=== PATIENT | male | born 1960 | race Caucasian/White ===

== ENCOUNTER 2016-08-10 17:28 | Emergency (ER) | payer OTHER ==
[~2016-08-10] VITALS: Ht 182.9 cm; Wt 128.0 kg
[~2016-08-10 17:28] MED LIST: FURO40TA3 PO; LEVO150T PO; POTA10CA28 PO
[2016-08-10 17:43] VITALS: BP 136/95; PULSE 85; TEMP 36.5; O2SAT 96; Ht 182.9 cm; Wt 128.0 kg
--- NOTE | 2016-08-10 18:18 | DIAGNOSTIC IMAGING REPORT ---
RIGHT ANKLE MIN 3 VIEWS ROUTINE CLINICAL HISTORY: Right ankle pain status post trauma COMPARISON: None. DISCUSSION: There is bimalleolar soft tissue swelling. There is a nondisplaced fracture the medial malleolus. There is a corticated ossicle at the lateral malleolar tip which is felt to be old. The ankle mortise appears intact. There is plantar calcaneal spurring. IMPRESSION: 1. Nondisplaced fracture involving the medial malleolus 2. 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 Bimalleolar soft tissue swelling Electronically signed by: Tyrell Nance M.D. 08/10/2016 6:16 PM Dictated Date/Time: 08/10/2016 6:15 PM
[2016-08-10] MEDS ORDERED: OXYC1TAB3 PO (19:15)
[2016-08-10] MEDS ORDERED: OXYCODONE IR HOME PACK PO ONE (19:15)
--- NOTE | 2016-08-10 21:36 | EMERGENCY ROOM VISIT NOTE ---
ED Visit Note First contact with patient: 17:47 CHIEF COMPLAINT: Ankle pain HISTORY OF PRESENT ILLNESS: This 56-year-old male patient presents to the emergency department after sustaining an injury to the right ankle and foot with a twisting, inversion motion about one hour ago. The patient was cutting wood, when he twisted, and injured his ankle. The patient complains of pain along the outside of the ankle. The patient is without pain of the foot. The patient rates the pain as dull and 7/10. The patient is not comfortably able to bear weight on the foot. Constant pain, worse with movement, weight bearing , and the dependent position. No knee pain, the patient is able to move their toes. No numbness or weakness of the foot, no laceration. The patient has not had a previous fracture to this ankle. The patient has taken nothing for the pain. The patient denies any other injury. REVIEW OF SYSTEMS: A 6 system review of systems was completed with positives and pertinent negatives listed in the HPI. ALLERGIES: No known allergies MEDICATIONS: No chronic medications PMH: Otherwise healthy SOCIAL HISTORY: Lives locally PHYSICAL EXAM: Vital Signs: Reviewed Nurse's notes, vital signs stable. GENERAL : White male, no acute distress, but appears in pain, well-developed, well- nourished. MENTAL STATUS: Alert, oriented to person place and time, and cooperative. MUSCULOSKELETAL: The right ankle is swollen and tender over the medial malleolus, but the skin is intact and there is no ligamentous instability. There is no fifth metatarsal tenderness. There is no tenderness over the rest of the foot. There is no calf or tibia/fibular tenderness. There is no visual deformity. The foot and toes are warm and well-perfused. Dorsalis pedis pulse 2+. Sensation to pain and light touch is intact. Capillary refill less than 2 seconds. RIGHT ANKLE MIN 3 VIEWS ROUTINE CLINICAL HISTORY: Right ankle pain status post trauma COMPARISON: None. DISCUSSION: There is bimalleolar soft tissue swelling. There is a nondisplaced fracture the medial malleolus. There is a corticated ossicle at the lateral malleolar tip which is felt to be old. The ankle mortise appears intact. There is plantar calcaneal spurring. IMPRESSION: 1. Nondisplaced fracture involving the medial malleolus 2. 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 Bimalleolar soft tissue swelling EMERGENCY DEPARTMENT COURSE: Physical exam and history were performed. Nursing notes and EMR were reviewed. The patient appears to have suffered injury to his right ankle. X-ray was obtained and read by myself and radiology as showing an acute fracture of the medial malleolus. The patient was placed in an Ortho-Glass splint with neurovascular status remaining intact. He was provided crutches and a course of oxycodone. She will need to follow with orthopedics for further care and management. He was otherwise invited back to the ER with new, worsening, or concerning symptoms. Problem List Medical Problems: (1) Bronchitis Nos Status: Resolved (2) Calcium Metab Disord,Nos Status: Chronic (3) Hyperlipidemia Nec/Nos Status: Chronic (4) Myalgia And Myositis Nos Status: Chronic (5) Obesity, Nos Status: Chronic Current/Historical Medications Scheduled Furosemide (Lasix), 40 MG PO BID Levothyroxine Sodium (Synthroid), 150 MCG PO QAM Potassium Chloride (Micro-K Ext Rel), 10 MEQ PO BID Scheduled PRN Oxycodone Immediate Rel Tab (Roxicodone Ir), 1-2 TAB PO Q6 PRN for Pain Allergies Coded Allergies: No Known Allergies (Unverified , 05/24/16) Vital Signs Date Time Temp Pulse Resp B/P Pulse Ox O2 Delivery O2 Flow Rate FiO2 08/10/16 17:43 36.5 85 18 136/95 96 Room Air Medications Administered Medications (Trade) Dose Ordered Sig/Elmo Route Start Time Stop Time Status Last Admin Dose Admin Oxycodone HCl (Roxicodone Immediate Rel 5MG Home Pack) 1 homepack UD ONCE PO 08/10/16 19:15 08/10/16 19:16 DC 08/10/16 19:45 1 HOMEPACK Departure Information Impression Primary Impression: Fracture of distal end of left fibula Dispostion Home / Self-Care Condition GOOD Prescriptions Oxycodone Immediate Rel Tab (ROXICODONE IR) 5 Mg Tab 1-2 TAB PO Q6 Y for Pain, #24 TAB Prov: Gil Juarez PA-C 08/10/16 Referrals Luís Carrasco M.D. (PCP) Abdiaziz Warren M.D. Forms HOME CARE DOCUMENTATION FORM, IMPORTANT VISIT INFORMATION Patient Instructions [facility], ED Fx Ankle General, ED Compartment Syndrome At Risk For Additional Instructions You were seen and evaluated today on an emergency basis only. This is not a substitute for, or an effort to provide, complete comprehensive medical care. It is not possible to recognize and treat all injuries or illnesses in a single emergency department visit. For this reason it is recommended that you followup with [facility] , Dr. Warren's office, by telephone in the morning to arrange a follow-up visit this week. Let them know you were seen in the emergency department to help facilitate care. For baseline pain relief you may alternate ibuprofen and acetaminophen every 4 hours for pain control. Take 600 mg ibuprofen (Advil) and then 4 hours later take 1000 mg acetaminophen (Tylenol). Do not take more than 3000 mg acetaminophen in a single day. Oxycodone (OxyIR) 5mg: Take ONE or TWO pills every SIX hours for breakthrough pain. Avoid alcohol, operating machinery or dangerous equipment, working on ladders or roofs, DRIVING, or situations where being under the influence may be dangerous. It is recommended to use an [id number] stool softener such as Colace, 100mg twice daily while taking this medication to avoid constipation. Do not get your splint wet. Use your crutches to help with walking. You are welcome to return to the emergency department anytime with new, worsening, or concerning symptoms.
== END 2016-08-10 19:47 | disposition home or self-care (01) ==
LOC: C.EDB 17:29 → C.EDD 19:47
DX: S82.891A Other fracture of right lower leg, initial encounter for closed fracture (principal); X58.XXXA Exposure to other specified factors, initial encounter

== ENCOUNTER → 2016-10-22 | Outpatient (CLI) | payer OTHER ==
[~2016-10-22] MED LIST changes: +OXYC1TAB3 PO
[2016-10-22 18:25] LABS: BLOOD UREA NITROGEN 17 mg/dl (7-18); BUN/CREATININE RATIO 21.8 (10-20); CALCIUM 9.4 mg/dl (8.5-10.1); CARBON DIOXIDE 32 mmol/L (21-32); CHLORIDE 99 mmol/L (98-107); GLUCOSE 84 mg/dl (70-99); POTASSIUM 3.6 mmol/L (3.5-5.1); SODIUM 137 mmol/L (136-145)
== END | disposition home or self-care (01) ==
LOC: C.LABSPEC 14:20
PROVIDERS: ATTEND Internal Medicine
DX: E03.9 Hypothyroidism, unspecified (principal)

== ENCOUNTER → 2017-02-07 | Outpatient (CLI) | payer OTHER | END | disposition home or self-care (01) | LOC: C.LABSPEC 18:03 | PROVIDERS: ATTEND Internal Medicine | DX: E03.9 Hypothyroidism, unspecified (principal) ==

== ENCOUNTER 2020-09-16 10:09 | Inpatient (IN) ==
[~2020-09-16 10:09] MED LIST changes: +ETOMIDATE 2 MG/ML 20 ML VIAL IV ONE; -FURO40TA3 PO; -LEVO150T PO; +MIDAZOLAM HCL 5 MG/ML VIAL IV ONE; -OXYC1TAB3 PO; -POTA10CA28 PO; +SUCCINYLCHOLINE CHLORIDE 20 MG/ML 10 ML VIAL IV ONE; +fentaNYL citrate 100 MCG/2 ML VIAL IV ONE
[2020-09-16] MEDS ORDERED: cefTRIAXone SODIUM 2,000 MG/70 ML BAG IV STA (10:28)
--- NOTE | 2020-09-16 10:40 | Emergency Department Note ---
Impression & Plan Pneumonia due to COVID-19 virus, Acute respiratory failure with hypoxia ED Provider Note Provider: Dat Pelayo MD DATE OF SERVICE: 09/16/2020 CHIEF COMPLAINT: Weakness, shortness of breath HISTORY OF PRESENT ILLNESS: Patient is a 60-year-old gentleman with a history of thyroid dysfunction presenting today via ambulance from home. Reports the patient was found to be hypoxic in the mid 50s on room air. Evidently is been sick for just over a week and was seen by his primary doctor last week and start amoxicillin this past . Patient states this might of helped a little bit. Evidently per EMS the niece checked on the patient's morning was able to get around and seemed much worse and somewhat lethargic and short of breath and thus called the ambulance. EMS reports that the niece had last seen him over the weekend and he was not doing near as bad. Patient states he feels fatigued and a bit short of breath but is very tired. Has been having fevers and febrile upon arrival here. Denies a smoking history. Denies any significant swelling. Denies chest pain or significant abdominal pain. He denies significant nausea or diarrhea. Patient denies taking any Tylenol today but has the last several days. REVIEW OF SYSTEMS: A total of 10 review of systems was obtained and negative except as stated above in the HPI. PAST MEDICAL HISTORY: As noted above MEDICATIONS: Reviewed home medications with the patient SOCIAL HISTORY: Patient denies smoking, patient lives by himself PHYSICAL EXAM: GENERAL: alert and oriented to person sitting on the stretcher appears in respiratory distress Head: normocephalic and atraumatic EYES: No injection, discharge or icterus. NECK: Trachea midline. Supple. ENT: Mucous membranes pink and moist. LUNGS: Airway patent. With tachypnea and increased work of breathing but the lung sounds are clear HEART: Regular tachycardic tachycardic rate and rhythm. No chest wall tenderness ABDOMEN: Soft and non-tender, without guarding or rebound. SKIN: Acyanotic, warm, dry, without rashes EXTREMITIES: Without significant tenderness with bilateral lower extremity swelling approximately 1-2+. No significant erythema noted. NEUROLOGICAL: No focal deficits. No aphasia. No facial droop or slurred speech. EK bpm sinus tachycardia without PVC or PAC. Some respiratory artifact but no clear ST segment elevation or depression appreciated. Incomplete right bundle rasheeda block noted. QTc 419. CONTINUOUS CARDIAC MONITORING: was ordered and showed a heart rate of 80s-110s bpm in sinus tachycardia to normal sinus rhythm ED Intubation Performed by myself with verbal consent from the patient Indication acute hypoxic respiratory failure. The patient was on 100% oxygen via BiPAP prior to the procedure. Suction, airway equipment, RSI drugs, respiratory equipment, and appropriate personnel were prepared prior to the initiation of the procedure. A time out was taken. Induction was performed with 25 mg of etomidate and paralysis with 150 mg of succinylcholine. After observing the clinical benefit of the medications, the airway was easily visualized utilizing a 3 glide scope. A 7.0 size ETT tube was placed atraumatically to 25 cm at the lips using standard technique. Patient did desat after initially starting intubation in the high 80s to 58% transiently during the procedure with 1 attempt to complete the intubation . The cuff inflated without signs of malfunction. There were bilateral breath sounds, positive colormetric change, no gastric sounds and postintubation x-ray obtained showing appropriate placement.. Post intubation sedation was administered using propofol drip with several pushes of Versed and fentanyl. Patient's laboratory studies and imaging reviewed. Differential includes Infection, dehydration, metabolic abnormality, hypo/hyperglycemia, electrolyte disturbance, anemia, hypoxia, cardiac sources, intracerebral event, toxicologic, neurologic, as well as other pathologies. IMPRESSION/MEDICAL DECISION MAKING: Patient is significantly hypoxic here on room air as well as on nonrebreather and switched to BiPAP quickly by respiratory given his hypoxia. Tachypneic with work of breathing and seems fatigued. Patient recent treatment with amoxicillin for respiratory complaint. No recent Covid test and this was sent. VBG and blood work including cultures and lactate was given. Patient without significant abdominal tenderness on exam. Patient states his swelling of the lower extremities is at baseline. Denies recent sick contact to his knowledge. Patient has not received any Covid vaccines. Given the fever and respiratory distress empirically given a dose of ceftriaxone to cover for any possible pneumonia. Laboratory studies without severe leukocytosis. D-dimer significantly at 6650. Mild hyponatremia. Lactate value at 2.1. Troponin just elevated likely demand in the setting of his hypoxia but the patient declines chest pain.. CRP significantly elevated. Covid was positive. Procalcitonin severely elevated 22.9. Patient's hypoxia persisted on BiPAP in the mid to high 80s again tachypneic. X-ray with diffuse infiltrative findings consistent with Covid pneumonia unfortunately. Given this discussed with the patient proceeding with intubation given the severe Covid pneumonia and respiratory status. He was in agreement and stated he would want everything done. Intubation as above. Patient slowly recovered after the derecruitment for the intubation with initial hypoxia resolving over 10 to 15 minutes to around 90%. Patient required significant sedation with propofol drip, fentanyl pushes, and Versed. Hospitalist was contacted. Unfortunately do not have documented contact information for patient's family to update them at this time. We will plan for CT of the chest to exclude PE given the D-dimer however given the findings believe his predominant issue again is Covid pneumonia. Discussed with the hospitalist with the plan to perform CTA on the way to the ICU. Hospitalist team is contacted by the director private as well. Patient's blood pressure decreased with increased propofol sedation and norepinephrine drip was ordered by the hospitalist team while here. Dr. Beckwith of the ICU evaluated the patient in the ER with plan for central line and ICU admission. IV dexamethasone was ordered given the hypoxic Covid patient. IV Tylenol ordered given the fever initially. DIAGNOSIS: Acute hypoxic respiratory failure, Covid pneumonia DISPOSITION: Hospitalist will evaluate Critical Care I have personally spent 52 minutes of critical care time in the direct management of this patient. This includes bedside care, interpretation of diagnostic studies, and testing, discussion with consultants, patient, and family members, and other required patient management activities. These 52 minutes is in excess of all separately billable procedures. Past Med/Surg History Family History (Updated 09/16/20 @ 13:31 by LUCY Kasper) Unknown No significant family history Social History Smoking Status: Never smoker Preferred Language: Moh[place] Feels Safe at Home: Yes Allergies Allergies Allergy/AdvReac Type Severity Reaction Status Date / Time No Known Allergies Allergy Unverified 05/24/16 12:21 Home Meds Home Medications Medication Instructions Recorded Confirmed FUROSEMIDE (LASIX) 40 mg PO BID #0 05/13/16 LEVOTHYROXINE SODIUM (SYNTHROID) 150 mcg PO QAM #0 05/13/16 Potassium Chloride (Micro-K Ext 10 meq PO BID #0 05/13/16 Rel) amoxicillin-pot clavulanate 1 tab PO UD 09/16/20 09/16/20 furosemide 40 mg PO BID 09/16/20 09/16/20 levothyroxine 175 mcg PO UD 09/16/20 09/16/20 potassium chloride 10 meq PO BID 09/16/20 09/16/20 Results & Data (ED) Vital Signs Vital Signs - 24 hr 09/16/20 10:28 09/16/20 10:33 09/16/20 10:34 Temperature 38.9 C H Temperature Source Oral Pulse Rate 111 H 102 H 103 H Pulse Rate from SpO2 Sensor 102 H Respiratory Rate 32 H 30 H 35 H Respiratory Effort / Characteristics Non-Labored Spontaneous Respiratory Depth Shallow Normal Respiratory Pattern Regular Blood Pressure 127/70 127/70 Blood Pressure Mean 89 89 Blood Pressure Position Sitting Pulse Oximetry 56 L 89 L 88 L Oxygen Delivery Method Room Air Non-rebreather Oxygen Flow Rate 0 Fraction of Inspired Oxygen 100 Sepsis Recent Fever Within 48 Hours Yes Sepsis New/Unexplained Change in Mental Status Yes Sepsis Action Taken by Nursing Physician Notified Arterial BP Systolic Arterial BP Diastolic Arterial BP Mean Arterial Pulse Rate Oxygen Flow Rate - Titration 15 Pulse Oximetry Post Tiitration 77 L 09/16/20 10:39 09/16/20 10:45 09/16/20 10:56 Temperature Temperature Source Pulse Rate 104 H 103 H 101 H Pulse Rate from SpO2 Sensor 104 H 103 H 101 H Respiratory Rate 25 H 35 H 32 H Respiratory Effort / Characteristics Respiratory Depth Respiratory Pattern Blood Pressure 133/74 Blood Pressure Mean 93 Blood Pressure Position Pulse Oximetry 90 90 87 L Oxygen Delivery Method BiPAP BiPAP Oxygen Flow Rate Fraction of Inspired Oxygen Sepsis Recent Fever Within 48 Hours Sepsis New/Unexplained Change in Mental Status Sepsis Action Taken by Nursing Arterial BP Systolic Arterial BP Diastolic Arterial BP Mean Arterial Pulse Rate Oxygen Flow Rate - Titration Pulse Oximetry Post Tiitration 09/16/20 11:00 09/16/20 11:15 09/16/20 11:16 Temperature Temperature Source Pulse Rate 100 H 97 H 97 H Pulse Rate from SpO2 Sensor 100 H 97 H 97 H Respiratory Rate 34 H 27 H 27 H Respiratory Effort / Characteristics Respiratory Depth Respiratory Pattern Blood Pressure 124/71 130/73 Blood Pressure Mean 88 92 Blood Pressure Position Pulse Oximetry 83 L 87 L 87 L Oxygen Delivery Method BiPAP Oxygen Flow Rate Fraction of Inspired Oxygen Sepsis Recent Fever Within 48 Hours Sepsis New/Unexplained Change in Mental Status Sepsis Action Taken by Nursing Arterial BP Systolic Arterial BP Diastolic Arterial BP Mean Arterial Pulse Rate Oxygen Flow Rate - Titration Pulse Oximetry Post Tiitration 09/16/20 11:26 09/16/20 11:30 09/16/20 11:31 Temperature Temperature Source Pulse Rate 99 H 104 H 112 H Pulse Rate from SpO2 Sensor 99 H 106 H 112 H Respiratory Rate 30 H 38 H 26 H Respiratory Effort / Characteristics Respiratory Depth Respiratory Pattern Blood Pressure 135/77 143/86 H Blood Pressure Mean 96 105 Blood Pressure Position Pulse Oximetry 87 L 77 L 58 L Oxygen Delivery Method Oxygen Flow Rate Fraction of Inspired Oxygen Sepsis Recent Fever Within 48 Hours Sepsis New/Unexplained Change in Mental Status Sepsis Action Taken by Nursing Arterial BP Systolic Arterial BP Diastolic Arterial BP Mean Arterial Pulse Rate Oxygen Flow Rate - Titration Pulse Oximetry Post Tiitration 09/16/20 11:32 09/16/20 11:38 09/16/20 11:40 Temperature Temperature Source Pulse Rate 105 H 106 H 100 H Pulse Rate from SpO2 Sensor 104 H 106 H 101 H Respiratory Rate 17 24 15 Respiratory Effort / Characteristics Respiratory Depth Respiratory Pattern Blood Pressure 173/90 H 182/101 H 143/77 H Blood Pressure Mean 117 128 99 Blood Pressure Position Pulse Oximetry 64 L 75 L 79 L Oxygen Delivery Method Mechanical Vent Mechanical Vent Mechanical Vent Oxygen Flow Rate Fraction of Inspired Oxygen Sepsis Recent Fever Within 48 Hours Sepsis New/Unexplained Change in Mental Status Sepsis Action Taken by Nursing Arterial BP Systolic Arterial BP Diastolic Arterial BP Mean Arterial Pulse Rate Oxygen Flow Rate - Titration Pulse Oximetry Post Tiitration 09/16/20 11:41 09/16/20 11:45 09/16/20 11:46 Temperature Temperature Source Pulse Rate 101 H 102 H 100 H Pulse Rate from SpO2 Sensor 101 H 102 H 100 H Respiratory Rate 17 24 21 Respiratory Effort / Characteristics Respiratory Depth Respiratory Pattern Blood Pressure 121/64 Blood Pressure Mean 83 Blood Pressure Position Pulse Oximetry 78 L 78 L 78 L Oxygen Delivery Method Mechanical Vent Mechanical Vent Mechanical Vent Oxygen Flow Rate Fraction of Inspired Oxygen Sepsis Recent Fever Within 48 Hours Sepsis New/Unexplained Change in Mental Status Sepsis Action Taken by Nursing Arterial BP Systolic Arterial BP Diastolic Arterial BP Mean Arterial Pulse Rate Oxygen Flow Rate - Titration Pulse Oximetry Post Tiitration 09/16/20 11:50 09/16/20 11:58 09/16/20 12:00 Temperature Temperature Source Pulse Rate 96 H 93 H 92 H Pulse Rate from SpO2 Sensor 96 H 93 H 92 H Respiratory Rate 29 H 18 23 Respiratory Effort / Characteristics Respiratory Depth Respiratory Pattern Blood Pressure 112/57 L 116/59 L 109/63 Blood Pressure Mean 75 78 78 Blood Pressure Position Pulse Oximetry 78 L 91 90 Oxygen Delivery Method Mechanical Vent Mechanical Vent Mechanical Vent Oxygen Flow Rate Fraction of Inspired Oxygen Sepsis Recent Fever Within 48 Hours Sepsis New/Unexplained Change in Mental Status Sepsis Action Taken by Nursing Arterial BP Systolic Arterial BP Diastolic Arterial BP Mean Arterial Pulse Rate Oxygen Flow Rate - Titration Pulse Oximetry Post Tiitration 09/16/20 12:01 09/16/20 12:05 09/16/20 12:06 Temperature 38.3 C H Temperature Source Axillary Pulse Rate 94 H 94 H Pulse Rate from SpO2 Sensor 94 H 93 H Respiratory Rate 23 23 Respiratory Effort / Characteristics Respiratory Depth Respiratory Pattern Blood Pressure 113/61 Blood Pressure Mean 78 Blood Pressure Position Pulse Oximetry 90 88 L Oxygen Delivery Method Mechanical Vent Mechanical Vent Oxygen Flow Rate Fraction of Inspired Oxygen Sepsis Recent Fever Within 48 Hours Sepsis New/Unexplained Change in Mental Status Sepsis Action Taken by Nursing Arterial BP Systolic Arterial BP Diastolic Arterial BP Mean Arterial Pulse Rate Oxygen Flow Rate - Titration Pulse Oximetry Post Tiitration 09/16/20 12:08 09/16/20 12:10 09/16/20 12:15 Temperature Temperature Source Pulse Rate 92 H 91 H Pulse Rate from SpO2 Sensor 92 H 91 H Respiratory Rate 23 24 25 H Respiratory Effort / Characteristics Respiratory Depth Respiratory Pattern Blood Pressure 107/60 101/58 L Blood Pressure Mean 75 72 Blood Pressure Position Pulse Oximetry 82 L 83 L Oxygen Delivery Method Mechanical Vent Mechanical Vent Oxygen Flow Rate Fraction of Inspired Oxygen 100 Sepsis Recent Fever Within 48 Hours Sepsis New/Unexplained Change in Mental Status Sepsis Action Taken by Nursing Arterial BP Systolic Arterial BP Diastolic Arterial BP Mean Arterial Pulse Rate Oxygen Flow Rate - Titration Pulse Oximetry Post Tiitration 09/16/20 12:16 09/16/20 12:20 09/16/20 12:21 Temperature Temperature Source Pulse Rate 92 H 89 88 Pulse Rate from SpO2 Sensor 92 H 90 87 Respiratory Rate 24 21 18 Respiratory Effort / Characteristics Respiratory Depth Respiratory Pattern Blood Pressure 87/61 L 86/58 L Blood Pressure Mean 69 67 Blood Pressure Position Pulse Oximetry 82 L 85 L 84 L Oxygen Delivery Method Mechanical Vent Mechanical Vent Mechanical Vent Oxygen Flow Rate Fraction of Inspired Oxygen Sepsis Recent Fever Within 48 Hours Sepsis New/Unexplained Change in Mental Status Sepsis Action Taken by Nursing Arterial BP Systolic Arterial BP Diastolic Arterial BP Mean Arterial Pulse Rate Oxygen Flow Rate - Titration Pulse Oximetry Post Tiitration 09/16/20 12:22 09/16/20 12:25 09/16/20 12:29 Temperature Temperature Source Pulse Rate 87 87 88 Pulse Rate from SpO2 Sensor 87 87 88 Respiratory Rate 20 24 24 Respiratory Effort / Characteristics Respiratory Depth Respiratory Pattern Blood Pressure 85/53 L 81/52 L Blood Pressure Mean 63 61 Blood Pressure Position Pulse Oximetry 86 L 89 L 91 Oxygen Delivery Method Mechanical Vent Mechanical Vent Mechanical Vent Oxygen Flow Rate Fraction of Inspired Oxygen Sepsis Recent Fever Within 48 Hours Sepsis New/Unexplained Change in Mental Status Sepsis Action Taken by Nursing Arterial BP Systolic Arterial BP Diastolic Arterial BP Mean Arterial Pulse Rate Oxygen Flow Rate - Titration Pulse Oximetry Post Tiitration 09/16/20 12:30 09/16/20 12:31 09/16/20 12:35 Temperature Temperature Source Pulse Rate 87 87 88 Pulse Rate from SpO2 Sensor 85 87 88 Respiratory Rate 24 24 24 Respiratory Effort / Characteristics Respiratory Depth Respiratory Pattern Blood Pressure 81/54 L 77/51 L Blood Pressure Mean 63 59 Blood Pressure Position Pulse Oximetry 90 90 90 Oxygen Delivery Method Mechanical Vent Mechanical Vent Mechanical Vent Oxygen Flow Rate Fraction of Inspired Oxygen Sepsis Recent Fever Within 48 Hours Sepsis New/Unexplained Change in Mental Status Sepsis Action Taken by Nursing Arterial BP Systolic Arterial BP Diastolic Arterial BP Mean Arterial Pulse Rate Oxygen Flow Rate - Titration Pulse Oximetry Post Tiitration 09/16/20 12:40 09/16/20 12:45 09/16/20 12:46 Temperature Temperature Source Pulse Rate 87 85 84 Pulse Rate from SpO2 Sensor 87 85 84 Respiratory Rate 24 23 23 Respiratory Effort / Characteristics Respiratory Depth Respiratory Pattern Blood Pressure 78/49 L 89/57 L Blood Pressure Mean 58 67 Blood Pressure Position Pulse Oximetry 90 87 L 88 L Oxygen Delivery Method Mechanical Vent Mechanical Vent Mechanical Vent Oxygen Flow Rate Fraction of Inspired Oxygen Sepsis Recent Fever Within 48 Hours Sepsis New/Unexplained Change in Mental Status Sepsis Action Taken by Nursing Arterial BP Systolic Arterial BP Diastolic Arterial BP Mean Arterial Pulse Rate Oxygen Flow Rate - Titration Pulse Oximetry Post Tiitration 09/16/20 12:50 09/16/20 12:55 09/16/20 13:00 Temperature Temperature Source Pulse Rate 90 91 H 92 H Pulse Rate from SpO2 Sensor 90 91 H 92 H Respiratory Rate 18 21 18 Respiratory Effort / Characteristics Respiratory Depth Respiratory Pattern Blood Pressure 97/65 L 112/68 114/67 Blood Pressure Mean 75 82 82 Blood Pressure Position Pulse Oximetry 86 L 86 L 86 L Oxygen Delivery Method Mechanical Vent Mechanical Vent Mechanical Vent Oxygen Flow Rate Fraction of Inspired Oxygen Sepsis Recent Fever Within 48 Hours Sepsis New/Unexplained Change in Mental Status Sepsis Action Taken by Nursing Arterial BP Systolic 97 Arterial BP Diastolic 58 Arterial BP Mean 72 Arterial Pulse Rate 105 H Oxygen Flow Rate - Titration Pulse Oximetry Post Tiitration 09/16/20 13:01 09/16/20 13:10 09/16/20 13:15 Temperature Temperature Source Pulse Rate 91 H 90 91 H Pulse Rate from SpO2 Sensor 91 H 91 H 91 H Respiratory Rate 17 18 18 Respiratory Effort / Characteristics Respiratory Depth Respiratory Pattern Blood Pressure 139/85 129/85 Blood Pressure Mean 103 99 Blood Pressure Position Pulse Oximetry 86 L 87 L 88 L Oxygen Delivery Method Mechanical Vent Mechanical Vent Mechanical Vent Oxygen Flow Rate Fraction of Inspired Oxygen Sepsis Recent Fever Within 48 Hours Sepsis New/Unexplained Change in Mental Status Sepsis Action Taken by Nursing Arterial BP Systolic 108 103 107 Arterial BP Diastolic 68 62 61 Arterial BP Mean 79 74 74 Arterial Pulse Rate 91 H 90 91 H Oxygen Flow Rate - Titration Pulse Oximetry Post Tiitration 09/16/20 13:16 09/16/20 13:20 09/16/20 13:25 Temperature Temperature Source Pulse Rate 91 H 91 H 90 Pulse Rate from SpO2 Sensor 91 H 91 H 91 H Respiratory Rate 21 21 16 Respiratory Effort / Characteristics Respiratory Depth Respiratory Pattern Blood Pressure 137/85 136/85 Blood Pressure Mean 102 102 Blood Pressure Position Pulse Oximetry 88 L 89 L 89 L Oxygen Delivery Method Mechanical Vent Mechanical Vent Mechanical Vent Oxygen Flow Rate Fraction of Inspired Oxygen Sepsis Recent Fever Within 48 Hours Sepsis New/Unexplained Change in Mental Status Sepsis Action Taken by Nursing Arterial BP Systolic 106 110 110 Arterial BP Diastolic 62 59 60 Arterial BP Mean 74 74 75 Arterial Pulse Rate 91 H 91 H 90 Oxygen Flow Rate - Titration Pulse Oximetry Post Tiitration Laboratory Data Result diagrams: 09/16/20 10:27 09/16/20 10:27 Lab Results 09/16/20 09/16/20 09/16/20 Range/Units 10:27 10:27 10:27 WBC 10.33 (4.8-10.8) K/uL RBC 4.48 L (4.7-6.1) M/uL Hgb 13.3 L (14.0-18.0) g/dL Hct 39.5 L (42-52) % MCV 88.2 (80-100) fL MCH 29.7 (25-34) pg MCHC 33.7 (32-36) g/dL RDW Std Deviation 50.5 H (36.4-46.3) fL RDW Coeff of Royce 15.7 H (11.5-14.5) % Plt Count 136 (130-400) K/uL Neutrophils % (Manual) 94.8 % Lymphocytes % (Manual) 2.6 % Monocytes % (Manual) 1.7 % Metamyelocytes % (Man) 0.9 % Neutrophils # (Manual) 9.79 H (1.4-6.5) K/uL Total Absolute Neuts 9.79 H (1.4-6.5) K/uL Lymphocytes # (Manual) 0.27 L (1.2-3.4) K/uL Total Abs Lymphocytes 0.27 L (1.2-3.4) K/uL Monocytes # (Manual) 0.18 (0.11-0.59) K/uL Metamyelocytes # (Man) 0.09 H (0-0) K/uL Platelet Estimate Decreased L (Normal) Giant Platelets 1+ PT 11.6 (9.0-12.0) Seconds INR 1.2 H (0.9-1.1) D-Dimer 6650 H* (0-500) ug/L FEU VBG pH (7.36-7.41) VBG pCO2 (38-50) mmHg VBG pO2 mmHg VBG HCO3 mmol/L VBG O2 Saturation % VBG Base Excess mEq/L Barometric Pressure mm/Hg Sodium 131 L (136-145) mmol/L Potassium 3.7 (3.5-5.1) mmol/L Chloride 96 L (98-107) mmol/L Carbon Dioxide 27 (21-32) mmol/L Anion Gap 8.0 (3-11) BUN 30 H (7-18) mg/dl Creatinine 1.24 (0.6-1.4) mg/dl Est Cr Clr Drug Dosing 94.1 ml/min Est GFR ( Amer) 73.8 Est GFR (Non-Af Amer) 63.7 BUN/Creatinine Ratio 23.9 H (10-20) Glucose 103 H (70-99) mg/dl Lactate (0.4-2.0) mmol/L Calcium 8.4 L (8.5-10.1) mg/dl Total Bilirubin 0.8 (0.2-1) mg/dl AST 204 H (15-37) U/L ALT 64 (12-78) U/L Alkaline Phosphatase 72 (45-117) U/L Troponin I 0.074 H* (0-0.045) ng/ml C-Reactive Protein 35.70 H (0-0.29) mg/dl NT-Pro-B Natriuret Pep 372 (0-900) pg/ml Total Protein 9.1 H (6.4-8.2) gm/dl Albumin 2.6 L (3.4-5.0) gm/dl Globulin 6.5 H (2.5-4.0) gm/dl Albumin/Globulin Ratio 0.4 L (0.9-2) Lipase 187 (73-393) U/L Procalcitonin (0-0.5) ng/ml COVID-19 Eval Order SARS-CoV-2 (PCR) (Negative) Influenza Type A (PCR) (Neg) Influenza Type B (PCR) (Neg) RSV (RT-PCR) (Neg) 09/16/20 09/16/20 09/16/20 Range/Units 10:27 10:27 10:42 WBC (4.8-10.8) K/uL RBC (4.7-6.1) M/uL Hgb (14.0-18.0) g/dL Hct (42-52) % MCV (80-100) fL MCH (25-34) pg MCHC (32-36) g/dL RDW Std Deviation (36.4-46.3) fL RDW Coeff of Royce (11.5-14.5) % Plt Count (130-400) K/uL Neutrophils % (Manual) % Lymphocytes % (Manual) % Monocytes % (Manual) % Metamyelocytes % (Man) % Neutrophils # (Manual) (1.4-6.5) K/uL Total Absolute Neuts (1.4-6.5) K/uL Lymphocytes # (Manual) (1.2-3.4) K/uL Total Abs Lymphocytes (1.2-3.4) K/uL Monocytes # (Manual) (0.11-0.59) K/uL Metamyelocytes # (Man) (0-0) K/uL Platelet Estimate (Normal) Giant Platelets PT (9.0-12.0) Seconds INR (0.9-1.1) D-Dimer (0-500) ug/L FEU VBG pH 7.49 H (7.36-7.41) VBG pCO2 36 L (38-50) mmHg VBG pO2 43 mmHg VBG HCO3 27 mmol/L VBG O2 Saturation 82.0 % VBG Base Excess 3.9 mEq/L Barometric Pressure 732.9 mm/Hg Sodium (136-145) mmol/L Potassium (3.5-5.1) mmol/L Chloride (98-107) mmol/L Carbon Dioxide (21-32) mmol/L Anion Gap (3-11) BUN (7-18) mg/dl Creatinine (0.6-1.4) mg/dl Est Cr Clr Drug Dosing ml/min Est GFR ( Amer) Est GFR (Non-Af Amer) BUN/Creatinine Ratio (10-20) Glucose (70-99) mg/dl Lactate 2.2 H* (0.4-2.0) mmol/L Calcium (8.5-10.1) mg/dl Total Bilirubin (0.2-1) mg/dl AST (15-37) U/L ALT (12-78) U/L Alkaline Phosphatase (45-117) U/L Troponin I (0-0.045) ng/ml C-Reactive Protein (0-0.29) mg/dl NT-Pro-B Natriuret Pep (0-900) pg/ml Total Protein (6.4-8.2) gm/dl Albumin (3.4-5.0) gm/dl Globulin (2.5-4.0) gm/dl Albumin/Globulin Ratio (0.9-2) Lipase (73-393) U/L Procalcitonin 22.99 H (0-0.5) ng/ml COVID-19 Eval Order SARS-CoV-2 (PCR) (Negative) Influenza Type A (PCR) (Neg) Influenza Type B (PCR) (Neg) RSV (RT-PCR) (Neg) 09/16/20 09/16/20 Range/Units 11:05 11:05 WBC (4.8-10.8) K/uL RBC (4.7-6.1) M/uL Hgb (14.0-18.0) g/dL Hct (42-52) % MCV (80-100) fL MCH (25-34) pg MCHC (32-36) g/dL RDW Std Deviation (36.4-46.3) fL RDW Coeff of Royce (11.5-14.5) % Plt Count (130-400) K/uL Neutrophils % (Manual) % Lymphocytes % (Manual) % Monocytes % (Manual) % Metamyelocytes % (Man) % Neutrophils # (Manual) (1.4-6.5) K/uL Total Absolute Neuts (1.4-6.5) K/uL Lymphocytes # (Manual) (1.2-3.4) K/uL Total Abs Lymphocytes (1.2-3.4) K/uL Monocytes # (Manual) (0.11-0.59) K/uL Metamyelocytes # (Man) (0-0) K/uL Platelet Estimate (Normal) Giant Platelets PT (9.0-12.0) Seconds INR (0.9-1.1) D-Dimer (0-500) ug/L FEU VBG pH (7.36-7.41) VBG pCO2 (38-50) mmHg VBG pO2 mmHg VBG HCO3 mmol/L VBG O2 Saturation % VBG Base Excess mEq/L Barometric Pressure mm/Hg Sodium (136-145) mmol/L Potassium (3.5-5.1) mmol/L Chloride (98-107) mmol/L Carbon Dioxide (21-32) mmol/L Anion Gap (3-11) BUN (7-18) mg/dl Creatinine (0.6-1.4) mg/dl Est Cr Clr Drug Dosing ml/min Est GFR ( Amer) Est GFR (Non-Af Amer) BUN/Creatinine Ratio (10-20) Glucose (70-99) mg/dl Lactate (0.4-2.0) mmol/L Calcium (8.5-10.1) mg/dl Total Bilirubin (0.2-1) mg/dl AST (15-37) U/L ALT (12-78) U/L Alkaline Phosphatase (45-117) U/L Troponin I (0-0.045) ng/ml C-Reactive Protein (0-0.29) mg/dl NT-Pro-B Natriuret Pep (0-900) pg/ml Total Protein (6.4-8.2) gm/dl Albumin (3.4-5.0) gm/dl Globulin (2.5-4.0) gm/dl Albumin/Globulin Ratio (0.9-2) Lipase (73-393) U/L Procalcitonin (0-0.5) ng/ml COVID-19 Eval Order CovFluRsv at [facility] SARS-CoV-2 (PCR) POSITIVE A* (Negative) Influenza Type A (PCR) Negative (Neg) Influenza Type B (PCR) Negative (Neg) RSV (RT-PCR) Negative (Neg) Administered Medications Fentanyl Citrate (Fentanyl Citrate 100 Mcg/2 Ml Vial) 100 mcg IV NOW PRN PRN Reason: Agitation Stop: 09/30/20 12:08 Last Admin: 09/16/20 12:45 Dose: 100 mcg Documented by: [id number] Propofol (Diprivan) 1,000 mg in 100 mls @ 40.5 mls/hr IV .Q2H29M [facility]; Protocol Stop: 09/19/20 11:14 Last Titration: 09/16/20 12:09 Dose: 45 mcg/kg/min, 40.5 mls/hr Documented by: [id number] Titration: 09/16/20 12:03 Dose: 40 mcg/kg/min, 36 mls/hr Documented by: [id number] Titration: 09/16/20 11:53 Dose: 35 mcg/kg/min, 31.5 mls/hr Documented by: [id number] Titration: 09/16/20 11:46 Dose: 30 mcg/kg/min, 27 mls/hr Documented by: [id number] Titration: 09/16/20 11:40 Dose: 25 mcg/kg/min, 22.5 mls/hr Documented by: [id number] Admin: 09/16/20 11:35 Dose: 20 mcg/kg/min, 18 mls/hr Documented by: [id number] Cosigned by: [id number] Norepinephrine Bitartrate (Levophed/D5w) 8 mg in 508 mls @ 28.575 mls/hr IV .[id number] [facility]; Protocol Stop: 10/16/20 12:35 Last Admin: 09/16/20 12:39 Dose: 0.05 mcg/kg/min, 28.6 mls/hr Documented by: [id number] Cosigned by: [id number] Fentanyl Citrate (Fentanyl Drip) 1,250 mcg in 250 mls @ 5 mls/hr IV .Q50H [facility]; Protocol Stop: 09/30/20 13:14 Last Admin: 09/16/20 13:22 Dose: 25 mcg/hr, 5 mls/hr Documented by: [id number] Cosigned by: [id number] Discontinued Medications Dexamethasone Sodium Phosphate (DexamethasonePf 10 Mg/Ml Vial) 6 mg IV NOW ONE Stop: 09/16/20 11:53 Last Admin: 09/16/20 11:58 Dose: 6 mg Documented by: [id number] Dexamethasone Sodium Phosphate (DexamethasonePf 10 Mg/Ml Vial) 4 mg IV NOW ONE Stop: 09/16/20 12:06 Last Admin: 09/16/20 12:31 Dose: 4 mg Documented by: [id number] Etomidate (Etomidate 2 Mg/Ml 20 Ml Vial) 30 mg IV NOW ONE Stop: 09/16/20 11:06 Last Increment: 09/16/20 11:28 Dose: 25 mg Documented by: [id number] Fentanyl Citrate (Fentanyl Citrate 100 Mcg/2 Ml Vial) 100 mcg IV NOW STA Stop: 09/16/20 11:51 Last Admin: 09/16/20 11:37 Dose: 100 mcg Documented by: [id number] Ceftriaxone Sodium (Rocephin) 2,000 mg in 70 mls @ 140 mls/hr IV NOW STA Stop: 09/16/20 10:57 Last Infusion: 09/16/20 11:34 Dose: 0 mls/hr Documented by: [id number] Admin: 09/16/20 10:39 Dose: 140 mls/hr Documented by: [id number] Acetaminophen (Ofirmev) 1,000 mg in 100 mls @ 400 mls/hr IV NOW STA Stop: 09/16/20 11:19 Last Infusion: 09/16/20 12:20 Dose: 0 mls/hr Documented by: [id number] Admin: 09/16/20 12:03 Dose: 400 mls/hr Documented by: [id number] Midazolam HCl (Midazolam Hcl 5 Mg/Ml 1 Ml Vial) 5 mg IV NOW STA Stop: 09/16/20 11:52 Last Admin: 09/16/20 11:42 Dose: 5 mg Documented by: [id number] Midazolam HCl (Midazolam Hcl 5 Mg/Ml 1 Ml Vial) 5 mg IV NOW STA Stop: 09/16/20 11:52 Last Admin: 09/16/20 11:45 Dose: 5 mg Documented by: [id number] Miscellaneous (Rapid Sequence Induction Bag) Confirm Administered Dose 1 ea .ROUTE .STK-MED ONE Stop: 09/16/20 12:03 Last Admin: 09/16/20 12:04 Dose: 1 ea Documented by: [id number] Miscellaneous (Stat Iv Infusion Titration Per Protocol) 1 ea N/A NOW STA Stop: 09/16/20 12:35 Last Admin: 09/16/20 12:39 Dose: 1 ea Documented by: [id number] Norepinephrine Bitartrate (Norepinephrine/D5w 8 Mg/508 Ml) Confirm Administered Dose 8 mg IV .STK-MED ONE Stop: 09/16/20 12:29 Last Admin: 09/16/20 12:39 Dose: Not Given Documented by: [id number] Succinylcholine Chloride (Succinylcholine Chloride 20 Mg/Ml 10 Ml Vial) 150 mg IV NOW STA Stop: 09/16/20 11:06 Last Admin: 09/16/20 11:28 Dose: 150 mg Documented by: [id number] Imaging Data Radiologist's Impression: Chest X-Ray 09/16/20 10:28 XR chest 1V portable CLINICAL HISTORY: Fever, hypoxia, sob COMPARISON STUDY: No previous studies for comparison. FINDINGS: Lung volumes are diminished. Extensive bilateral consolidation within the lungs is noted. Cardiac silhouette is obscured on this examination. No pneumothorax is noted. No pleural effusion is identified. IMPRESSION: 1. Extensive consolidation throughout the lungs. The findings favor pneumonia. Pulmonary edema could appear similar but is considered less likely. Radiographic follow up is recommended. 2. Low lung volumes. ACT 112: Negative or not required by law. Electronically signed by: Suresh Montes M.D. 09/16/2020 11:03 AM Chest X-Ray 09/16/20 11:39 XR chest 1V portable CLINICAL HISTORY: intubation COMPARISON STUDY: 09/16/2020 FINDINGS: The cardiac and mediastinal contours remain stable. There are extensive multifocal pulmonary airspace opacities minimally progressive when compared the prior study. There is been interval insertion of an endotracheal tube 45 mm above the fernando.[ IMPRESSION: 1. Aggressive extensive multifocal pulmonary airspace opacities 2. Interval placement of an endotracheal tube 45 mm above the fernando. ACT 112: Negative or not required by law. Electronically signed by: Tyrell Nance M.D. 09/16/2020 11:51 AM Discharge Plan Visit Data Chief Complaint: Shortness of Breath/Dyspnea Stated Complaint: RESP. DIFFICULTY, POSS. COVID ED Provider: Dat Pelayo Discharge Problem: Pneumonia due to COVID-19 virus, Acute respiratory failure with hypoxia Patient Disposition: Admitted As Inpatient Condition: Critical Prescriptions Prescriptions: No Action FUROSEMIDE (LASIX) 40 MG tablet 40 mg PO BID Qty: 0 RF: 0 LEVOTHYROXINE SODIUM (SYNTHROID) 150 MCG tablet 150 mcg PO QAM Qty: 0 RF: 0 Potassium Chloride (Micro-K Ext Rel) 10 MEQ CONTR REL CAP 10 meq PO BID Qty: 0 RF: 0 furosemide 40 mg tablet 40 mg PO BID RF: 0 levothyroxine 175 mcg tablet 175 mcg PO UD RF: 0 potassium chloride 10 mEq tablet,ER particles/crystals 10 meq PO BID RF: 0 amoxicillin-pot clavulanate 500-125 mg tablet 1 tab PO UD RF: 0 Referrals Referrals: Luís Hooper MD [Primary Care Provider] -
[2020-09-16 10:43] LABS: Mean Corpuscular Hgb Conc 33.7 g/dL (32-36)
[2020-09-16 10:58] LABS: Hematocrit (blood only) 39.5 % (42-52); Hemoglobin 13.3 g/dL (14.0-18.0); Mean Corpuscular Hemoglobin 29.7 pg (25-34); Mean Corpuscular Volume 88.2 fL (80-100); RDW Coefficient of Variation 15.7 % (11.5-14.5); RDW Standard Deviation 50.5 fL (36.4-46.3); Red Blood Count 4.48 M/uL (4.7-6.1); White Blood Count 10.33 K/uL (4.8-10.8)
[2020-09-16 11:02] LABS: Albumin Level 2.6 gm/dl (3.4-5.0); BUN Creatinine Ratio 23.9 (10-20); Calcium 8.4 mg/dl (8.5-10.1); Creatinine Clr Calc Pharmacy 94.1 ml/min; Est GFR (African American) 73.8; Est GFR (Non-African American) 63.7; Potassium 3.7 mmol/L (3.5-5.1)
[2020-09-16 11:03] LABS: Base Excess VBG 3.9 mEq/L; pH VBG 7.49 (7.36-7.41)
--- NOTE | 2020-09-16 11:04 | XRay Report ---
XR chest 1V portable CLINICAL HISTORY: Fever, hypoxia, sob COMPARISON STUDY: No previous studies for comparison. FINDINGS: Lung volumes are diminished. Extensive bilateral consolidation within the lungs is noted. C ardiac silhouette is obscured on this examination. No pneumothorax is noted. No pleural effusion is i dentified. IMPRESSION: 1. Extensive consolidation throughout the lungs. The findings favor pneumonia. Pulmonary edema could appear similar but is considered less likely. Radiographic follow up is recommended. 2. Low lung volumes. ACT 112: Negative or not required by law. Electronically signed by: Suresh Montes M.D. 09/16/2020 11:03 AM
[2020-09-16] MEDS ORDERED: ACETAMINOPHEN 1,000 MG/100 ML VIAL IV STA (11:05)
[2020-09-16] MEDS ORDERED: STAT IV Infusion **Titration per Protocol STA ×3 (11:05→13:08)
[2020-09-16] MEDS ORDERED: SUCCINYLCHOLINE CHLORIDE 20 MG/ML 10 ML VIAL IV STA (11:05)
[2020-09-16] MEDS ORDERED: PROPOFOL BOLUS FROM BAG IV PRN (11:05)
[2020-09-16] MEDS ORDERED: ETOMIDATE 2 MG/ML 20 ML VIAL IV ONE (11:05)
[2020-09-16 11:18] LABS: Albumin Globulin Ratio 0.4 (0.9-2); Bilirubin,Total 0.8 mg/dl (0.2-1); C Reactive Protein 35.7 mg/dl (0-0.29); Globulin 6.5 gm/dl (2.5-4.0); Total Protein 9.1 gm/dl (6.4-8.2); Troponin I 0.074 ng/ml (0-0.045)
[2020-09-16 11:21] LABS: INR 1.2 (0.9-1.1); Prothrombin Time 11.6 Seconds (9.0-12.0)
[2020-09-16 11:23] LABS: D Dimer 6650 ug/L FEU (0-500)
[2020-09-16 11:27] LABS: ALC (manual) 0.27 K/uL (1.2-3.4); ANC (manual) 9.79 K/uL (1.4-6.5); Giant Platelets 1+; Lymphocytes # (manual) 0.27 K/uL (1.2-3.4); Lymphocytes % (manual) 2.6 %; Metamyelocytes # (manual) 0.09 K/uL (0-0); Metamyelocytes % (manual) 0.9 %; Monocytes # (manual) 0.18 K/uL (0.11-0.59); Monocytes % (manual) 1.7 %; Neutrophils # (manual) 9.79 K/uL (1.4-6.5); Neutrophils % (manual) 94.8 %; Platelet Count 136 K/uL (130-400); Platelet Estimate Decreased (Normal)
[2020-09-16] MEDS: propofoL 1,000 MG/100 ML VIAL IV SCH ×5 (11:35→23:46)
[2020-09-16 11:49] LABS: Influenza A virus by PCR Negative (Neg); Influenza B virus by PCR Negative (Neg); RSV by PCR Negative (Neg)
[2020-09-16] MEDS ORDERED: fentaNYL citrate 100 MCG/2 ML VIAL IV STA (11:50)
[2020-09-16] MEDS ORDERED: MIDAZOLAM HCL 5 MG/ML 1 ML VIAL IV STA ×2 (11:51)
[2020-09-16] MEDS ORDERED: dexAMETHasone**PF** 10 MG/ML VIAL IV ONE ×2 (11:52→12:05)
--- NOTE | 2020-09-16 11:53 | XRay Report ---
XR chest 1V portable CLINICAL HISTORY: intubation COMPARISON STUDY: 09/16/2020 FINDINGS: The cardiac and mediastinal contours remain stable. There are extensive multifocal pulmonar y airspace opacities minimally progressive when compared the prior study. There is been interval inse rtion of an endotracheal tube 45 mm above the fernando.[ IMPRESSION: 1. Aggressive extensive multifocal pulmonary airspace opacities 2. Interval placement of an endotracheal tube 45 mm above the fernando. ACT 112: Negative or not required by law. Electronically signed by: Tyrell Nance M.D. 09/16/2020 11:51 AM
[2020-09-16 11:56] LABS: SARS CoV2 RNA(COVID-19) InHosp POSITIVE (Negative)
[2020-09-16] MEDS ORDERED: RAPID SEQUENCE INDUCTION BAG ONE (12:02)
[2020-09-16] MEDS ORDERED: fentaNYL citrate 100 MCG/2 ML VIAL IV PRN (12:09)
[2020-09-16] MEDS ORDERED: NOREPINEPHRINE/D5W 8 MG/508 ML IV ONE (12:28)
[2020-09-16] MEDS: NOREPINEPHRINE/D5W 8 MG/508 ML BAG IV SCH (12:39)
[2020-09-16] MEDS ORDERED: cefTRIAXone SODIUM 1,000 MG in DEXTROSE 5% 50 ML IV SCH (13:15)
[2020-09-16] MEDS: fentaNYL DRIP 1,250 MCG/250 ML BAG IV SCH (13:22)
--- NOTE | 2020-09-16 13:51 | History & Physical Report ---
Date of Service September 16, 2020 Assessment & Plan (1) Pneumonia due to COVID-19 virus: Severe COVID - unknown day but reportedly between 12-14 days of illness. - Decadron 10mg IV for 5 days - Consider Tocilizumab- CRP 35, intubated on 100% - Supportive Care, ARDSnet ventilation per ICU- Pending P:F ratio will likely need proned - Sedate to RASS -2 to -4 for compliance and oxygenation- when as applicable, paralysis per ICU - Rocephin 1GM IV q24 - Markedly elevated biomarkers and PCT (2) Acute respiratory failure with hypoxia: As above - CT of the chest rule out PE when stable - Will treat emperically with therapuetic Lovenox (3) Obesity (BMI 35.0-39.9 without comorbidity): No acute intervention - This will greatly impact our ability to prone and ventilate/oxygenate with his body habitus and chest wall compliance. (4) Hypothyroid: Continue (5) Elevated troponin: Mild elevation in the setting of hypoxia- likely demand Type II - trend troponin (6) SIRS (systemic inflammatory response syndrome): Multifactorial organ dysfunction likely related to COVID however can not fully rule out bacterial infection- NLR 4.5:1 - Blood cultures pending, placed on Rocephin 1GM Qd - Decadron 10 mg x5 days- since he is intubated - Follow biomarkers- Lactate 2.2, CRP 35, PCT 22 - Organ support - MAPS >65 - James for monitoring output - INR 1.2, D-Dimer 6650 (7) AKSHAT (acute kidney injury): ASKHAT stage II- as above organ dysfunction form SIRS/Sepsis/COVID - Baseline 0.79 - Avoid nephrotoxic agents if able, if needed will minimize exposure time as able to - MAPS >65 - Mild hyponatremia and hypochloridemia- may need to lightly replace intravascular volume History of Present Illness Primary Care Provider: Luís Hooper MD 60 YOM with no notes in our system. He is a patient of Luís Mccoy, attempted to records to review. All information in H&P is from EMS report and EMD Physician report. The patient was brought in by EMS after being found down by his niece this morning. Reportedly his SPO2 via EMS was 55, he was able to provide a brief amount of medication history and that he wanted to be full code. The patient was then subsequently intubated in the EMD. Upon my review the patient SPO2 was 84-88% on 14 of PEEP and 100% FiO2, BP 80's/40, and sedated with Propofol 45mcg/kg/min. Patient was placed on Levophed drip for MAPS and notified the ICU Attending. ICU Attending Dr. Beckwith met me at the bedside, where we emergently placed Left subclavian central line and a Right radial arterial line. SPO2 increased to 90-94 with increase in PEEP to 20 as well as MAPS increased to 70 on 0.5mcg/kg/min of Levophed. He was hemodynamically stable and respiratory stable for transport to the ICU. His status is tenuous at this time, we are unable to reach any family with the records we have. Will continue to attempt to find any other information for contact. Appreciate EMD and ICU assistance with this patient. Allergies Allergy/AdvReac Type Severity Reaction Status Date / Time No Known Allergies Allergy Unverified 05/24/16 12:21 Home Medications Medication Instructions Recorded Confirmed Type FUROSEMIDE (LASIX) 40 mg PO BID #0 05/13/16 History LEVOTHYROXINE SODIUM (SYNTHROID) 150 mcg PO QAM #0 05/13/16 History Potassium Chloride (Micro-K Ext 10 meq PO BID #0 05/13/16 History Rel) amoxicillin-pot clavulanate 1 tab PO UD 09/16/20 09/16/20 History furosemide 40 mg PO BID 09/16/20 09/16/20 History levothyroxine 175 mcg PO UD 09/16/20 09/16/20 History potassium chloride 10 meq PO BID 09/16/20 09/16/20 History Past Med/Surg History Family History (Updated 09/16/20 @ 13:31 by LUCY Kasper) Unknown No significant family history Social History Smoking Status: Never smoker Preferred Language: Khmer Communication Ability: Unable Current Living Situation: Alone Feels Safe at Home: Yes Review of Systems Review of Systems: Unable to perform as patient is intubated and sedated. Physical Exam Physical Exam: PHYSICAL EXAM: General: intubated and sedated Head: Normocephalic, atraumatic ENT: PERRLA, mucous membranes dry Neuro: Intubated and sedated with propofol and fentanyl. PEERLA as above, (+) cough and gag, withdrawals to deep pain Chest: Equal rise and fall of the chest, scattered rhonchi, with very little air movement. difficult assessment secondary to body habitus. Cardiac: Regular rate and rhythm, telemetry reviewed, skin warm dry, cap refill >3 seconds, peripheral pulses +2 no murmur, edema vs. body habitus GI: NABS x 4 quadrants, no erythema or bruit :James to gravity Extremities: Poor hygiene with soiled hands and feet, no open areas Skin: Not assessed as priority was airway oxygenation and circulation. WIll need full evaluation in ICU. Results & Data Results & Data ([facility]) Vital Signs (Past 12 Hours) Vital Signs Temp Pulse Resp BP Pulse Ox 09/16/20 12:46 84 23 88 L 09/16/20 12:45 85 23 89/57 L 87 L 09/16/20 12:40 87 24 78/49 L 90 09/16/20 12:35 88 24 77/51 L 90 09/16/20 12:31 87 24 90 09/16/20 12:30 87 24 81/54 L 90 09/16/20 12:29 88 24 81/52 L 91 09/16/20 12:25 87 24 85/53 L 89 L 09/16/20 12:22 87 20 86 L 09/16/20 12:21 88 18 86/58 L 84 L 09/16/20 12:20 89 21 87/61 L 85 L 09/16/20 12:16 92 H 24 82 L 09/16/20 12:15 91 H 25 H 101/58 L 83 L 09/16/20 12:10 92 H 24 107/60 82 L 09/16/20 12:08 23 09/16/20 12:06 38.3 C H 09/16/20 12:05 94 H 23 113/61 88 L 09/16/20 12:01 94 H 23 90 09/16/20 12:00 92 H 23 109/63 90 09/16/20 11:58 93 H 18 116/59 L 91 09/16/20 11:50 96 H 29 H 112/57 L 78 L 09/16/20 11:46 100 H 21 78 L 09/16/20 11:45 102 H 24 121/64 78 L 09/16/20 11:41 101 H 17 78 L 09/16/20 11:40 100 H 15 143/77 H 79 L 09/16/20 11:38 106 H 24 182/101 H 75 L 09/16/20 11:32 105 H 17 173/90 H 64 L 09/16/20 11:31 112 H 26 H 58 L 09/16/20 11:30 104 H 38 H 143/86 H 77 L 09/16/20 11:26 99 H 30 H 135/77 87 L 09/16/20 11:16 97 H 27 H 87 L 09/16/20 11:15 97 H 27 H 130/73 87 L 09/16/20 11:00 100 H 34 H 124/71 83 L 09/16/20 10:56 101 H 32 H 133/74 87 L 09/16/20 10:45 103 H 35 H 90 09/16/20 10:39 104 H 25 H 90 09/16/20 10:34 103 H 35 H 88 L 09/16/20 10:33 102 H 30 H 127/70 89 L 09/16/20 10:28 38.9 C H 111 H 32 H 127/70 56 L Laboratory Results Abnormal lab results 09/16/20 09/16/20 09/16/20 Range/Units 10:27 10:27 10:27 RBC 4.48 L (4.7-6.1) M/uL Hgb 13.3 L (14.0-18.0) g/dL Hct 39.5 L (42-52) % RDW Std Deviation 50.5 H (36.4-46.3) fL RDW Coeff of Royce 15.7 H (11.5-14.5) % Neutrophils # (Manual) 9.79 H (1.4-6.5) K/uL Total Absolute Neuts 9.79 H (1.4-6.5) K/uL Lymphocytes # (Manual) 0.27 L (1.2-3.4) K/uL Total Abs Lymphocytes 0.27 L (1.2-3.4) K/uL Metamyelocytes # (Man) 0.09 H (0-0) K/uL Platelet Estimate Decreased L (Normal) INR 1.2 H (0.9-1.1) D-Dimer 6650 H* (0-500) ug/L FEU VBG pH (7.36-7.41) VBG pCO2 (38-50) mmHg Sodium 131 L (136-145) mmol/L Chloride 96 L (98-107) mmol/L BUN 30 H (7-18) mg/dl BUN/Creatinine Ratio 23.9 H (10-20) Glucose 103 H (70-99) mg/dl Lactate (0.4-2.0) mmol/L Calcium 8.4 L (8.5-10.1) mg/dl AST 204 H (15-37) U/L Troponin I 0.074 H* (0-0.045) ng/ml C-Reactive Protein 35.70 H (0-0.29) mg/dl Total Protein 9.1 H (6.4-8.2) gm/dl Albumin 2.6 L (3.4-5.0) gm/dl Globulin 6.5 H (2.5-4.0) gm/dl Albumin/Globulin Ratio 0.4 L (0.9-2) Procalcitonin (0-0.5) ng/ml SARS-CoV-2 (PCR) (Negative) 09/16/20 09/16/20 09/16/20 Range/Units 10:27 10:27 10:42 RBC (4.7-6.1) M/uL Hgb (14.0-18.0) g/dL Hct (42-52) % RDW Std Deviation (36.4-46.3) fL RDW Coeff of Royce (11.5-14.5) % Neutrophils # (Manual) (1.4-6.5) K/uL Total Absolute Neuts (1.4-6.5) K/uL Lymphocytes # (Manual) (1.2-3.4) K/uL Total Abs Lymphocytes (1.2-3.4) K/uL Metamyelocytes # (Man) (0-0) K/uL Platelet Estimate (Normal) INR (0.9-1.1) D-Dimer (0-500) ug/L FEU VBG pH 7.49 H (7.36-7.41) VBG pCO2 36 L (38-50) mmHg Sodium (136-145) mmol/L Chloride (98-107) mmol/L BUN (7-18) mg/dl BUN/Creatinine Ratio (10-20) Glucose (70-99) mg/dl Lactate 2.2 H* (0.4-2.0) mmol/L Calcium (8.5-10.1) mg/dl AST (15-37) U/L Troponin I (0-0.045) ng/ml C-Reactive Protein (0-0.29) mg/dl Total Protein (6.4-8.2) gm/dl Albumin (3.4-5.0) gm/dl Globulin (2.5-4.0) gm/dl Albumin/Globulin Ratio (0.9-2) Procalcitonin 22.99 H (0-0.5) ng/ml SARS-CoV-2 (PCR) (Negative) 09/16/20 Range/Units 11:05 RBC (4.7-6.1) M/uL Hgb (14.0-18.0) g/dL Hct (42-52) % RDW Std Deviation (36.4-46.3) fL RDW Coeff of Royce (11.5-14.5) % Neutrophils # (Manual) (1.4-6.5) K/uL Total Absolute Neuts (1.4-6.5) K/uL Lymphocytes # (Manual) (1.2-3.4) K/uL Total Abs Lymphocytes (1.2-3.4) K/uL Metamyelocytes # (Man) (0-0) K/uL Platelet Estimate (Normal) INR (0.9-1.1) D-Dimer (0-500) ug/L FEU VBG pH (7.36-7.41) VBG pCO2 (38-50) mmHg Sodium (136-145) mmol/L Chloride (98-107) mmol/L BUN (7-18) mg/dl BUN/Creatinine Ratio (10-20) Glucose (70-99) mg/dl Lactate (0.4-2.0) mmol/L Calcium (8.5-10.1) mg/dl AST (15-37) U/L Troponin I (0-0.045) ng/ml C-Reactive Protein (0-0.29) mg/dl Total Protein (6.4-8.2) gm/dl Albumin (3.4-5.0) gm/dl Globulin (2.5-4.0) gm/dl Albumin/Globulin Ratio (0.9-2) Procalcitonin (0-0.5) ng/ml SARS-CoV-2 (PCR) POSITIVE A* (Negative) Diagnostic Findings XR chest 1V portable CLINICAL HISTORY: intubation COMPARISON STUDY: 09/16/2020 FINDINGS: The cardiac and mediastinal contours remain stable. There are extensive multifocal pulmonary airspace opacities minimally progressive when compared the prior study. There is been interval insertion of an endotracheal tube 45 mm above the fernando.[ IMPRESSION: 1. Aggressive extensive multifocal pulmonary airspace opacities 2. Interval placement of an endotracheal tube 45 mm above the fernando. Medications Administered Fentanyl Citrate (Fentanyl Citrate 100 Mcg/2 Ml Vial) 100 mcg IV NOW PRN PRN Reason: Agitation Stop: 09/30/20 12:08 Last Admin: 09/16/20 12:45 Dose: 100 mcg Documented by: [id number] Propofol (Diprivan) 1,000 mg in 100 mls @ 40.5 mls/hr IV .Q2H29M [facility]; Protocol Stop: 09/19/20 11:14 Last Titration: 09/16/20 12:09 Dose: 45 mcg/kg/min, 40.5 mls/hr Documented by: [id number] Titration: 09/16/20 12:03 Dose: 40 mcg/kg/min, 36 mls/hr Documented by: [id number] Titration: 09/16/20 11:53 Dose: 35 mcg/kg/min, 31.5 mls/hr Documented by: [id number] Titration: 09/16/20 11:46 Dose: 30 mcg/kg/min, 27 mls/hr Documented by: [id number] Titration: 09/16/20 11:40 Dose: 25 mcg/kg/min, 22.5 mls/hr Documented by: [id number] Admin: 09/16/20 11:35 Dose: 20 mcg/kg/min, 18 mls/hr Documented by: [id number] Cosigned by: [id number] Norepinephrine Bitartrate (Levophed/D5w) 8 mg in 508 mls @ 28.575 mls/hr IV .[id number] [facility]; Protocol Stop: 10/16/20 12:35 Last Admin: 09/16/20 12:39 Dose: 0.05 mcg/kg/min, 28.6 mls/hr Documented by: [id number] Cosigned by: [id number] Fentanyl Citrate (Fentanyl Drip) 1,250 mcg in 250 mls @ 5 mls/hr IV .Q50H [facility]; Protocol Stop: 09/30/20 13:14 Last Admin: 09/16/20 13:22 Dose: 25 mcg/hr, 5 mls/hr Documented by: [id number] Cosigned by: [id number] Discontinued Medications Dexamethasone Sodium Phosphate (DexamethasonePf 10 Mg/Ml Vial) 6 mg IV NOW ONE Stop: 09/16/20 11:53 Last Admin: 09/16/20 11:58 Dose: 6 mg Documented by: [id number] Dexamethasone Sodium Phosphate (DexamethasonePf 10 Mg/Ml Vial) 4 mg IV NOW ONE Stop: 09/16/20 12:06 Last Admin: 09/16/20 12:31 Dose: 4 mg Documented by: [id number] Etomidate (Etomidate 2 Mg/Ml 20 Ml Vial) 30 mg IV NOW ONE Stop: 09/16/20 11:06 Last Increment: 09/16/20 11:28 Dose: 25 mg Documented by: [id number] Fentanyl Citrate (Fentanyl Citrate 100 Mcg/2 Ml Vial) 100 mcg IV NOW STA Stop: 09/16/20 11:51 Last Admin: 09/16/20 11:37 Dose: 100 mcg Documented by: [id number] Ceftriaxone Sodium (Rocephin) 2,000 mg in 70 mls @ 140 mls/hr IV NOW STA Stop: 09/16/20 10:57 Last Infusion: 09/16/20 11:34 Dose: 0 mls/hr Documented by: [id number] Admin: 09/16/20 10:39 Dose: 140 mls/hr Documented by: [id number] Acetaminophen (Ofirmev) 1,000 mg in 100 mls @ 400 mls/hr IV NOW STA Stop: 09/16/20 11:19 Last Infusion: 09/16/20 12:20 Dose: 0 mls/hr Documented by: [id number] Admin: 09/16/20 12:03 Dose: 400 mls/hr Documented by: [id number] Midazolam HCl (Midazolam Hcl 5 Mg/Ml 1 Ml Vial) 5 mg IV NOW STA Stop: 09/16/20 11:52 Last Admin: 09/16/20 11:42 Dose: 5 mg Documented by: [id number] Midazolam HCl (Midazolam Hcl 5 Mg/Ml 1 Ml Vial) 5 mg IV NOW STA Stop: 09/16/20 11:52 Last Admin: 09/16/20 11:45 Dose: 5 mg Documented by: [id number] Miscellaneous (Rapid Sequence Induction Bag) Confirm Administered Dose 1 ea .ROUTE .STK-MED ONE Stop: 09/16/20 12:03 Last Admin: 09/16/20 12:04 Dose: 1 ea Documented by: [id number] Miscellaneous (Stat Iv Infusion Titration Per Protocol) 1 ea N/A NOW STA Stop: 09/16/20 12:35 Last Admin: 09/16/20 12:39 Dose: 1 ea Documented by: [id number] Norepinephrine Bitartrate (Norepinephrine/D5w 8 Mg/508 Ml) Confirm Administered Dose 8 mg IV .STK-MED ONE Stop: 09/16/20 12:29 Last Admin: 09/16/20 12:39 Dose: Not Given Documented by: [id number] Succinylcholine Chloride (Succinylcholine Chloride 20 Mg/Ml 10 Ml Vial) 150 mg IV NOW STA Stop: 09/16/20 11:06 Last Admin: 09/16/20 11:28 Dose: 150 mg Documented by: [id number] ECG Additional Comments: Sinus tachycardia Possible Left atrial enlargement Incomplete right bundle branch block Code Status & VTE Plan Code Status CODE: FULL VTE: Therapuetic Lovenox BID VTE Prophylaxis Plan VTE Prophylaxis will be ordered: Yes Critical Care Time Critical Care Time: Yes Total Critical Care Time: 30 I have reviewed films independently, coordinating of care, and critical care procedures. Supervising Physician Co-Signing Physician Notes Attending Attestation: Pt seen/examined, chart reviewed, care plan d/w LUCY Moreno. I agree w/ the poe components of his documentation. 60yo male - critically ill from ARDS/COVID-19 pneumonia with resulting severe acute hypoxic/hypercarbic respiratory failure. Intubated in ER due to severe respiratory failure, depressed mentation, etc. Multiorgan dysfunction including acute kidney injury and shock, likely septic. PMH/PSH/allergies/meds/sochx/famhx - reviewed much of the history, however, was limited due to altered MS at presentation and unable to phone family/friends vitals - BPs normal initially, then low following intubation T 38.9 severe hypoxia w/ sats 50s at presentation exam (done in ICU airborne room) - gen - morbidly obese, proned HEENT - intubated/ETT in place; enteric tube in place heart - RRR, s1 s2 lungs - basilar crackles, air movement poor abd - obese, soft ext - cool but pulses 1-2+ b/l skin - varicose veins on feet/lower legs labs reviewed imaging reviewed A/P: 1. acute hypoxic/hypercarbic resp failure 2nd to severe ARDS/severe COVID-19 pneumonia * vent management per ICU attending ([employer] guideline-based); proning * dexamethasone x 10 days * patient 14 days into illness by report -- defer on remdesivir; defer on plasma * consider tocilizumab * IV abx for possible superimposed bacterial pneumonia given severity of illness, high procal, etc 2. shock - septic? levophed to maintain MAP >65 3. morbid obesity - BMI 48 4. DVT proph - 1mg/kg lovenox BID 5. hypothyroidism - cont synthroid; check TSH while here 6. transaminitis - 2nd to COVID-19 infection; trend 7. hyponatremia 8. severe proteinuria -- 4+; this deserves, at minimum, repeat later this stay; etiology?? appreciate critical care support prognosis guarded Conor Morrison MD PG Care Time/CCT Total # of Minutes Spent Total Time Spent with Patient: Total time spent is greater than 50% in coordination of care (as documented) at patient's floor/unit and/or counseling patient: Critical Care Time: Yes Total Critical Care Time: 30 Coding Level of Care Code None Diagnoses Pneumonia due to COVID-19 virus U07.1; J12.82 Acute respiratory failure with hypoxia J96.01 Obesity (BMI 35.0-39.9 without comorbidity) E66.9 Hypothyroid E03.9 Elevated troponin R77.8 SIRS (systemic inflammatory response syndrome) R65.10 AKSHAT (acute kidney injury) N17.9 CPT Codes Tubes, Drains, and Vasc Access - Tubes, Drains, and Vasc Access: [id number] Insertion Catheter, Artery ([id number]) Aterial Pressure Waveform Analysis - Arterial Pressure Waveform: [id number] Arterial Pressure Waveform Analysis ([id number]) Additional Codes Critical Care Time - Critical Care Time: Yes ([id number]) Time Spent (min) 30
[2020-09-16 14:23] LABS: Appearance Urine Cloudy (Clear); Blood Urine 3+ (Negative); Color Urine Dark Yellow; Epithelial Cell Urine Auto >30 /lpf (0-5); Glucose Urine UA Negative (Negative); Ketones Urine Trace (Negative); Leukocyte Esterase Urine Trace (Negative); Nitrite Urine Negative (Negative); Protein Urine 4+ (Negative); RBC Urine Automated 0-4 /hpf (0-4); Specific Gravity Urine 1.035 (1.000-1.030); Urobilinogen Urine Negative (Negative); pH Urine 5.5 (4.5-7.5)
[2020-09-16 14:24] LABS: Bilirubin Urine 1+ (Negative)
--- NOTE | 2020-09-16 14:32 | Procedure Note ---
Procedure Note Date of Service September 16, 2020 Procedure date: Noted above Procedure: Central venous access Pre-procedure indication: Need for vasoactive medication administration Post-procedure Diagnosis: same as above Prior to Procedure: Informed Consent: Emergent consent implied. Attending Staff: Kevon Beckwith DO Resident/APC: Loly Skin Prep: Chlorhexidine Anesthesia: 4 mL 1% lidocaine without epinephrine The identity of the patient was confirmed and a bedside time out was performed. Description of Procedure: After sterile prep and sterile drape utilizing standard sterile technique the superficial skin of the left subclavian area was anesthetized. The target vessel was identified and entered with an 18-gauge needle. Dark venous blood return was noted. A guidewire was inserted through the needle and into the vessel. The needle was withdrawn and a skin maxwell was made. A tissue dilator was advanced via Seldinger technique and removed. A triple lumen catheter was inserted via Seldinger technique and the guidewire removed. All ports naveen and flushed easily. A Biopatch was placed, and the catheter was secured via silk suture. A sterile dressing was then applied. Complications: None Estimated blood loss: Trace Patient tolerated the procedure well. Coding CPT Codes Tubes, Drains, and Vasc Access - Tubes, Drains, and Vasc Access: [id number] Insertion Of Non-tunneled Catheter Age 7 Yrs> ([id number]) [facility] [place] Procedure Codes (Charges) Tubes, Drains, and Vasc Access Procedure 1: Tubes, Drains, and Vasc Access: [id number] Insertion Of Non-tunneled Catheter Age 7 Yrs>
[2020-09-16 14:36] LABS: Amorphous Sediment Urine Present (None Prsent); Bacteria Urine Automated 1+ (Negative)
--- NOTE | 2020-09-16 14:42 | Critical Care Progress Note ---
Date of Service September 16, 2020 Assessment & Plan (1) Acute respiratory failure with hypoxia: Reason Critically Ill: 60-year-old male with acute hypoxic respiratory failure and febrile illness. PLAN: Neuro: Sedation with Versed and fentanyl -CT head Resp: Acute hypoxic respiratory failure COVID-19 pneumonia -Continue steroids -Outside of window for Tocilizumab as he was reportedly having symptoms for 2 weeks per family -High PEEP low FiO2 table -Pronation therapy CV: Elevated troponin -Trend Fluids/Renal: Acute kidney injury -Gentle hydration Proteinuria -Follow-up as outpatient Bacteriuria -Culture pending Lactic acidosis -Minimal elevation continue to trend ID: Ceftriaxone -Community-acquired pneumonia coverage GI/Nutrition: Trickle tube feeds Elevated AST Heme: Elevated D-dimer -Therapeutic Lovenox DVT prophylaxis: Therapeutic Lovenox Endocrine: ICU hyperglycemia protocol Hypothyroidism -Restart home Synthroid Vascular access: Left subclavian triple-lumen placed 09/16, right radial arterial line placed 09/16 Code Status: Full code Disposition: ICU Present on Admission?: Yes (2) Pneumonia due to COVID-19 virus: (3) AKSHAT (acute kidney injury): (4) SIRS (systemic inflammatory response syndrome): (5) Obesity (BMI 35.0-39.9 without comorbidity): (6) Elevated troponin: (7) Hypothyroid: Admission and Anticipated Discharge Date Admission Date: September 16, 2020 Supervising Physician Co-Signing Physician Notes I have personally spent 100 minutes of critical care time in the direct management of this patient. This is a life/limb threatening event. This includes time spent evaluating patient, direct bedside care, chart review, placing orders, interpretation of diagnostic studies, discussion with consultants, patient, and/or family members regarding treatment decisions, as well as other required patient management activities. This time is exclusive of all separately billable procedures, and teaching time and separate from and in addition to any other critical care service time. Subjective History is largely obtained from healthcare providers and notes, 60-year-old male who presents after being found down with low oxygen saturations in his home by family. He was intubated upon arrival in the emergency department. He was discovered to have COVID-19 pneumonia. Review of Systems Review of Systems: Unobtainable due to endotracheal tube and Unobtainable due to reduced consciousness Physical Exam Physical Exam: General: Sedated. nontoxic. Skin: Warm, dry, Head: Atraumatic Ears, nose, mouth and throat: Obscured by endotracheal tube Cardiovascular: Normal peripheral perfusion Respiratory: Ventilator settings removed Gastrointestinal: Non distended, obese Musculoskeletal: No deformity Results & Data Results & Data ([facility]) Vital Signs (Past 12 Hours) Vital Signs Temp Pulse Resp BP Pulse Ox 09/16/20 14:05 90 17 123/79 94 09/16/20 14:01 90 18 126/78 94 09/16/20 14:00 90 19 94 09/16/20 13:55 91 H 20 142/90 H 93 09/16/20 13:50 90 18 136/87 93 09/16/20 13:46 90 21 93 09/16/20 13:45 90 18 142/86 H 93 09/16/20 13:40 90 18 135/82 92 09/16/20 13:36 90 18 89 L 09/16/20 13:35 89 19 145/84 H 89 L 09/16/20 13:31 91 H 16 89 L 09/16/20 13:30 91 H 18 135/86 89 L 09/16/20 13:26 91 H 18 89 L 09/16/20 13:25 90 16 136/85 89 L 09/16/20 13:20 91 H 21 137/85 89 L 09/16/20 13:16 91 H 21 88 L 09/16/20 13:15 91 H 18 129/85 88 L 09/16/20 13:10 90 18 139/85 87 L 09/16/20 13:01 91 H 17 86 L 09/16/20 13:00 92 H 18 114/67 86 L 09/16/20 12:55 91 H 21 112/68 86 L 09/16/20 12:50 90 18 97/65 L 86 L 09/16/20 12:46 84 23 88 L 09/16/20 12:45 85 23 89/57 L 87 L 09/16/20 12:40 87 24 78/49 L 90 09/16/20 12:35 88 24 77/51 L 90 09/16/20 12:31 87 24 90 09/16/20 12:30 87 24 81/54 L 90 09/16/20 12:29 88 24 81/52 L 91 09/16/20 12:25 87 24 85/53 L 89 L 09/16/20 12:22 87 20 86 L 09/16/20 12:21 88 18 86/58 L 84 L 09/16/20 12:20 89 21 87/61 L 85 L 09/16/20 12:16 92 H 24 82 L 09/16/20 12:15 91 H 25 H 101/58 L 83 L 09/16/20 12:10 92 H 24 107/60 82 L 09/16/20 12:08 23 09/16/20 12:06 38.3 C H 09/16/20 12:05 94 H 23 113/61 88 L 09/16/20 12:01 94 H 23 90 09/16/20 12:00 92 H 23 109/63 90 09/16/20 11:58 93 H 18 116/59 L 91 09/16/20 11:50 96 H 29 H 112/57 L 78 L 09/16/20 11:46 100 H 21 78 L 09/16/20 11:45 102 H 24 121/64 78 L 09/16/20 11:41 101 H 17 78 L 09/16/20 11:40 100 H 15 143/77 H 79 L 09/16/20 11:38 106 H 24 182/101 H 75 L 09/16/20 11:32 105 H 17 173/90 H 64 L 09/16/20 11:31 112 H 26 H 58 L 09/16/20 11:30 104 H 38 H 143/86 H 77 L 09/16/20 11:26 99 H 30 H 135/77 87 L 09/16/20 11:16 97 H 27 H 87 L 09/16/20 11:15 97 H 27 H 130/73 87 L 09/16/20 11:00 100 H 34 H 124/71 83 L 09/16/20 10:56 101 H 32 H 133/74 87 L 09/16/20 10:45 103 H 35 H 90 09/16/20 10:39 104 H 25 H 90 09/16/20 10:34 103 H 35 H 88 L 09/16/20 10:33 102 H 30 H 127/70 89 L 09/16/20 10:28 38.9 C H 111 H 32 H 127/70 56 L Laboratory Results 09/16/20 09/16/20 09/16/20 Range/Units 13:20 11:05 11:05 WBC (4.8-10.8) K/uL RBC (4.7-6.1) M/uL Hgb (14.0-18.0) g/dL Hct (42-52) % MCV (80-100) fL MCH (25-34) pg MCHC (32-36) g/dL RDW Std Deviation (36.4-46.3) fL RDW Coeff of Royce (11.5-14.5) % Plt Count (130-400) K/uL Neutrophils % (Manual) % Lymphocytes % (Manual) % Monocytes % (Manual) % Metamyelocytes % (Man) % Neutrophils # (Manual) (1.4-6.5) K/uL Total Absolute Neuts (1.4-6.5) K/uL Lymphocytes # (Manual) (1.2-3.4) K/uL Total Abs Lymphocytes (1.2-3.4) K/uL Monocytes # (Manual) (0.11-0.59) K/uL Metamyelocytes # (Man) (0-0) K/uL Platelet Estimate (Normal) Giant Platelets PT (9.0-12.0) Seconds INR (0.9-1.1) D-Dimer (0-500) ug/L FEU VBG pH (7.36-7.41) VBG pCO2 (38-50) mmHg VBG pO2 mmHg VBG HCO3 mmol/L VBG O2 Saturation % VBG Base Excess mEq/L Barometric Pressure mm/Hg Sodium (136-145) mmol/L Potassium (3.5-5.1) mmol/L Chloride (98-107) mmol/L Carbon Dioxide (21-32) mmol/L Anion Gap (3-11) BUN (7-18) mg/dl Creatinine (0.6-1.4) mg/dl Est Cr Clr Drug Dosing ml/min Est GFR ( Amer) Est GFR (Non-Af Amer) BUN/Creatinine Ratio (10-20) Glucose (70-99) mg/dl Lactate (0.4-2.0) mmol/L Calcium (8.5-10.1) mg/dl Total Bilirubin (0.2-1) mg/dl AST (15-37) U/L ALT (12-78) U/L Alkaline Phosphatase (45-117) U/L Troponin I (0-0.045) ng/ml C-Reactive Protein (0-0.29) mg/dl NT-Pro-B Natriuret Pep (0-900) pg/ml Total Protein (6.4-8.2) gm/dl Albumin (3.4-5.0) gm/dl Globulin (2.5-4.0) gm/dl Albumin/Globulin Ratio (0.9-2) Lipase (73-393) U/L Procalcitonin (0-0.5) ng/ml Urine Color Dark Yellow Urine Appearance Cloudy A (Clear) Urine pH 5.5 (4.5-7.5) Ur Specific [place] 1.035 H (1.000-1.030) Urine Protein 4+ H (Negative) Urine Glucose (UA) Negative (Negative) Urine Ketones Trace H (Negative) Urine Blood 3+ H (Negative) Urine Nitrite Negative (Negative) Urine Bilirubin 1+ H (Negative) Urine Urobilinogen Negative (Negative) Ur Leukocyte Esterase Trace H (Negative) Urine WBC (Auto) 10-30 H (0-5) /hpf Urine RBC (Auto) 0-4 (0-4) /hpf U Hyaline Cast (Auto) 1-5 (0-5) /lpf U Epithel Cells (Auto) >30 H (0-5) /lpf Urine Bacteria (Auto) 1+ H (Negative) Ur Renal Epithelial Cell Not Reportable Amorphous Sediment Present A (None Prsent) Granular Casts 5-10 H (0) /lpf COVID-19 Eval Order CovFluRsv at [facility] SARS-CoV-2 (PCR) POSITIVE A* (Negative) Influenza Type A (PCR) Negative (Neg) Influenza Type B (PCR) Negative (Neg) RSV (RT-PCR) Negative (Neg) 09/16/20 09/16/20 09/16/20 Range/Units 10:42 10:27 10:27 WBC (4.8-10.8) K/uL RBC (4.7-6.1) M/uL Hgb (14.0-18.0) g/dL Hct (42-52) % MCV (80-100) fL MCH (25-34) pg MCHC (32-36) g/dL RDW Std Deviation (36.4-46.3) fL RDW Coeff of Royce (11.5-14.5) % Plt Count (130-400) K/uL Neutrophils % (Manual) % Lymphocytes % (Manual) % Monocytes % (Manual) % Metamyelocytes % (Man) % Neutrophils # (Manual) (1.4-6.5) K/uL Total Absolute Neuts (1.4-6.5) K/uL Lymphocytes # (Manual) (1.2-3.4) K/uL Total Abs Lymphocytes (1.2-3.4) K/uL Monocytes # (Manual) (0.11-0.59) K/uL Metamyelocytes # (Man) (0-0) K/uL Platelet Estimate (Normal) Giant Platelets PT (9.0-12.0) Seconds INR (0.9-1.1) D-Dimer (0-500) ug/L FEU VBG pH 7.49 H (7.36-7.41) VBG pCO2 36 L (38-50) mmHg VBG pO2 43 mmHg VBG HCO3 27 mmol/L VBG O2 Saturation 82.0 % VBG Base Excess 3.9 mEq/L Barometric Pressure 732.9 mm/Hg Sodium (136-145) mmol/L Potassium (3.5-5.1) mmol/L Chloride (98-107) mmol/L Carbon Dioxide (21-32) mmol/L Anion Gap (3-11) BUN (7-18) mg/dl Creatinine (0.6-1.4) mg/dl Est Cr Clr Drug Dosing ml/min Est GFR ( Amer) Est GFR (Non-Af Amer) BUN/Creatinine Ratio (10-20) Glucose (70-99) mg/dl Lactate 2.2 H* (0.4-2.0) mmol/L Calcium (8.5-10.1) mg/dl Total Bilirubin (0.2-1) mg/dl AST (15-37) U/L ALT (12-78) U/L Alkaline Phosphatase (45-117) U/L Troponin I (0-0.045) ng/ml C-Reactive Protein (0-0.29) mg/dl NT-Pro-B Natriuret Pep (0-900) pg/ml Total Protein (6.4-8.2) gm/dl Albumin (3.4-5.0) gm/dl Globulin (2.5-4.0) gm/dl Albumin/Globulin Ratio (0.9-2) Lipase (73-393) U/L Procalcitonin 22.99 H (0-0.5) ng/ml Urine Color Urine Appearance (Clear) Urine pH (4.5-7.5) Ur Specific [place] (1.000-1.030) Urine Protein (Negative) Urine Glucose (UA) (Negative) Urine Ketones (Negative) Urine Blood (Negative) Urine Nitrite (Negative) Urine Bilirubin (Negative) Urine Urobilinogen (Negative) Ur Leukocyte Esterase (Negative) Urine WBC (Auto) (0-5) /hpf Urine RBC (Auto) (0-4) /hpf U Hyaline Cast (Auto) (0-5) /lpf U Epithel Cells (Auto) (0-5) /lpf Urine Bacteria (Auto) (Negative) Ur Renal Epithelial Cell Amorphous Sediment (None Prsent) Granular Casts (0) /lpf COVID-19 Eval Order SARS-CoV-2 (PCR) (Negative) Influenza Type A (PCR) (Neg) Influenza Type B (PCR) (Neg) RSV (RT-PCR) (Neg) 09/16/20 09/16/20 09/16/20 Range/Units 10:27 10:27 10:27 WBC 10.33 (4.8-10.8) K/uL RBC 4.48 L (4.7-6.1) M/uL Hgb 13.3 L (14.0-18.0) g/dL Hct 39.5 L (42-52) % MCV 88.2 (80-100) fL MCH 29.7 (25-34) pg MCHC 33.7 (32-36) g/dL RDW Std Deviation 50.5 H (36.4-46.3) fL RDW Coeff of Royce 15.7 H (11.5-14.5) % Plt Count 136 (130-400) K/uL Neutrophils % (Manual) 94.8 % Lymphocytes % (Manual) 2.6 % Monocytes % (Manual) 1.7 % Metamyelocytes % (Man) 0.9 % Neutrophils # (Manual) 9.79 H (1.4-6.5) K/uL Total Absolute Neuts 9.79 H (1.4-6.5) K/uL Lymphocytes # (Manual) 0.27 L (1.2-3.4) K/uL Total Abs Lymphocytes 0.27 L (1.2-3.4) K/uL Monocytes # (Manual) 0.18 (0.11-0.59) K/uL Metamyelocytes # (Man) 0.09 H (0-0) K/uL Platelet Estimate Decreased L (Normal) Giant Platelets 1+ PT 11.6 (9.0-12.0) Seconds INR 1.2 H (0.9-1.1) D-Dimer 6650 H* (0-500) ug/L FEU VBG pH (7.36-7.41) VBG pCO2 (38-50) mmHg VBG pO2 mmHg VBG HCO3 mmol/L VBG O2 Saturation % VBG Base Excess mEq/L Barometric Pressure mm/Hg Sodium 131 L (136-145) mmol/L Potassium 3.7 (3.5-5.1) mmol/L Chloride 96 L (98-107) mmol/L Carbon Dioxide 27 (21-32) mmol/L Anion Gap 8.0 (3-11) BUN 30 H (7-18) mg/dl Creatinine 1.24 (0.6-1.4) mg/dl Est Cr Clr Drug Dosing 94.1 ml/min Est GFR ( Amer) 73.8 Est GFR (Non-Af Amer) 63.7 BUN/Creatinine Ratio 23.9 H (10-20) Glucose 103 H (70-99) mg/dl Lactate (0.4-2.0) mmol/L Calcium 8.4 L (8.5-10.1) mg/dl Total Bilirubin 0.8 (0.2-1) mg/dl AST 204 H (15-37) U/L ALT 64 (12-78) U/L Alkaline Phosphatase 72 (45-117) U/L Troponin I 0.074 H* (0-0.045) ng/ml C-Reactive Protein 35.70 H (0-0.29) mg/dl NT-Pro-B Natriuret Pep 372 (0-900) pg/ml Total Protein 9.1 H (6.4-8.2) gm/dl Albumin 2.6 L (3.4-5.0) gm/dl Globulin 6.5 H (2.5-4.0) gm/dl Albumin/Globulin Ratio 0.4 L (0.9-2) Lipase 187 (73-393) U/L Procalcitonin (0-0.5) ng/ml Urine Color Urine Appearance (Clear) Urine pH (4.5-7.5) Ur Specific [place] (1.000-1.030) Urine Protein (Negative) Urine Glucose (UA) (Negative) Urine Ketones (Negative) Urine Blood (Negative) Urine Nitrite (Negative) Urine Bilirubin (Negative) Urine Urobilinogen (Negative) Ur Leukocyte Esterase (Negative) Urine WBC (Auto) (0-5) /hpf Urine RBC (Auto) (0-4) /hpf U Hyaline Cast (Auto) (0-5) /lpf U Epithel Cells (Auto) (0-5) /lpf Urine Bacteria (Auto) (Negative) Ur Renal Epithelial Cell Amorphous Sediment (None Prsent) Granular Casts (0) /lpf COVID-19 Eval Order SARS-CoV-2 (PCR) (Negative) Influenza Type A (PCR) (Neg) Influenza Type B (PCR) (Neg) RSV (RT-PCR) (Neg) Coding Level of Care Code Critical Care ea addt'l 30 min Diagnoses Acute respiratory failure with hypoxia J96.01 Pneumonia due to COVID-19 virus U07.1; J12.82 AKSHAT (acute kidney injury) N17.9 SIRS (systemic inflammatory response syndrome) R65.10 Obesity (BMI 35.0-39.9 without comorbidity) E66.9 Elevated troponin R77.8 Hypothyroid E03.9 Time Spent (min) 100
--- NOTE | 2020-09-16 14:45 | Electrocardiogram Report ---
Test Reason : Blood Pressure : / mmHG Vent. Rate : 106 BPM Atrial Rate : 106 BPM P-R Int : 134 ms QRS Dur : 096 ms QT Int : 316 ms P-R-T Axes : 040 -27 043 degrees QTc Int : 419 ms Poor data quality, interpretation may be adversely affected Sinus tachycardia Possible Left atrial enlargement Incomplete right bundle branch block Cannot rule out Anterior infarct , age undetermined Abnormal ECG No previous ECGs available Confirmed by Navneet Britt ([id number]) on 09/16/2020 2:45:29 PM Referred By: REFERRED SELF Confirmed By:Navneet Britt
[2020-09-16] MEDS ORDERED: [UNRECOGNIZED DRUG - OTHER] IV STA (14:57)
[2020-09-16] MEDS ORDERED: ICU PROTOCOL FOR HYPERGLYCEMIA PRN (14:59)
[2020-09-16 15:03] LABS: Base Excess ABG 1.3 mEq/L (-9-1.8); HCO3 ABG 31 mmol/L (19-24); Oxygen Saturation ABG 88.4 % (90-95); PCO2 ABG 70 mmHg (35-46); PO2 ABG 63 mmHg (80-95); pH ABG 7.26 (7.35-7.45)
--- NOTE | 2020-09-16 15:04 | XRay Report ---
XR chest 1V portable CLINICAL HISTORY: lines COMPARISON STUDY: 09/16/2020 FINDINGS: The cardiac and mediastinal contours remain stable. There are extensive bilateral pulmonary airspace opacities consistent with a multifocal pneumonia. There has been interval placement of a le ft subclavian central venous catheter. The tip projects over the superior vena cava. There is no pneu mothorax. There is been placement of an enteric tube which passes into the stomach. Endotracheal tube is 34 mm above the fernando.[ IMPRESSION: 1. Interval placement of a left subclavian central venous catheter. The tip projects over the superio r vena cava. There is no pneumothorax 2. Interval placement of an enteric tube which passes into the stomach 3. Endotracheal tube 34 mm above the fernando 4. Bilateral pulmonary airspace opacities consistent with a multifocal pneumonia ACT 112: Negative or not required by law. Electronically signed by: Tyrell Nance M.D. 09/16/2020 3:03 PM
[2020-09-16 15:05] LABS: Allen Test Pos (Pos)
[2020-09-16] MEDS: dexAMETHasone 10 MG in SYRINGE 0 ML IV SCH (15:27)
[2020-09-16] MEDS: CISATRACURIUM BESYLATE 40 MG in 0.9 % SODIUM CHLORIDE 80 ML IV SCH ×2 (15:28→21:17)
[2020-09-16] MEDS ORDERED: OPTIRAY 320 125ml IV ONE (15:51)
--- NOTE | 2020-09-16 16:09 | CT Scan Report ---
CT head/brain wo con CLINICAL HISTORY: 60 years-old Male with ALOC. Acutely altered mental status TECHNIQUE: Multiple axial CT images of the head were obtained without contrast. A dose lowering tech nique was utilized adhering to the principles of ALARA. COMPARISON: CT 02/01/2014 FINDINGS: Endotracheal tube is noted with secretions in the airway. No acute intracranial hemorrhage, midline s hift, intracranial mass, hydrocephalus, territorial ischemia or abnormal extra-axial collection. Invo lutional changes with white matter hypodensities suggestive of chronic microvascular ischemic disease . The calvarium is intact. Mastoid air cells are clear. Metopic suture. Moderate mucosal thickening of the right greater than left ethmoid air cells and maxillary sinuses. Mild mucosal thickening of the frontal and sphenoid sinuses. IMPRESSION: No acute intracranial abnormality. ACT 112: Negative or not required by law. The above report was generated using voice recognition software. It may contain grammatical, syntax o r spelling errors. Electronically signed by: Kofi Ledezma M.D. 09/16/2020 4:07 PM
--- NOTE | 2020-09-16 16:16 | CT Scan Report ---
CT ANGIOGRAPHY OF THE CHEST, PULMONARY EMBOLUS PROTOCOL CLINICAL HISTORY: PE, hypoxia, +dimer, intubated COMPARISON STUDY: Chest radiograph performed earlier today. TECHNIQUE: Following IV administration of 120 mL of Optiray-320, helical axial images of the chest we re obtained utilizing the pulmonary embolus protocol. Maximal intensity projections and sagittal and coronal reformats were viewed on an independent 3D workstation. IV contrast was administered withou t complication. Automated exposure control was utilized for the study. A dose lowering technique wa s utilized adhering to the principles of ALARA. CT DOSE: 1627.49 mGy.cm FINDINGS: No pulmonary emboli are identified although the segmental and subsegmental pulmonary arter ies are suboptimally assessed due to respiratory motion. Mild cardiomegaly is noted. There is no thor acic aortic dissection. There are multiple moderately enlarged mediastinal lymph nodes. Index right p aratracheal lymph node measures 3.1 x 1.6 cm. There are mildly enlarged bilateral hilar lymph nodes. No pneumothorax or pleural effusion is noted. There is dense multifocal consolidation within the lung s. There is no amputation. The central airways are patent. Tip of endotracheal tube is 3.5 cm above t he fernando. A left subclavian central line is in place. Tip of nasogastric tube is at least within the distal body of the stomach. There is probable hepatic steatosis. IMPRESSION: 1. No pulmonary emboli identified although segmental and subsegmental pulmonary arteries suboptimally assessed due to respiratory motion. 2. Satisfactory positioning of lines and tubes. 3. Extensive multifocal consolidation within the lungs suggestive of pneumonia. 4. Enlarged mediastinal and bilateral hilar lymph nodes. These lymph nodes are likely reactive althou gh are larger than typical reactive lymph nodes. Therefore, a follow-up chest CT in 3 months to ensur e resolution is recommended. 5. Hepatic steatosis. ACT 112: Negative or not required by law. Electronically signed by: Suresh Montes M.D. 09/16/2020 4:15 PM
[2020-09-16] MEDS: ENOXAPARIN 150 MG/ML SYR SQ SCH (18:34)
[2020-09-16] MEDS: TUBE FEEDING WATER FLUSH OG SCH ×2 (18:37→21:35)
[2020-09-16 18:42] LABS: iSTAT Arterial Blood Gas HCO3 30 meg/L (19-24); iSTAT Arterial Blood Gas pCO2 70 mmHg (35-46); iSTAT Arterial Blood Gas pH 7.24 (7.35-7.45); iSTAT Arterial Blood Gas pO2 192 mmHg (80-95); iSTAT Carbon Dioxide 32 mmol/L (24-31)
[2020-09-16] MEDS: PEPTAMEN INTENSE VHP 1.0 CAL 1,000 ML BAG OG SCH (19:21)
--- NOTE | 2020-09-16 21:50 | Procedure Note ---
Procedure Note Date of Service September 16, 2020 Procedure: Arterial line Indication: Shock requiring vasopressor, hemodynamic monitoring, frequent ABG Consent: Emergent procedure The patient was intubated and sedated with Fentanyl, Propofol. The right radial artery was palpated with strong pulse an bonnie's test was performed. The right wrist was then prepped with CHG and allowed to dry. The right arm was then draped in sterile fashion. The right radial artery was palpated and a standard 20G arterial catheter was inserted into the right radial artery with one attempt, there was a brisk flash of blood, the guidewire was introduced without resistance and the catheter was advanced over the wire with immediate return of pulsatile blood. The catheter was then sterilely connected to the pressure tubing with adequate waveform and good return of blood. The catheter was then secured with Stat-lock. The patient tolerated the procedure without any immediate complications noted. Blood loss: minimal Complications: None Time spent on procedure longer than expected: No Coding CPT Codes Tubes, Drains, and Vasc Access - Tubes, Drains, and Vasc Access: [id number] Insertion Of Non-tunneled Catheter Age 7 Yrs> ([id number]) [facility] [place] Procedure Codes (Charges) Tubes, Drains, and Vasc Access Procedure 1: Tubes, Drains, and Vasc Access: [id number] Insertion Of Non-tunneled Catheter Age 7 Yrs>
[2020-09-17] MEDS: ENOXAPARIN 150 MG/ML SYR SQ SCH ×2 (01:06→13:33)
[2020-09-17] MEDS: TUBE FEEDING WATER FLUSH OG SCH ×6 (01:07→21:16)
[2020-09-17] MEDS: CISATRACURIUM BESYLATE 40 MG in 0.9 % SODIUM CHLORIDE 80 ML IV SCH ×7 (01:07→21:40)
[2020-09-17] MEDS: propofoL 1,000 MG/100 ML VIAL IV SCH ×13 (01:36→20:25)
[2020-09-17 04:34] LABS: iSTAT Arterial Blood Gas HCO3 30 meg/L (19-24); iSTAT Arterial Blood Gas pCO2 60 mmHg (35-46); iSTAT Arterial Blood Gas pH 7.31 (7.35-7.45); iSTAT Arterial Blood Gas pO2 83 mmHg (80-95); iSTAT Carbon Dioxide 32 mmol/L (24-31); iSTAT Hematocrit 41 % (42-52); iSTAT Hemoglobin 13.9 g/dl (14.0-18.0); iSTAT Potassium 3.6 mmol/L (3.3-5.0); iSTAT Sodium 135 mmol/L (135-144)
[2020-09-17 05:30] LABS: Mean Corpuscular Hgb Conc 33.5 g/dL (32-36)
[2020-09-17 05:41] LABS: Hematocrit (blood only) 37.3 % (42-52); Hemoglobin 12.5 g/dL (14.0-18.0); Mean Corpuscular Hemoglobin 30.2 pg (25-34); Mean Corpuscular Volume 90.1 fL (80-100); RDW Coefficient of Variation 16.1 % (11.5-14.5); RDW Standard Deviation 53.4 fL (36.4-46.3); Red Blood Count 4.14 M/uL (4.7-6.1); White Blood Count 11.31 K/uL (4.8-10.8)
[2020-09-17] MEDS: NOREPINEPHRINE/D5W 8 MG/508 ML BAG IV SCH (06:12)
[2020-09-17 06:21] LABS: Albumin Level 2.3 gm/dl (3.4-5.0); BUN Creatinine Ratio 29.3 (10-20); Bilirubin Direct 0.3 mg/dl (0-0.2); Bilirubin,Total 0.6 mg/dl (0.2-1); Calcium 8.2 mg/dl (8.5-10.1); Creatinine Clr Calc Pharmacy 81.6 ml/min; Est GFR (African American) 62.1; Est GFR (Non-African American) 53.6; Magnesium 2.9 mg/dl (1.8-2.4); Phosphorus 4.5 mg/dl (2.5-4.9); Potassium 3.6 mmol/L (3.5-5.1); Total Protein 8.6 gm/dl (6.4-8.2)
[2020-09-17 06:28] LABS: Platelet Count 133 K/uL (130-400)
[2020-09-17 06:34] LABS: ALC (manual) 0.53 K/uL (1.2-3.4); ANC (manual) 10.35 K/uL (1.4-6.5); Dohle Bodies 1+; Giant Platelets 1+; Lymphocytes # (manual) 0.53 K/uL (1.2-3.4); Lymphocytes % (manual) 4.7 %; Monocytes # (manual) 0.43 K/uL (0.11-0.59); Monocytes % (manual) 3.8 %; Neutrophils # (manual) 10.35 K/uL (1.4-6.5); Neutrophils % (manual) 91.5 %
[2020-09-17] MEDS: MULTI VIT W/MINERALS LIQUID 15 ML UDP NG SCH (08:01)
--- NOTE | 2020-09-17 09:18 | Critical Care Progress Note ---
Date of Service September 17, 2020 Assessment & Plan (1) Acute respiratory failure with hypoxia: Reason Critically Ill: 60-year-old male with acute hypoxic respiratory failure and febrile illness. PLAN: Neuro: Sedation with Versed and fentanyl -CT head: No acute findings Resp: Acute hypoxic respiratory failure COVID-19 pneumonia -Continue steroids -Outside of window for Tocilizumab as he was reportedly having symptoms for 2 weeks per family -High PEEP low FiO2 table -Pronation therapy Enlarged mediastinal lymph nodes -3-month CT follow-up recommended CV: Elevated troponin -Trend Fluids/Renal: Acute kidney injury -Gentle hydration Proteinuria -Follow-up as outpatient Bacteriuria -Culture pending Lactic acidosis -Minimal elevation continue to trend ID: Ceftriaxone -Community-acquired pneumonia coverage GI/Nutrition: Trickle tube feeds Hepatic steatosis Elevated AST -Add H2 for GI prophylaxis Heme: Elevated D-dimer -Therapeutic Lovenox DVT prophylaxis: Therapeutic Lovenox -Check 10 a level Endocrine: ICU hyperglycemia protocol Hypothyroidism -Restart home Synthroid Vascular access: Left subclavian triple-lumen placed 09/16, right radial arterial line placed 09/16 Code Status: Full code Disposition: ICU Patient was discussed on multidisciplinary rounds (2) Pneumonia due to COVID-19 virus: (3) AKSHAT (acute kidney injury): (4) SIRS (systemic inflammatory response syndrome): (5) Obesity (BMI 35.0-39.9 without comorbidity): (6) Elevated troponin: (7) Hypothyroid: (8) Hepatic steatosis: (9) Enlargement of lymph node: Admission and Anticipated Discharge Date Admission Date: September 16, 2020 Supervising Physician Co-Signing Physician Notes I have personally spent 50 minutes of critical care time in the direct management of this patient. This is a life/limb threatening event. This includes time spent evaluating patient, direct bedside care, chart review, placing orders, interpretation of diagnostic studies, discussion with consultants, patient, and/or family members regarding treatment decisions, as well as other required patient management activities. This time is exclusive of all separately billable procedures, and teaching time and separate from and in addition to any other critical care service time. Subjective No overnight events Review of Systems Review of Systems: Unobtainable due to endotracheal tube Physical Exam Physical Exam: General: GCS 3 TP Skin: Warm, dry, Head: Atraumatic Ears, nose, mouth and throat: Obscured by endotracheal tube Cardiovascular: Normal peripheral perfusion Respiratory: Ventilator settings reviewed Gastrointestinal: Non distended, obese Musculoskeletal: No deformity Results & Data Results & Data ([facility]) Vital Signs (Past 12 Hours) Vital Signs Temp Pulse Resp BP Pulse Ox 09/17/20 08:10 77 24 91 09/17/20 06:37 76 106/70 93 09/17/20 05:37 73 101/66 92 09/17/20 04:37 36.8 C 71 92 09/17/20 03:45 67 24 93 09/17/20 03:37 67 104/66 93 09/17/20 02:37 68 103/69 93 09/17/20 01:37 36.6 C 69 103/68 94 09/17/20 00:37 70 94 09/16/20 23:49 70 24 92 09/16/20 23:37 36.0 C L 71 96/64 L 93 09/16/20 22:37 36.3 C L 74 110/75 96 09/16/20 21:37 77 115/76 96 Laboratory Results 09/17/20 09/17/20 09/17/20 Range/Units 05:18 05:18 05:18 WBC 11.31 H (4.8-10.8) K/uL RBC 4.14 L (4.7-6.1) M/uL Hgb 12.5 L (14.0-18.0) g/dL POC Hgb (14.0-18.0) g/dl Hct 37.3 L (42-52) % POC Hct (42-52) % MCV 90.1 (80-100) fL MCH 30.2 (25-34) pg MCHC 33.5 (32-36) g/dL RDW Std Deviation 53.4 H (36.4-46.3) fL RDW Coeff of Royce 16.1 H (11.5-14.5) % Plt Count 133 (130-400) K/uL Neutrophils % (Manual) 91.5 % Lymphocytes % (Manual) 4.7 % Monocytes % (Manual) 3.8 % Metamyelocytes % (Man) % Neutrophils # (Manual) 10.35 H (1.4-6.5) K/uL Total Absolute Neuts 10.35 H (1.4-6.5) K/uL Lymphocytes # (Manual) 0.53 L (1.2-3.4) K/uL Total Abs Lymphocytes 0.53 L (1.2-3.4) K/uL Monocytes # (Manual) 0.43 (0.11-0.59) K/uL Metamyelocytes # (Man) (0-0) K/uL Dohle Bodies 1+ Platelet Estimate (Normal) Giant Platelets 1+ PT (9.0-12.0) Seconds INR (0.9-1.1) D-Dimer (0-500) ug/L FEU POC pH (7.35-7.45) POC pCO2 (35-46) mmHg POC pO2 (80-95) mmHg POC HCO3 (19-24) raquel/L POC Total CO2 (24-31) mmol/L POC Base Excess (-9-1.8) raquel/L ABG pH (7.35-7.45) ABG pCO2 (35-46) mmHg ABG pO2 (80-95) mmHg ABG HCO3 (19-24) mmol/L POC ABG O2 Sat (90-95) % ABG O2 Saturation (90-95) % ABG Base Excess (-9-1.8) mEq/L Reginald Test (Pos) VBG pH (7.36-7.41) VBG pCO2 (38-50) mmHg VBG pO2 mmHg VBG HCO3 mmol/L VBG O2 Saturation % VBG Base Excess mEq/L Barometric Pressure mm/Hg Oxygen Given POC Sodium (135-144) mmol/L Sodium 131 L (136-145) mmol/L POC Potassium (3.3-5.0) mmol/L Potassium 3.6 (3.5-5.1) mmol/L Chloride 96 L (98-107) mmol/L Carbon Dioxide 29 (21-32) mmol/L Anion Gap 6.0 (3-11) BUN 42 H (7-18) mg/dl Creatinine 1.43 H (0.6-1.4) mg/dl Est Cr Clr Drug Dosing 81.6 ml/min Est GFR ( Amer) 62.1 Est GFR (Non-Af Amer) 53.6 BUN/Creatinine Ratio 29.3 H (10-20) Glucose 145 H (70-99) mg/dl POC Glucose (70-99) mg/dl Lactate (0.4-2.0) mmol/L Calcium 8.2 L (8.5-10.1) mg/dl Phosphorus 4.5 (2.5-4.9) mg/dl Magnesium 2.9 H (1.8-2.4) mg/dl Total Bilirubin 0.6 (0.2-1) mg/dl Direct Bilirubin 0.3 H (0-0.2) mg/dl AST 197 H (15-37) U/L ALT 67 (12-78) U/L Alkaline Phosphatase 71 (45-117) U/L Troponin I (0-0.045) ng/ml C-Reactive Protein (0-0.29) mg/dl NT-Pro-B Natriuret Pep (0-900) pg/ml Total Protein 8.6 H (6.4-8.2) gm/dl Albumin 2.3 L (3.4-5.0) gm/dl Globulin (2.5-4.0) gm/dl Albumin/Globulin Ratio (0.9-2) Lipase (73-393) U/L Procalcitonin 33.43 H (0-0.5) ng/ml Urine Color Urine Appearance (Clear) Urine pH (4.5-7.5) Ur Specific Douglas (1.000-1.030) Urine Protein (Negative) Urine Glucose (UA) (Negative) Urine Ketones (Negative) Urine Blood (Negative) Urine Nitrite (Negative) Urine Bilirubin (Negative) Urine Urobilinogen (Negative) Ur Leukocyte Esterase (Negative) Urine WBC (Auto) (0-5) /hpf Urine RBC (Auto) (0-4) /hpf U Hyaline Cast (Auto) (0-5) /lpf U Epithel Cells (Auto) (0-5) /lpf Urine Bacteria (Auto) (Negative) Ur Renal Epithelial Cell Amorphous Sediment (None Prsent) Granular Casts (0) /lpf Nasal Screen MRSA (PCR) (Negative) COVID-19 Eval Order SARS-CoV-2 (PCR) (Negative) Influenza Type A (PCR) (Neg) Influenza Type B (PCR) (Neg) RSV (RT-PCR) (Neg) 09/17/20 09/16/20 09/16/20 Range/Units 04:04 23:23 22:32 WBC (4.8-10.8) K/uL RBC (4.7-6.1) M/uL Hgb (14.0-18.0) g/dL POC Hgb 13.9 L (14.0-18.0) g/dl Hct (42-52) % POC Hct 41 L (42-52) % MCV (80-100) fL MCH (25-34) pg MCHC (32-36) g/dL RDW Std Deviation (36.4-46.3) fL RDW Coeff of Royce (11.5-14.5) % Plt Count (130-400) K/uL Neutrophils % (Manual) % Lymphocytes % (Manual) % Monocytes % (Manual) % Metamyelocytes % (Man) % Neutrophils # (Manual) (1.4-6.5) K/uL Total Absolute Neuts (1.4-6.5) K/uL Lymphocytes # (Manual) (1.2-3.4) K/uL Total Abs Lymphocytes (1.2-3.4) K/uL Monocytes # (Manual) (0.11-0.59) K/uL Metamyelocytes # (Man) (0-0) K/uL Dohle Bodies Platelet Estimate (Normal) Giant Platelets PT (9.0-12.0) Seconds INR (0.9-1.1) D-Dimer (0-500) ug/L FEU POC pH 7.31 L (7.35-7.45) POC pCO2 60 H (35-46) mmHg POC pO2 83 (80-95) mmHg POC HCO3 30 H (19-24) raquel/L POC Total CO2 32 H (24-31) mmol/L POC Base Excess 4.0 H (-9-1.8) raquel/L ABG pH (7.35-7.45) ABG pCO2 (35-46) mmHg ABG pO2 (80-95) mmHg ABG HCO3 (19-24) mmol/L POC ABG O2 Sat 95.0 (90-95) % ABG O2 Saturation (90-95) % ABG Base Excess (-9-1.8) mEq/L Reginald Test (Pos) VBG pH (7.36-7.41) VBG pCO2 (38-50) mmHg VBG pO2 mmHg VBG HCO3 mmol/L VBG O2 Saturation % VBG Base Excess mEq/L Barometric Pressure mm/Hg Oxygen Given POC Sodium 135 (135-144) mmol/L Sodium (136-145) mmol/L POC Potassium 3.6 (3.3-5.0) mmol/L Potassium (3.5-5.1) mmol/L Chloride (98-107) mmol/L Carbon Dioxide (21-32) mmol/L Anion Gap (3-11) BUN (7-18) mg/dl Creatinine (0.6-1.4) mg/dl Est Cr Clr Drug Dosing ml/min Est GFR ( Amer) Est GFR (Non-Af Amer) BUN/Creatinine Ratio (10-20) Glucose (70-99) mg/dl POC Glucose 136 H (70-99) mg/dl Lactate (0.4-2.0) mmol/L Calcium (8.5-10.1) mg/dl Phosphorus (2.5-4.9) mg/dl Magnesium (1.8-2.4) mg/dl Total Bilirubin (0.2-1) mg/dl Direct Bilirubin (0-0.2) mg/dl AST (15-37) U/L ALT (12-78) U/L Alkaline Phosphatase (45-117) U/L Troponin I 0.079 H* (0-0.045) ng/ml C-Reactive Protein (0-0.29) mg/dl NT-Pro-B Natriuret Pep (0-900) pg/ml Total Protein (6.4-8.2) gm/dl Albumin (3.4-5.0) gm/dl Globulin (2.5-4.0) gm/dl Albumin/Globulin Ratio (0.9-2) Lipase (73-393) U/L Procalcitonin (0-0.5) ng/ml Urine Color Urine Appearance (Clear) Urine pH (4.5-7.5) Ur Specific Douglas (1.000-1.030) Urine Protein (Negative) Urine Glucose (UA) (Negative) Urine Ketones (Negative) Urine Blood (Negative) Urine Nitrite (Negative) Urine Bilirubin (Negative) Urine Urobilinogen (Negative) Ur Leukocyte Esterase (Negative) Urine WBC (Auto) (0-5) /hpf Urine RBC (Auto) (0-4) /hpf U Hyaline Cast (Auto) (0-5) /lpf U Epithel Cells (Auto) (0-5) /lpf Urine Bacteria (Auto) (Negative) Ur Renal Epithelial Cell Amorphous Sediment (None Prsent) Granular Casts (0) /lpf Nasal Screen MRSA (PCR) (Negative) COVID-19 Eval Order SARS-CoV-2 (PCR) (Negative) Influenza Type A (PCR) (Neg) Influenza Type B (PCR) (Neg) RSV (RT-PCR) (Neg) 09/16/20 09/16/20 09/16/20 Range/Units 18:27 15:40 14:44 WBC (4.8-10.8) K/uL RBC (4.7-6.1) M/uL Hgb (14.0-18.0) g/dL POC Hgb (14.0-18.0) g/dl Hct (42-52) % POC Hct (42-52) % MCV (80-100) fL MCH (25-34) pg MCHC (32-36) g/dL RDW Std Deviation (36.4-46.3) fL RDW Coeff of Royce (11.5-14.5) % Plt Count (130-400) K/uL Neutrophils % (Manual) % Lymphocytes % (Manual) % Monocytes % (Manual) % Metamyelocytes % (Man) % Neutrophils # (Manual) (1.4-6.5) K/uL Total Absolute Neuts (1.4-6.5) K/uL Lymphocytes # (Manual) (1.2-3.4) K/uL Total Abs Lymphocytes (1.2-3.4) K/uL Monocytes # (Manual) (0.11-0.59) K/uL Metamyelocytes # (Man) (0-0) K/uL Dohle Bodies Platelet Estimate (Normal) Giant Platelets PT (9.0-12.0) Seconds INR (0.9-1.1) D-Dimer (0-500) ug/L FEU POC pH 7.24 L (7.35-7.45) POC pCO2 70 H (35-46) mmHg POC pO2 192 H (80-95) mmHg POC HCO3 30 H (19-24) raquel/L POC Total CO2 32 H (24-31) mmol/L POC Base Excess 3.0 H (-9-1.8) raquel/L ABG pH (7.35-7.45) ABG pCO2 (35-46) mmHg ABG pO2 (80-95) mmHg ABG HCO3 (19-24) mmol/L POC ABG O2 Sat 99.0 H (90-95) % ABG O2 Saturation (90-95) % ABG Base Excess (-9-1.8) mEq/L Reginald Test (Pos) VBG pH (7.36-7.41) VBG pCO2 (38-50) mmHg VBG pO2 mmHg VBG HCO3 mmol/L VBG O2 Saturation % VBG Base Excess mEq/L Barometric Pressure mm/Hg Oxygen Given POC Sodium (135-144) mmol/L Sodium (136-145) mmol/L POC Potassium (3.3-5.0) mmol/L Potassium (3.5-5.1) mmol/L Chloride (98-107) mmol/L Carbon Dioxide (21-32) mmol/L Anion Gap (3-11) BUN (7-18) mg/dl Creatinine (0.6-1.4) mg/dl Est Cr Clr Drug Dosing ml/min Est GFR ( Amer) Est GFR (Non-Af Amer) BUN/Creatinine Ratio (10-20) Glucose (70-99) mg/dl POC Glucose (70-99) mg/dl Lactate (0.4-2.0) mmol/L Calcium (8.5-10.1) mg/dl Phosphorus (2.5-4.9) mg/dl Magnesium (1.8-2.4) mg/dl Total Bilirubin (0.2-1) mg/dl Direct Bilirubin (0-0.2) mg/dl AST (15-37) U/L ALT (12-78) U/L Alkaline Phosphatase (45-117) U/L Troponin I 0.133 H* (0-0.045) ng/ml C-Reactive Protein (0-0.29) mg/dl NT-Pro-B Natriuret Pep (0-900) pg/ml Total Protein (6.4-8.2) gm/dl Albumin (3.4-5.0) gm/dl Globulin (2.5-4.0) gm/dl Albumin/Globulin Ratio (0.9-2) Lipase (73-393) U/L Procalcitonin (0-0.5) ng/ml Urine Color Urine Appearance (Clear) Urine pH (4.5-7.5) Ur Specific Douglas (1.000-1.030) Urine Protein (Negative) Urine Glucose (UA) (Negative) Urine Ketones (Negative) Urine Blood (Negative) Urine Nitrite (Negative) Urine Bilirubin (Negative) Urine Urobilinogen (Negative) Ur Leukocyte Esterase (Negative) Urine WBC (Auto) (0-5) /hpf Urine RBC (Auto) (0-4) /hpf U Hyaline Cast (Auto) (0-5) /lpf U Epithel Cells (Auto) (0-5) /lpf Urine Bacteria (Auto) (Negative) Ur Renal Epithelial Cell Amorphous Sediment (None Prsent) Granular Casts (0) /lpf Nasal Screen MRSA (PCR) Negative (Negative) COVID-19 Eval Order SARS-CoV-2 (PCR) (Negative) Influenza Type A (PCR) (Neg) Influenza Type B (PCR) (Neg) RSV (RT-PCR) (Neg) 09/16/20 09/16/20 09/16/20 Range/Units 14:35 14:35 13:20 WBC (4.8-10.8) K/uL RBC (4.7-6.1) M/uL Hgb (14.0-18.0) g/dL POC Hgb (14.0-18.0) g/dl Hct (42-52) % POC Hct (42-52) % MCV (80-100) fL MCH (25-34) pg MCHC (32-36) g/dL RDW Std Deviation (36.4-46.3) fL RDW Coeff of Royce (11.5-14.5) % Plt Count (130-400) K/uL Neutrophils % (Manual) % Lymphocytes % (Manual) % Monocytes % (Manual) % Metamyelocytes % (Man) % Neutrophils # (Manual) (1.4-6.5) K/uL Total Absolute Neuts (1.4-6.5) K/uL Lymphocytes # (Manual) (1.2-3.4) K/uL Total Abs Lymphocytes (1.2-3.4) K/uL Monocytes # (Manual) (0.11-0.59) K/uL Metamyelocytes # (Man) (0-0) K/uL Dohle Bodies Platelet Estimate (Normal) Giant Platelets PT (9.0-12.0) Seconds INR (0.9-1.1) D-Dimer (0-500) ug/L FEU POC pH (7.35-7.45) POC pCO2 (35-46) mmHg POC pO2 (80-95) mmHg POC HCO3 (19-24) raquel/L POC Total CO2 (24-31) mmol/L POC Base Excess (-9-1.8) raquel/L ABG pH 7.26 L (7.35-7.45) ABG pCO2 70 H (35-46) mmHg ABG pO2 63 L (80-95) mmHg ABG HCO3 31 H (19-24) mmol/L POC ABG O2 Sat (90-95) % ABG O2 Saturation 88.4 L (90-95) % ABG Base Excess 1.3 (-9-1.8) mEq/L Reginald Test Pos (Pos) VBG pH (7.36-7.41) VBG pCO2 (38-50) mmHg VBG pO2 mmHg VBG HCO3 mmol/L VBG O2 Saturation % VBG Base Excess mEq/L Barometric Pressure 730.7 mm/Hg Oxygen Given 100% POC Sodium (135-144) mmol/L Sodium (136-145) mmol/L POC Potassium (3.3-5.0) mmol/L Potassium (3.5-5.1) mmol/L Chloride (98-107) mmol/L Carbon Dioxide (21-32) mmol/L Anion Gap (3-11) BUN (7-18) mg/dl Creatinine (0.6-1.4) mg/dl Est Cr Clr Drug Dosing ml/min Est GFR ( Amer) Est GFR (Non-Af Amer) BUN/Creatinine Ratio (10-20) Glucose (70-99) mg/dl POC Glucose (70-99) mg/dl Lactate 1.6 (0.4-2.0) mmol/L Calcium (8.5-10.1) mg/dl Phosphorus (2.5-4.9) mg/dl Magnesium (1.8-2.4) mg/dl Total Bilirubin (0.2-1) mg/dl Direct Bilirubin (0-0.2) mg/dl AST (15-37) U/L ALT (12-78) U/L Alkaline Phosphatase (45-117) U/L Troponin I (0-0.045) ng/ml C-Reactive Protein (0-0.29) mg/dl NT-Pro-B Natriuret Pep (0-900) pg/ml Total Protein (6.4-8.2) gm/dl Albumin (3.4-5.0) gm/dl Globulin (2.5-4.0) gm/dl Albumin/Globulin Ratio (0.9-2) Lipase (73-393) U/L Procalcitonin (0-0.5) ng/ml Urine Color Dark Yellow Urine Appearance Cloudy A (Clear) Urine pH 5.5 (4.5-7.5) Ur Specific Douglas 1.035 H (1.000-1.030) Urine Protein 4+ H (Negative) Urine Glucose (UA) Negative (Negative) Urine Ketones Trace H (Negative) Urine Blood 3+ H (Negative) Urine Nitrite Negative (Negative) Urine Bilirubin 1+ H (Negative) Urine Urobilinogen Negative (Negative) Ur Leukocyte Esterase Trace H (Negative) Urine WBC (Auto) 10-30 H (0-5) /hpf Urine RBC (Auto) 0-4 (0-4) /hpf U Hyaline Cast (Auto) 1-5 (0-5) /lpf U Epithel Cells (Auto) >30 H (0-5) /lpf Urine Bacteria (Auto) 1+ H (Negative) Ur Renal Epithelial Cell Not Reportable Amorphous Sediment Present A (None Prsent) Granular Casts 5-10 H (0) /lpf Nasal Screen MRSA (PCR) (Negative) COVID-19 Eval Order SARS-CoV-2 (PCR) (Negative) Influenza Type A (PCR) (Neg) Influenza Type B (PCR) (Neg) RSV (RT-PCR) (Neg) 09/16/20 09/16/20 09/16/20 Range/Units 11:05 11:05 10:42 WBC (4.8-10.8) K/uL RBC (4.7-6.1) M/uL Hgb (14.0-18.0) g/dL POC Hgb (14.0-18.0) g/dl Hct (42-52) % POC Hct (42-52) % MCV (80-100) fL MCH (25-34) pg MCHC (32-36) g/dL RDW Std Deviation (36.4-46.3) fL RDW Coeff of Royce (11.5-14.5) % Plt Count (130-400) K/uL Neutrophils % (Manual) % Lymphocytes % (Manual) % Monocytes % (Manual) % Metamyelocytes % (Man) % Neutrophils # (Manual) (1.4-6.5) K/uL Total Absolute Neuts (1.4-6.5) K/uL Lymphocytes # (Manual) (1.2-3.4) K/uL Total Abs Lymphocytes (1.2-3.4) K/uL Monocytes # (Manual) (0.11-0.59) K/uL Metamyelocytes # (Man) (0-0) K/uL Dohle Bodies Platelet Estimate (Normal) Giant Platelets PT (9.0-12.0) Seconds INR (0.9-1.1) D-Dimer (0-500) ug/L FEU POC pH (7.35-7.45) POC pCO2 (35-46) mmHg POC pO2 (80-95) mmHg POC HCO3 (19-24) raquel/L POC Total CO2 (24-31) mmol/L POC Base Excess (-9-1.8) raquel/L ABG pH (7.35-7.45) ABG pCO2 (35-46) mmHg ABG pO2 (80-95) mmHg ABG HCO3 (19-24) mmol/L POC ABG O2 Sat (90-95) % ABG O2 Saturation (90-95) % ABG Base Excess (-9-1.8) mEq/L Reginald Test (Pos) VBG pH 7.49 H (7.36-7.41) VBG pCO2 36 L (38-50) mmHg VBG pO2 43 mmHg VBG HCO3 27 mmol/L VBG O2 Saturation 82.0 % VBG Base Excess 3.9 mEq/L Barometric Pressure 732.9 mm/Hg Oxygen Given POC Sodium (135-144) mmol/L Sodium (136-145) mmol/L POC Potassium (3.3-5.0) mmol/L Potassium (3.5-5.1) mmol/L Chloride (98-107) mmol/L Carbon Dioxide (21-32) mmol/L Anion Gap (3-11) BUN (7-18) mg/dl Creatinine (0.6-1.4) mg/dl Est Cr Clr Drug Dosing ml/min Est GFR ( Amer) Est GFR (Non-Af Amer) BUN/Creatinine Ratio (10-20) Glucose (70-99) mg/dl POC Glucose (70-99) mg/dl Lactate (0.4-2.0) mmol/L Calcium (8.5-10.1) mg/dl Phosphorus (2.5-4.9) mg/dl Magnesium (1.8-2.4) mg/dl Total Bilirubin (0.2-1) mg/dl Direct Bilirubin (0-0.2) mg/dl AST (15-37) U/L ALT (12-78) U/L Alkaline Phosphatase (45-117) U/L Troponin I (0-0.045) ng/ml C-Reactive Protein (0-0.29) mg/dl NT-Pro-B Natriuret Pep (0-900) pg/ml Total Protein (6.4-8.2) gm/dl Albumin (3.4-5.0) gm/dl Globulin (2.5-4.0) gm/dl Albumin/Globulin Ratio (0.9-2) Lipase (73-393) U/L Procalcitonin (0-0.5) ng/ml Urine Color Urine Appearance (Clear) Urine pH (4.5-7.5) Ur Specific Douglas (1.000-1.030) Urine Protein (Negative) Urine Glucose (UA) (Negative) Urine Ketones (Negative) Urine Blood (Negative) Urine Nitrite (Negative) Urine Bilirubin (Negative) Urine Urobilinogen (Negative) Ur Leukocyte Esterase (Negative) Urine WBC (Auto) (0-5) /hpf Urine RBC (Auto) (0-4) /hpf U Hyaline Cast (Auto) (0-5) /lpf U Epithel Cells (Auto) (0-5) /lpf Urine Bacteria (Auto) (Negative) Ur Renal Epithelial Cell Amorphous Sediment (None Prsent) Granular Casts (0) /lpf Nasal Screen MRSA (PCR) (Negative) COVID-19 Eval Order CovFluRsv at [facility] SARS-CoV-2 (PCR) POSITIVE A* (Negative) Influenza Type A (PCR) Negative (Neg) Influenza Type B (PCR) Negative (Neg) RSV (RT-PCR) Negative (Neg) 09/16/20 09/16/20 09/16/20 Range/Units 10:27 10:27 10:27 WBC (4.8-10.8) K/uL RBC (4.7-6.1) M/uL Hgb (14.0-18.0) g/dL POC Hgb (14.0-18.0) g/dl Hct (42-52) % POC Hct (42-52) % MCV (80-100) fL MCH (25-34) pg MCHC (32-36) g/dL RDW Std Deviation (36.4-46.3) fL RDW Coeff of Royce (11.5-14.5) % Plt Count (130-400) K/uL Neutrophils % (Manual) % Lymphocytes % (Manual) % Monocytes % (Manual) % Metamyelocytes % (Man) % Neutrophils # (Manual) (1.4-6.5) K/uL Total Absolute Neuts (1.4-6.5) K/uL Lymphocytes # (Manual) (1.2-3.4) K/uL Total Abs Lymphocytes (1.2-3.4) K/uL Monocytes # (Manual) (0.11-0.59) K/uL Metamyelocytes # (Man) (0-0) K/uL Dohle Bodies Platelet Estimate (Normal) Giant Platelets PT (9.0-12.0) Seconds INR (0.9-1.1) D-Dimer (0-500) ug/L FEU POC pH (7.35-7.45) POC pCO2 (35-46) mmHg POC pO2 (80-95) mmHg POC HCO3 (19-24) raquel/L POC Total CO2 (24-31) mmol/L POC Base Excess (-9-1.8) raquel/L ABG pH (7.35-7.45) ABG pCO2 (35-46) mmHg ABG pO2 (80-95) mmHg ABG HCO3 (19-24) mmol/L POC ABG O2 Sat (90-95) % ABG O2 Saturation (90-95) % ABG Base Excess (-9-1.8) mEq/L Reginald Test (Pos) VBG pH (7.36-7.41) VBG pCO2 (38-50) mmHg VBG pO2 mmHg VBG HCO3 mmol/L VBG O2 Saturation % VBG Base Excess mEq/L Barometric Pressure mm/Hg Oxygen Given POC Sodium (135-144) mmol/L Sodium 131 L (136-145) mmol/L POC Potassium (3.3-5.0) mmol/L Potassium 3.7 (3.5-5.1) mmol/L Chloride 96 L (98-107) mmol/L Carbon Dioxide 27 (21-32) mmol/L Anion Gap 8.0 (3-11) BUN 30 H (7-18) mg/dl Creatinine 1.24 (0.6-1.4) mg/dl Est Cr Clr Drug Dosing 94.1 ml/min Est GFR ( Amer) 73.8 Est GFR (Non-Af Amer) 63.7 BUN/Creatinine Ratio 23.9 H (10-20) Glucose 103 H (70-99) mg/dl POC Glucose (70-99) mg/dl Lactate 2.2 H* (0.4-2.0) mmol/L Calcium 8.4 L (8.5-10.1) mg/dl Phosphorus (2.5-4.9) mg/dl Magnesium (1.8-2.4) mg/dl Total Bilirubin 0.8 (0.2-1) mg/dl Direct Bilirubin (0-0.2) mg/dl AST 204 H (15-37) U/L ALT 64 (12-78) U/L Alkaline Phosphatase 72 (45-117) U/L Troponin I 0.074 H* (0-0.045) ng/ml C-Reactive Protein 35.70 H (0-0.29) mg/dl NT-Pro-B Natriuret Pep 372 (0-900) pg/ml Total Protein 9.1 H (6.4-8.2) gm/dl Albumin 2.6 L (3.4-5.0) gm/dl Globulin 6.5 H (2.5-4.0) gm/dl Albumin/Globulin Ratio 0.4 L (0.9-2) Lipase 187 (73-393) U/L Procalcitonin 22.99 H (0-0.5) ng/ml Urine Color Urine Appearance (Clear) Urine pH (4.5-7.5) Ur Specific Douglas (1.000-1.030) Urine Protein (Negative) Urine Glucose (UA) (Negative) Urine Ketones (Negative) Urine Blood (Negative) Urine Nitrite (Negative) Urine Bilirubin (Negative) Urine Urobilinogen (Negative) Ur Leukocyte Esterase (Negative) Urine WBC (Auto) (0-5) /hpf Urine RBC (Auto) (0-4) /hpf U Hyaline Cast (Auto) (0-5) /lpf U Epithel Cells (Auto) (0-5) /lpf Urine Bacteria (Auto) (Negative) Ur Renal Epithelial Cell Amorphous Sediment (None Prsent) Granular Casts (0) /lpf Nasal Screen MRSA (PCR) (Negative) COVID-19 Eval Order SARS-CoV-2 (PCR) (Negative) Influenza Type A (PCR) (Neg) Influenza Type B (PCR) (Neg) RSV (RT-PCR) (Neg) 09/16/20 09/16/20 Range/Units 10:27 10:27 WBC 10.33 (4.8-10.8) K/uL RBC 4.48 L (4.7-6.1) M/uL Hgb 13.3 L (14.0-18.0) g/dL POC Hgb (14.0-18.0) g/dl Hct 39.5 L (42-52) % POC Hct (42-52) % MCV 88.2 (80-100) fL MCH 29.7 (25-34) pg MCHC 33.7 (32-36) g/dL RDW Std Deviation 50.5 H (36.4-46.3) fL RDW Coeff of Royce 15.7 H (11.5-14.5) % Plt Count 136 (130-400) K/uL Neutrophils % (Manual) 94.8 % Lymphocytes % (Manual) 2.6 % Monocytes % (Manual) 1.7 % Metamyelocytes % (Man) 0.9 % Neutrophils # (Manual) 9.79 H (1.4-6.5) K/uL Total Absolute Neuts 9.79 H (1.4-6.5) K/uL Lymphocytes # (Manual) 0.27 L (1.2-3.4) K/uL Total Abs Lymphocytes 0.27 L (1.2-3.4) K/uL Monocytes # (Manual) 0.18 (0.11-0.59) K/uL Metamyelocytes # (Man) 0.09 H (0-0) K/uL Dohle Bodies Platelet Estimate Decreased L (Normal) Giant Platelets 1+ PT 11.6 (9.0-12.0) Seconds INR 1.2 H (0.9-1.1) D-Dimer 6650 H* (0-500) ug/L FEU POC pH (7.35-7.45) POC pCO2 (35-46) mmHg POC pO2 (80-95) mmHg POC HCO3 (19-24) raquel/L POC Total CO2 (24-31) mmol/L POC Base Excess (-9-1.8) raquel/L ABG pH (7.35-7.45) ABG pCO2 (35-46) mmHg ABG pO2 (80-95) mmHg ABG HCO3 (19-24) mmol/L POC ABG O2 Sat (90-95) % ABG O2 Saturation (90-95) % ABG Base Excess (-9-1.8) mEq/L Reginald Test (Pos) VBG pH (7.36-7.41) VBG pCO2 (38-50) mmHg VBG pO2 mmHg VBG HCO3 mmol/L VBG O2 Saturation % VBG Base Excess mEq/L Barometric Pressure mm/Hg Oxygen Given POC Sodium (135-144) mmol/L Sodium (136-145) mmol/L POC Potassium (3.3-5.0) mmol/L Potassium (3.5-5.1) mmol/L Chloride (98-107) mmol/L Carbon Dioxide (21-32) mmol/L Anion Gap (3-11) BUN (7-18) mg/dl Creatinine (0.6-1.4) mg/dl Est Cr Clr Drug Dosing ml/min Est GFR ( Amer) Est GFR (Non-Af Amer) BUN/Creatinine Ratio (10-20) Glucose (70-99) mg/dl POC Glucose (70-99) mg/dl Lactate (0.4-2.0) mmol/L Calcium (8.5-10.1) mg/dl Phosphorus (2.5-4.9) mg/dl Magnesium (1.8-2.4) mg/dl Total Bilirubin (0.2-1) mg/dl Direct Bilirubin (0-0.2) mg/dl AST (15-37) U/L ALT (12-78) U/L Alkaline Phosphatase (45-117) U/L Troponin I (0-0.045) ng/ml C-Reactive Protein (0-0.29) mg/dl NT-Pro-B Natriuret Pep (0-900) pg/ml Total Protein (6.4-8.2) gm/dl Albumin (3.4-5.0) gm/dl Globulin (2.5-4.0) gm/dl Albumin/Globulin Ratio (0.9-2) Lipase (73-393) U/L Procalcitonin (0-0.5) ng/ml Urine Color Urine Appearance (Clear) Urine pH (4.5-7.5) Ur Specific Douglas (1.000-1.030) Urine Protein (Negative) Urine Glucose (UA) (Negative) Urine Ketones (Negative) Urine Blood (Negative) Urine Nitrite (Negative) Urine Bilirubin (Negative) Urine Urobilinogen (Negative) Ur Leukocyte Esterase (Negative) Urine WBC (Auto) (0-5) /hpf Urine RBC (Auto) (0-4) /hpf U Hyaline Cast (Auto) (0-5) /lpf U Epithel Cells (Auto) (0-5) /lpf Urine Bacteria (Auto) (Negative) Ur Renal Epithelial Cell Amorphous Sediment (None Prsent) Granular Casts (0) /lpf Nasal Screen MRSA (PCR) (Negative) COVID-19 Eval Order SARS-CoV-2 (PCR) (Negative) Influenza Type A (PCR) (Neg) Influenza Type B (PCR) (Neg) RSV (RT-PCR) (Neg) Coding Level of Care Code Critical Care 1st 30-74 mins Diagnoses Acute respiratory failure with hypoxia J96.01 Pneumonia due to COVID-19 virus U07.1; J12.82 AKSHAT (acute kidney injury) N17.9 SIRS (systemic inflammatory response syndrome) R65.10 Obesity (BMI 35.0-39.9 without comorbidity) E66.9 Elevated troponin R77.8 Hypothyroid E03.9 Hepatic steatosis K76.0 Enlargement of lymph node R59.9
[2020-09-17] MEDS: dexAMETHasone 10 MG in SYRINGE 0 ML IV SCH (10:57)
--- NOTE | 2020-09-17 12:10 | XRay Report ---
XR chest 1V portable CLINICAL HISTORY: Respiratory failure COMPARISON STUDY: 09/16/2020 FINDINGS: There is an endotracheal tube 43 mm above the fernando. There is a left subclavian central ve nous catheter unchanged in position. There is no pneumothorax. There is an enteric tube which passes into the stomach. There are extensive bilateral pulmonary airspace opacities.[ IMPRESSION: No significant change. Persistent extensive bilateral pulmonary airspace opacities ACT 112: Negative or not required by law. Electronically signed by: Tyrell Nance M.D. 09/17/2020 12:08 PM
[2020-09-17] MEDS: FAMOTIDINE 20 MG in SYRINGE 3 ML IV SCH ×2 (12:47→21:15)
[2020-09-17] MEDS: DOCUSATE SODIUM SYRUP 100 MG/10 ML UDC PO SCH ×2 (12:47→21:15)
[2020-09-17] MEDS: cefTRIAXone SODIUM 2,000 MG in DEXTROSE 5% 50 ML IV SCH (16:31)
[2020-09-17] MEDS: PEPTAMEN INTENSE VHP 1.0 CAL 1,000 ML BAG OG SCH (16:33)
[2020-09-17] MEDS ORDERED: ACETAMINOPHEN 1,000 MG/100 ML VIAL IV PRN (20:22)
[2020-09-17] MEDS ORDERED: ACETAMINOPHEN 1000 MG/100 ML IV IV ONE (20:23)
--- NOTE | 2020-09-17 21:06 | Hospitalist Progress Note ---
Date of Service September 17, 2020 Assessment & Plan (1) Pneumonia due to COVID-19 virus: Severe COVID - unknown day but reportedly between 12-14 days of illness. - Decadron 10mg IV for 5 days - on ventillation: high peep. - Supportive Care, ARDSnet ventilation per ICU - Sedate to RASS -2 to -4 for compliance and oxygenation- when as applicable, paralysis per ICU - Rocephin 1GM IV q24 - Markedly elevated biomarkers and PCT (2) Acute respiratory failure with hypoxia: As above - CT of the chest rule out PE when stable - Will treat emperically with therapuetic Lovenox (3) Obesity (BMI 35.0-39.9 without comorbidity): No acute intervention - This will greatly impact our ability to prone and ventilate/oxygenate with his body habitus and chest wall compliance. (4) Hypothyroid: Continue levothyroxine (5) Elevated troponin: Mild elevation in the setting of hypoxia- likely demand Type II (6) SIRS (systemic inflammatory response syndrome): Multifactorial organ dysfunction likely related to COVID however can not fully rule out bacterial infection- NLR 4.5:1 - Blood cultures pending, placed on Rocephin 1GM Qd - Decadron 10 mg x5 days- since he is intubated - Follow biomarkers- Lactate 2.2, CRP 35, PCT 22 - Organ support - MAPS >65 - James for monitoring output - INR 1.2, D-Dimer 6650 (7) AKSHAT (acute kidney injury): AKSHAT stage II- as above organ dysfunction form SIRS/Sepsis/COVID - Baseline 0.79 - Avoid nephrotoxic agents if able, if needed will minimize exposure time as able to - MAPS >65 - Mild hyponatremia and hypochloridemia- may need to lightly replace intravascular volume Admission and Anticipated Discharge Date Admission Date: September 16, 2020 Subjective Patient is intubated Review of Systems Review of Systems: All systems reviewed & are unremarkable except as noted in HPI & below Physical Exam Physical Exam: General: intubated and sedated Head: Normocephalic, atraumatic ENT: PERRLA, mucous membranes dry Neuro: Intubated and sedated with propofol and fentanyl. PEERLA as above, (+) cough and gag, withdrawals to deep pain Chest: Equal rise and fall of the chest, scattered rhonchi, with very little air movement. difficult assessment secondary to body habitus. Cardiac: Regular rate and rhythm, telemetry reviewed, skin warm dry, cap refill >3 seconds, peripheral pulses +2 no murmur, edema vs. body habitus GI: NABS x 4 quadrants, no erythema or bruit :James to gravity Extremities: Poor hygiene with soiled hands and feet, no open areas Skin: Not assessed as priority was airway oxygenation and circulation. WIll need full evaluation in ICU. Results & Data Results & Data ([facility]) Vital Signs (Past 12 Hours) Vital Signs Pulse Resp BP Pulse Ox 09/17/20 19:37 82 120/70 89 L 09/17/20 18:37 81 112/68 90 09/17/20 18:00 80 90 09/17/20 17:37 79 111/68 90 09/17/20 17:00 79 89 L 09/17/20 16:37 78 109/65 88 L 09/17/20 16:00 77 89 L 09/17/20 15:37 77 111/68 93 09/17/20 15:35 80 24 92 09/17/20 15:00 79 91 09/17/20 14:53 79 09/17/20 14:37 76 106/66 91 09/17/20 14:00 75 24 92 09/17/20 13:37 75 106/64 92 09/17/20 13:00 74 90 09/17/20 12:37 73 101/59 L 88 L 09/17/20 12:00 77 88 L 09/17/20 11:37 79 111/66 89 L 09/17/20 11:26 78 24 90 09/17/20 11:00 77 88 L 09/17/20 10:37 76 107/67 88 L 09/17/20 10:00 75 88 L 09/17/20 09:37 72 99/61 L 87 L PG Care Time/CCT Total # of Minutes Spent Total Time Spent with Patient: Total time spent is greater than 50% in coordination of care (as documented) at patient's floor/unit and/or counseling patient: Coding Level of Care Code 03452 Subseq Hosp Care Lvl 3 Diagnoses Pneumonia due to COVID-19 virus U07.1; J12.82 Acute respiratory failure with hypoxia J96.01 Obesity (BMI 35.0-39.9 without comorbidity) E66.9 Hypothyroid E03.9 Elevated troponin R77.8 SIRS (systemic inflammatory response syndrome) R65.10 AKSHAT (acute kidney injury) N17.9 Time Spent (min) 35
--- NOTE | 2020-09-17 22:26 | Procedure Note ---
Procedure Note Date of Service September 17, 2020 PRONE Coding
[2020-09-18] MEDS: propofoL 1,000 MG/100 ML VIAL IV SCH ×9 (00:04→23:19)
[2020-09-18] MEDS: ENOXAPARIN 150 MG/ML SYR SQ SCH (00:05)
--- NOTE | 2020-09-18 01:19 | Communication Note ---
Date of Service: September 17, 2020 Procedure: Pronation Maneuver Attending: Dr. Beckwith APC: Bharat Harp PA-C Indication: Requiring lung recruitment intervention in the setting of advanced A RDS with poor lung compliance and oxygenation on standard ventilator settings. Patient requiring pronation in the setting of advanced ARDS per imaging, ventilator requirements, and calculated P:F ratio. Appropriate staff was assembled including myself, Respiratory Therapy, and Nursing Staff. A time-out was completed verifying correct patient, time from recent pronation/supination, current ventilator settings, review of any prior issues during pronation/supination maneuvers. Patient was fully undressed as to be able to view all current IV sites, central venous access sites, arterial lines, en dotracheal tube, James catheter, etc. After properly identifying/securing all lines, tubes, etc., the patient was ``papoosed using flat sheets. On my count, the patient was slid to the edge of the bed. After reevaluating all lines, tubes, etc., the patient was then placed on their side allowing for RT to maintain control of ET tube and ready for completion of Pronation maneuver. Final check of all lines, tubes, etc. was completed by myself and nursing staff. Blood pressure, heart rhythm, and oxygen saturations were monitored for several minutes s/p maneuver. Discussion was held with patients RN and RT regarding ongoing management. Patient tolerated maneuver well. No immediate complications were noted. TIME PRONE: 2044 I have personally spent 20 minutes of critical care time in the direct management of this patient. This is a life/limb threatening event. This includes time spent evaluating patient, direct bedside care, chart review, placing orders, interpretation of diagnostic studies, discussion with consultants, patient, and family members, as well as other required patient management activities. This time is exclusive of all separately billable procedures, and teaching time and separate from and in addition to any other critical care service time. Coding Level of Care Code Critical Care demetrius addt'l 30 min Time Spent (min) 20
[2020-09-18] MEDS: TUBE FEEDING WATER FLUSH OG SCH ×6 (02:20→23:43)
[2020-09-18] MEDS: CISATRACURIUM BESYLATE 40 MG in 0.9 % SODIUM CHLORIDE 80 ML IV SCH ×6 (04:07→19:45)
[2020-09-18] MEDS: LEVOTHYROXINE SODIUM 150 MCG TABLET PO SCH (04:07)
[2020-09-18 04:28] LABS: iSTAT Arterial Blood Gas HCO3 32 meg/L (19-24); iSTAT Arterial Blood Gas pCO2 67 mmHg (35-46); iSTAT Arterial Blood Gas pH 7.28 (7.35-7.45); iSTAT Arterial Blood Gas pO2 58 mmHg (80-95); iSTAT Carbon Dioxide 34 mmol/L (24-31); iSTAT Hematocrit 41 % (42-52); iSTAT Hemoglobin 13.9 g/dl (14.0-18.0); iSTAT Potassium 4.2 mmol/L (3.3-5.0); iSTAT Sodium 135 mmol/L (135-144)
[2020-09-18 06:40] LABS: Hematocrit (blood only) 38.1 % (42-52); Hemoglobin 12.5 g/dL (14.0-18.0); Mean Corpuscular Hemoglobin 30.1 pg (25-34); Mean Corpuscular Hgb Conc 32.8 g/dL (32-36); Mean Corpuscular Volume 91.8 fL (80-100); Mean Platelet Volume 12.8 fL (7.4-10.4); Nucleated RBC # (auto) 0.05 K/uL (0-0); Nucleated RBC % (auto) 0.2 %; Platelet Count 213 K/uL (130-400); RDW Coefficient of Variation 16.4 % (11.5-14.5); RDW Standard Deviation 54.9 fL (36.4-46.3); Red Blood Count 4.15 M/uL (4.7-6.1); White Blood Count 20.49 K/uL (4.8-10.8)
[2020-09-18 06:58] LABS: Albumin Level 2.1 gm/dl (3.4-5.0); BUN Creatinine Ratio 34.7 (10-20); Bilirubin Direct 0.3 mg/dl (0-0.2); Bilirubin,Total 0.5 mg/dl (0.2-1); Calcium 8.1 mg/dl (8.5-10.1); Creatinine Clr Calc Pharmacy 68.6 ml/min; Est GFR (African American) 50.4; Est GFR (Non-African American) 43.5; Magnesium 3.1 mg/dl (1.8-2.4); Phosphorus 4.3 mg/dl (2.5-4.9); Potassium 4.2 mmol/L (3.5-5.1); Total Protein 8.6 gm/dl (6.4-8.2)
[2020-09-18] MEDS: MULTI VIT W/MINERALS LIQUID 15 ML UDP NG SCH (08:21)
[2020-09-18] MEDS: FAMOTIDINE 20 MG in SYRINGE 3 ML IV SCH ×2 (08:21→21:26)
[2020-09-18] MEDS: DOCUSATE SODIUM SYRUP 100 MG/10 ML UDC PO SCH ×2 (08:21→21:26)
[2020-09-18 09:51] LABS: iSTAT Arterial Blood Gas HCO3 32 meg/L (19-24); iSTAT Arterial Blood Gas pCO2 73 mmHg (35-46); iSTAT Arterial Blood Gas pH 7.25 (7.35-7.45); iSTAT Arterial Blood Gas pO2 70 mmHg (80-95); iSTAT Carbon Dioxide 34 mmol/L (24-31); iSTAT Hematocrit 41 % (42-52); iSTAT Hemoglobin 13.9 g/dl (14.0-18.0); iSTAT Potassium 4.2 mmol/L (3.3-5.0); iSTAT Sodium 136 mmol/L (135-144)
[2020-09-18] MEDS ORDERED: FUROSEMIDE 20 MG in SYRINGE 0 ML IV ONE (10:45)
[2020-09-18] MEDS: fentaNYL DRIP 1,250 MCG/250 ML BAG IV SCH ×2 (11:20→15:58)
--- NOTE | 2020-09-18 11:56 | Critical Care Progress Note ---
Date of Service September 18, 2020 Assessment & Plan (1) Acute respiratory failure with hypoxia: Impression: 60-year-old male with acute hypoxic respiratory failure due to COVID 19 PNA and ARDS. Intubated 09/16/20 24 Hour events: Patient continues to undergo intermittent proning. He has been hemodynamically stable but requires high ventilatory pressures. This morning I assessed him and his plateau pressures were in the 40s. We adjusted his tidal volume down to 6 cc/kg ideal body weight and decreased PEEP in an effort to try and improve. We were able to achieve a plateau pressure of around 30-32. Will allow for permissive hypercarbia. Recommendations: Neuro: Continue aggressive sedation with fentanyl Versed and propofol as well as paralytics until the patient's respiratory status improves. Will consider daily sedation breaks once respiratory status improves. Resp: Acute hypoxic respiratory failure secondary to COVID-19 pneumonia. Continue dexamethasone. Vent AC 28/500/20/0.5 Pplat 40. P/F: 140. We will touch with IV Lasix today to try and dry lungs out. Suspect his mediastinal adenopathy is reactive. We will plan on returning to the supine position somewhere between 1 and 2:00 this afternoon and see how he does. CV: Suspect supply demand mismatch resulting in elevated troponin. He is hemodynamically stable. No indication for echocardiogram currently. Lactic acidosis appears clearing. Fluids/Renal: Mild increase in serum creatinine today. We will need to watch judiciously as we try to diurese him. Potential component of ATN. Medications also possible. ID: Empirically placed on Rocephin but cultures are negative. White count has increased to 20,000 although it is unclear if this is related to steroids or not. Continue Rocephin for now but may need to broaden antibiotics especially i n light of his elevated procalcitonin. GI/Nutrition: Continue trophic tube feedings. Steatohepatitis noted. Follow LFTs for now. H2 yuly in place Heme: DVT prophylaxis per ACC P guidelines. Endocrine: ICU hyperglycemia protocol Hypothyroidism -Continue home Synthroid Vascular access: Left subclavian triple-lumen placed 09/16, right radial arterial line placed 09/16 Code Status: Full code Disposition: ICU Patient is critically ill with multiorgan system dysfunction. Overall prognosis is guarded. A total of 57 minutes in critical care time was spent in evaluation management and stabilization of this patient. (2) Pneumonia due to COVID-19 virus: (3) Obesity (BMI 35.0-39.9 without comorbidity): (4) AKSHAT (acute kidney injury): Admission and Anticipated Discharge Date Admission Date: September 16, 2020 Subjective intubated, sedated and paralyzed. Review of Systems Review of Systems: Unobtainable due to endotracheal tube Physical Exam Constitutional: + morbidly obese Patient was examined while he is proned. Neck: trachea midline, no thyromegaly Respiratory: normal respiratory effort, lungs clear to auscultation Cardiovascular: RRR, no murmur, no edema Gastrointestinal (Abdomen): normal bowel sounds, soft, nontender, no hepa tosplenomegaly Musculoskeletal: Extremities: extremities normal to inspection Skin: no rashes, warm and dry Lymphatic: no cervical lymphadenopathy Results & Data Results & Data ([facility]) Vital Signs (Past 12 Hours) Vital Signs Pulse Resp BP Pulse Ox 09/18/20 11:32 97 H 32 H 91 09/18/20 10:28 32 H 09/18/20 07:50 91 H 27 H 91 09/18/20 04:13 83 125/67 88 L 09/18/20 04:10 80 24 89 L 09/18/20 03:43 92 H 124/75 94 09/18/20 03:13 94 H 128/77 94 09/18/20 02:43 93 H 129/76 93 09/18/20 02:13 93 H 131/77 93 09/18/20 01:43 94 H 138/78 94 09/18/20 01:36 98 H 145/83 H 94 09/18/20 01:13 93 H 135/78 94 09/18/20 00:43 88 123/71 93 09/18/20 00:13 86 117/71 92 I/O: +1094 Laboratory Results 09/18/20 06:08 09/18/20 06:08 AB.25/73/70/32 Procal 33 Cultures: no growth to date Diagnostic Findings Chest x-ray from yesterday was reviewed. There are diffuse bilateral pulmonary infiltrates throughout both lung alfonso. Endotracheal tube appears to be in good position. Lung volumes are low. No obvious pneumothorax. Coding Level of Care Code Critical Care 1st 30-74 mins Diagnoses Acute respiratory failure with hypoxia J96.01 Pneumonia due to COVID-19 virus U07.1; J12.82 Obesity (BMI 35.0-39.9 without comorbidity) E66.9 AKSHAT (acute kidney injury) N17.9
[2020-09-18] MEDS: dexAMETHasone 6 MG in SYRINGE 0 ML IV SCH (12:37)
--- NOTE | 2020-09-18 14:51 | XRay Report ---
SINGLE VIEW CHEST CLINICAL HISTORY: Respiratory failure. FINDINGS: 2 AP, portable, upright chest radiographs are compared to study dated 09/17/2020 and correlat ed with chest CT dated 09/16/2020. The examination is degraded by portable technique and patient rotati on. An endotracheal tube, an enteric tube, and a left subclavian central venous catheter are unchan ged in position. The heart is enlarged. Multifocal patchy airspace consolidation throughout both lung s has not significantly changed from yesterday. No large pleural effusion or pneumothorax is seen. Th e bony thorax is grossly intact. IMPRESSION: 1. Stable lines and tubes. 2. Multifocal airspace consolidation has not significantly changed from yesterday. ACT 112: Negative or not required by law. Electronically signed by: Jesus Louie M.D. 09/18/2020 2:49 PM
[2020-09-18] MEDS: PEPTAMEN INTENSE VHP 1.0 CAL 1,000 ML BAG OG SCH (15:58)
[2020-09-18] MEDS: cefTRIAXone SODIUM 2,000 MG in DEXTROSE 5% 50 ML IV SCH (16:00)
--- NOTE | 2020-09-18 22:17 | Hospitalist Progress Note ---
Date of Service September 18, 2020 Assessment & Plan (1) Pneumonia due to COVID-19 virus: Severe COVID - unknown day but reportedly between 12-14 days of illness. -Patient remains intubated. - Decadron 10mg IV for 5 days - on ventillation: high peep. - Supportive Care, ARDSnet ventilation per ICU - Sedate to RASS -2 to -4 for compliance and oxygenation- when as applicable, paralysis per ICU - Rocephin 1GM IV q24 - Markedly elevated biomarkers and PCT (2) Acute respiratory failure with hypoxia: As above - CT of the chest rule out PE when stable - Will treat emperically with therapuetic Lovenox (3) Obesity (BMI 35.0-39.9 without comorbidity): No acute intervention - This will greatly impact our ability to prone and ventilate/oxygenate with his body habitus and chest wall compliance. (4) Hypothyroid: Continue levothyroxine (5) Elevated troponin: Mild elevation in the setting of hypoxia- likely demand Type II (6) SIRS (systemic inflammatory response syndrome): Multifactorial organ dysfunction likely related to COVID however can not fully rule out bacterial infection- NLR 4.5:1 - as above. (7) AKSHAT (acute kidney injury): AKSHAT stage II- as above organ dysfunction form SIRS/Sepsis/COVID - Baseline 0.79 - Avoid nephrotoxic agents if able, if needed will minimize exposure time as able to - MAPS >65 - creatinine is slowly worsening. will monitor. Admission and Anticipated Discharge Date Admission Date: September 16, 2020 Subjective Patient remains intubated. Review of Systems Review of Systems: All systems reviewed & are unremarkable except as noted in HPI & below Physical Exam Physical Exam: General: intubated and sedated Head: Normocephalic, atraumatic ENT: PERRLA, mucous membranes dry Neuro: Intubated and sedated with propofol and fentanyl. PEERLA as above, (+) cough and gag, withdrawals to deep pain Chest: Equal rise and fall of the chest, scattered rhonchi, with very little air movement. difficult assessment secondary to body habitus. Cardiac: Regular rate and rhythm, telemetry reviewed, skin warm dry, cap refill >3 seconds GI: NABS x 4 quadrants, no erythema or bruit :James to gravity Extremities: Poor hygiene with soiled hands and feet, no open areas Results & Data Results & Data ([facility]) Vital Signs (Past 12 Hours) Vital Signs Temp Pulse Resp BP Pulse Ox 09/18/20 20:14 82 33 H 93 09/18/20 18:13 37.5 C 82 113/66 93 09/18/20 18:00 37.5 C 83 93 09/18/20 17:43 37.5 C 82 111/66 93 09/18/20 17:13 37.5 C 82 111/66 93 09/18/20 17:00 37.5 C 83 93 09/18/20 16:43 37.5 C 84 117/70 93 09/18/20 16:13 37.5 C 85 118/68 93 09/18/20 16:00 37.5 C 84 93 09/18/20 15:43 37.5 C 84 115/67 93 09/18/20 15:25 82 32 H 94 09/18/20 15:18 81 09/18/20 15:13 37.6 C H 81 109/63 94 09/18/20 15:00 37.6 C H 81 94 09/18/20 14:44 37.6 C H 80 94 09/18/20 14:43 37.6 C H 81 105/61 94 09/18/20 14:13 37.6 C H 82 107/63 93 09/18/20 14:00 37.7 C H 82 93 09/18/20 13:43 37.7 C H 83 111/61 92 09/18/20 13:14 37.8 C H 84 108/62 92 09/18/20 13:00 99 H 09/18/20 12:43 37.8 C H 96 H 148/76 H 91 09/18/20 12:13 37.8 C H 93 H 138/74 91 09/18/20 12:00 37.8 C H 95 H 91 09/18/20 11:43 37.8 C H 95 H 141/76 H 91 09/18/20 11:32 97 H 32 H 91 09/18/20 11:13 37.8 C H 95 H 139/72 91 09/18/20 11:00 37.8 C H 96 H 91 09/18/20 10:43 37.9 C H 98 H 155/75 H 91 09/18/20 10:28 32 H PG Care Time/CCT Total # of Minutes Spent Total Time Spent with Patient: Total time spent is greater than 50% in coordination of care (as documented) at patient's floor/unit and/or counseling patient: Coding Level of Care Code 19215 Subseq Hosp Care Lvl 2 Diagnoses Pneumonia due to COVID-19 virus U07.1; J12.82 Acute respiratory failure with hypoxia J96.01 Obesity (BMI 35.0-39.9 without comorbidity) E66.9 Hypothyroid E03.9 Elevated troponin R77.8 SIRS (systemic inflammatory response syndrome) R65.10 AKSHAT (acute kidney injury) N17.9 Time Spent (min) 25
[2020-09-19] MEDS: CISATRACURIUM BESYLATE 40 MG in 0.9 % SODIUM CHLORIDE 80 ML IV SCH ×8 (00:40→22:29)
[2020-09-19] MEDS: propofoL 1,000 MG/100 ML VIAL IV SCH ×10 (03:09→21:28)
[2020-09-19] MEDS: TUBE FEEDING WATER FLUSH OG SCH ×4 (03:23→14:32)
[2020-09-19 04:37] LABS: Hematocrit (blood only) 37.1 % (42-52); Hemoglobin 11.8 g/dL (14.0-18.0); Mean Corpuscular Hemoglobin 29.6 pg (25-34); Mean Corpuscular Hgb Conc 31.8 g/dL (32-36); Mean Corpuscular Volume 93.2 fL (80-100); Mean Platelet Volume 11.6 fL (7.4-10.4); Nucleated RBC # (auto) 0.04 K/uL (0-0); Nucleated RBC % (auto) 0.2 %; Platelet Count 272 K/uL (130-400); RDW Coefficient of Variation 16.6 % (11.5-14.5); RDW Standard Deviation 57.2 fL (36.4-46.3); Red Blood Count 3.98 M/uL (4.7-6.1); White Blood Count 17.95 K/uL (4.8-10.8)
[2020-09-19 04:44] LABS: iSTAT Arterial Blood Gas HCO3 32 meg/L (19-24); iSTAT Arterial Blood Gas pCO2 75 mmHg (35-46); iSTAT Arterial Blood Gas pH 7.24 (7.35-7.45); iSTAT Arterial Blood Gas pO2 68 mmHg (80-95); iSTAT Carbon Dioxide 34 mmol/L (24-31)
[2020-09-19 04:55] LABS: Albumin Level 1.9 gm/dl (3.4-5.0); BUN Creatinine Ratio 35.6 (10-20); Bilirubin Direct 0.2 mg/dl (0-0.2); Est GFR (African American) 41.2; Est GFR (Non-African American) 35.5; Magnesium 3.5 mg/dl (1.8-2.4); Potassium 4.3 mmol/L (3.5-5.1)
[2020-09-19 04:58] LABS: Bilirubin,Total 0.4 mg/dl (0.2-1); Phosphorus 5.1 mg/dl (2.5-4.9); Total Protein 8.7 gm/dl (6.4-8.2)
[2020-09-19] MEDS: fentaNYL DRIP 1,250 MCG/250 ML BAG IV SCH ×2 (06:03→21:48)
[2020-09-19 06:14] LABS: iSTAT Arterial Blood Gas HCO3 32 meg/L (19-24); iSTAT Arterial Blood Gas pCO2 66 mmHg (35-46); iSTAT Arterial Blood Gas pO2 75 mmHg (80-95); iSTAT Carbon Dioxide 34 mmol/L (24-31)
[2020-09-19] MEDS: LEVOTHYROXINE SODIUM 150 MCG TABLET PO SCH (06:22)
[2020-09-19 06:24] LABS: ALC (manual) 0.18 K/uL (1.2-3.4); ANC (manual) 16.51 K/uL (1.4-6.5); Lymphocytes # (manual) 0.18 K/uL (1.2-3.4); Metamyelocytes # (manual) 0.36 K/uL (0-0); Monocytes # (manual) 0.54 K/uL (0.11-0.59); Myelocytes # (manual) 0.36 K/uL (0-0); Neutrophils # (manual) 16.51 K/uL (1.4-6.5)
[2020-09-19 07:33] LABS: Metamyelocytes # (manual) 0.82 K/uL (0-0); Neutrophils # (manual) 19.26 K/uL (1.4-6.5)
[2020-09-19 08:19] LABS: ANC (manual) 19.26 K/uL (1.4-6.5)
[2020-09-19] MEDS ORDERED: ENOXAPARIN 0.5 MG/KG SQ SCH (09:00)
[2020-09-19] MEDS ORDERED: ENOXAPARIN 80 MG/0.8 ML SYR SQ SCH (09:00)
[2020-09-19] MEDS: MULTI VIT W/MINERALS LIQUID 15 ML UDP NG SCH (09:07)
[2020-09-19] MEDS: DOCUSATE SODIUM SYRUP 100 MG/10 ML UDC PO SCH ×2 (09:07→20:57)
[2020-09-19] MEDS: FAMOTIDINE 20 MG in SYRINGE 3 ML IV SCH ×2 (10:26→20:57)
--- NOTE | 2020-09-19 13:12 | Critical Care Progress Note ---
Date of Service September 19, 2020 Assessment & Plan (1) Acute respiratory failure with hypoxia: Impression: 60-year-old male with acute hypoxic respiratory failure due to COVID 19 PNA and ARDS. Intubated 09/16/20 24 Hour events: Patient continues to undergo intermittent proning. Mild progress in weaning PEEP overnight. Remains hemodynamically stable. Recommendations: Neuro: Continue aggressive sedation with fentanyl Versed and propofol as well as paralytics until the patient's respiratory status improves. Will consider daily sedation breaks once respiratory status improves. Resp: Acute hypoxic respiratory failure secondary to COVID-19 pneumonia. Continue dexamethasone. Vent AC 32/440/ 14/0.4 Pplat 26. P/F: 187, improved today. Hold additional diuretics for now. Suspect his mediastinal adenopathy is reactive. We will plan on returning to the supine position somewhere between 1 and 2:00 this afternoon and see how he does. CV: Suspect supply demand mismatch resulting in elevated troponin. He is hemodynamically stable. No indication for echocardiogram currently. Lactic acidosis appears clearing. Fluids/Renal: Mild increase in serum creatinine today. Hold additional diuretics for now. Electrolytes and acid-base status are acceptable. ID: Empirically placed on Rocephin but cultures are negative. White count slowly decreasing although it is unclear if this is related to steroids or not. Continue Rocephin for now but may need to broaden antibiotics especially in light of his elevated procalcitonin. GI/Nutrition: Continue trophic tube feedings. Steatohepatitis noted. Follow LFTs for now. H2 yuly in place Heme: DVT prophylaxis per ACCP guidelines. Endocrine: ICU hyperglycemia protocol Hypothyroidism -Continue home Synthroid Vascular access: Left subclavian triple-lumen placed 09/16, right radial arterial line placed 09/16 Code Status: Full code Disposition: ICU Patient is critically ill with multiorgan system dysfunction. Overall prognosis is guarded. A total of 49 minutes in critical care time was spent in evaluation management and stabilization of this patient. (2) Pneumonia due to COVID-19 virus: (3) Obesity (BMI 35.0-39.9 without comorbidity): (4) AKSHAT (acute kidney injury): Admission and Anticipated Discharge Date Admission Date: September 16, 2020 Subjective remains intubated, sedated, paralyzed and proned. Review of Systems Review of Systems: Unobtainable due to endotracheal tube Physical Exam Constitutional: + morbidly obese Neck: trachea midline, no thyromegaly Respiratory: normal respiratory effort, lungs clear to auscultation Cardiovascular: RRR, no murmur, no edema Gastrointestinal (Abdomen): normal bowel sounds, soft, nontender, no hepatosplenomegaly Musculoskeletal: Extremities: extremities normal to inspection Skin: no rashes, warm and dry Lymphatic: no cervical lymphadenopathy Results & Data Results & Data ([facility]) Vital Signs (Past 12 Hours) Vital Signs Temp Pulse Resp BP Pulse Ox 09/19/20 10:45 76 32 H 90 09/19/20 08:00 77 09/19/20 07:36 77 32 H 91 09/19/20 04:30 37.4 C 81 93 09/19/20 04:14 37.4 C 82 134/83 93 09/19/20 04:00 37.4 C 81 93 09/19/20 03:44 37.4 C 82 138/81 92 09/19/20 03:30 37.4 C 82 91 09/19/20 03:26 82 32 H 91 09/19/20 03:14 37.4 C 89 162/95 H 94 09/19/20 03:00 37.4 C 90 94 09/19/20 02:44 37.4 C 89 158/90 H 94 09/19/20 02:30 37.4 C 87 94 09/19/20 02:14 37.4 C 89 168/92 H 94 09/19/20 02:00 37.4 C 91 H 94 09/19/20 01:44 37.4 C 89 160/89 H 94 09/19/20 01:30 37.4 C 89 94 09/19/20 01:14 37.3 C 90 161/97 H 93 Laboratory Results 09/19/20 04:18 09/19/20 04:18 Blood gas today 7.3 / Diagnostic Findings CXR pending patient being supine. Coding Level of Care Code Critical Care 1st 30-74 mins Diagnoses Acute respiratory failure with hypoxia J96.01 Pneumonia due to COVID-19 virus U07.1; J12.82 Obesity (BMI 35.0-39.9 without comorbidity) E66.9 AKSHAT (acute kidney injury) N17.9
[2020-09-19] MEDS: dexAMETHasone 6 MG in SYRINGE 0 ML IV SCH (13:48)
[2020-09-19] MEDS ORDERED: PROPOFOL IV EMULSION 10 MG/ML 100 ML VIAL IV ONE (14:45)
[2020-09-19] MEDS ORDERED: PROPOFOL BOLUS FROM BAG IV PRN (14:48)
[2020-09-19] MEDS ORDERED: STAT IV Infusion **Titration per Protocol STA (14:48)
[2020-09-19] MEDS: cefTRIAXone SODIUM 2,000 MG in DEXTROSE 5% 50 ML IV SCH (16:16)
--- NOTE | 2020-09-19 17:00 | XRay Report ---
XR chest 1V portable HISTORY: Respiratory distress. intubation COMPARISON: Chest 09/18/2020. FINDINGS: Endotracheal tube terminates approximately 5 cm from the fernando. No pneumothorax. No pleura l effusions. Interstitial thickening and near diffuse bilateral airspace opacities persist. The heart remains mildly enlarged. The nasogastric tube terminates below the diaphragm. The tip is not include d on this study. There is a left subclavian Port-A-Cath which terminates in the expected location of the SVC. IMPRESSION: 1. Satisfactory support line placement. 2. No change in the near diffuse bilateral airspace opacities. ACT 112: Negative or not required by law. Electronically signed by: Juve Cantor M.D. 09/19/2020 4:59 PM
--- NOTE | 2020-09-19 22:05 | Hospitalist Progress Note ---
Date of Service September 19, 2020 Assessment & Plan (1) Pneumonia due to COVID-19 virus: Severe COVID - unknown day but reportedly between 12-14 days of illness. -Patient remains intubated. - Decadron 10mg IV for 5 days - Now on Decadron 6mg IV - on ventillation: high peep. - Supportive Care, ARDSnet ventilation per ICU - Sedate to RASS -2 to -4 for compliance and oxygenation- when as applicable, paralysis per ICU - Rocephin 1GM IV q24 - Markedly elevated biomarkers and PCT (2) Acute respiratory failure with hypoxia: As above - CT of the chest rule out PE when stable - Will treat emperically with therapuetic Lovenox (3) Obesity (BMI 35.0-39.9 without comorbidity): No acute intervention - This will greatly impact our ability to prone and ventilate/oxygenate with his body habitus and chest wall compliance. (4) Hypothyroid: Continue levothyroxine (5) Elevated troponin: Mild elevation in the setting of hypoxia- likely demand Type II (6) SIRS (systemic inflammatory response syndrome): Multifactorial organ dysfunction likely related to COVID however can not fully rule out bacterial infection- NLR 4.5:1 - as above. (7) AKSHAT (acute kidney injury): AKSHAT stage II- as above organ dysfunction form SIRS/Sepsis/COVID - Baseline 0.79 - Avoid nephrotoxic agents if able, if needed will minimize exposure time as able to - MAPS >65 - creatinine is slowly worsening. will monitor. Admission and Anticipated Discharge Date Admission Date: September 16, 2020 Subjective 60 yo male remains intubated. Review of Systems Review of Systems: All systems reviewed & are unremarkable except as noted in HPI & below Physical Exam Physical Exam: General: intubated and sedated Head: Normocephalic, atraumatic ENT: PERRLA, mucous membranes dry Neuro: Intubated and sedated with propofol and fentanyl. PEERLA as above, (+) cough and gag, withdrawals to deep pain Chest: Equal rise and fall of the chest, scattered rhonchi, with very little air movement. difficult assessment secondary to body habitus. Cardiac: Regular rate and rhythm, telemetry reviewed, skin warm dry, cap refill >3 seconds GI: NABS x 4 quadrants, no erythema or bruit :James to gravity Extremities: Poor hygiene with soiled hands and feet, no open areas Results & Data Results & Data ([facility]) Vital Signs (Past 12 Hours) Vital Signs Temp Pulse Resp BP Pulse Ox 09/19/20 20:18 66 31 H 90 09/19/20 16:00 79 09/19/20 15:50 32 H 09/19/20 15:02 80 32 H 88 L 09/19/20 14:30 38.2 C H 79 87 L 09/19/20 14:14 38.1 C H 78 148/78 H 87 L 09/19/20 14:00 38.1 C H 79 87 L 09/19/20 13:44 38.1 C H 79 143/81 H 87 L 09/19/20 13:30 38.0 C H 79 88 L 09/19/20 13:14 38.0 C H 78 144/79 H 88 L 09/19/20 13:00 38.0 C H 78 88 L 09/19/20 12:44 37.9 C H 78 139/79 88 L 09/19/20 12:30 37.8 C H 78 88 L 09/19/20 12:14 37.8 C H 79 146/81 H 88 L 09/19/20 12:00 37.8 C H 80 88 L 09/19/20 11:44 37.8 C H 82 150/82 H 88 L 09/19/20 11:30 37.7 C H 78 88 L 09/19/20 11:14 37.7 C H 77 149/80 H 89 L 09/19/20 11:00 37.7 C H 77 89 L 09/19/20 10:45 76 32 H 90 09/19/20 10:44 37.7 C H 78 145/82 H 90 09/19/20 10:30 37.7 C H 78 90 09/19/20 10:14 37.6 C H 77 142/81 H 90 PG Care Time/CCT Total # of Minutes Spent Total Time Spent with Patient: Total time spent is greater than 50% in coordination of care (as documented) at patient's floor/unit and/or counseling patient: Coding Level of Care Code 63839 Subseq Hosp Care Lvl 2 Diagnoses Pneumonia due to COVID-19 virus U07.1; J12.82 Acute respiratory failure with hypoxia J96.01 Obesity (BMI 35.0-39.9 without comorbidity) E66.9 Hypothyroid E03.9 Elevated troponin R77.8 SIRS (systemic inflammatory response syndrome) R65.10 AKSHAT (acute kidney injury) N17.9 Time Spent (min) 25
[2020-09-20] MEDS: propofoL 1,000 MG/100 ML VIAL IV SCH ×10 (00:25→23:37)
[2020-09-20] MEDS: CISATRACURIUM BESYLATE 40 MG in 0.9 % SODIUM CHLORIDE 80 ML IV SCH (02:54)
[2020-09-20 04:13] LABS: iSTAT Arterial Blood Gas HCO3 31 meg/L (19-24); iSTAT Arterial Blood Gas pCO2 60 mmHg (35-46); iSTAT Arterial Blood Gas pH 7.32 (7.35-7.45); iSTAT Arterial Blood Gas pO2 58 mmHg (80-95); iSTAT Carbon Dioxide 33 mmol/L (24-31); iSTAT Hematocrit 38 % (42-52); iSTAT Hemoglobin 12.9 g/dl (14.0-18.0); iSTAT Potassium 4.1 mmol/L (3.3-5.0); iSTAT Sodium 136 mmol/L (135-144)
[2020-09-20 05:15] LABS: Hematocrit (blood only) 35.4 % (42-52); Hemoglobin 11.8 g/dL (14.0-18.0); Mean Corpuscular Hemoglobin 30.2 pg (25-34); Mean Corpuscular Hgb Conc 33.3 g/dL (32-36); Mean Corpuscular Volume 90.5 fL (80-100); Mean Platelet Volume 11.8 fL (7.4-10.4); Nucleated RBC # (auto) 0.09 K/uL (0-0); Nucleated RBC % (auto) 0.5 %; Platelet Count 288 K/uL (130-400); RDW Standard Deviation 56.1 fL (36.4-46.3); Red Blood Count 3.91 M/uL (4.7-6.1); White Blood Count 17.11 K/uL (4.8-10.8)
[2020-09-20] MEDS: LEVOTHYROXINE SODIUM 150 MCG TABLET PO SCH (05:38)
[2020-09-20] MEDS: HEPARIN SOD 5,000 UNIT/0.5 ML VIAL SQ SCH ×3 (05:44→21:04)
[2020-09-20 05:47] LABS: BUN Creatinine Ratio 45.1 (10-20); Creatinine Clr Calc Pharmacy 56.9 ml/min; Est GFR (African American) 40.9; Est GFR (Non-African American) 35.3; Magnesium 3.6 mg/dl (1.8-2.4); Phosphorus 4.1 mg/dl (2.5-4.9); Potassium 4.1 mmol/L (3.5-5.1)
[2020-09-20 06:12] LABS: ALC (manual) 0.15 K/uL (1.2-3.4); ANC (manual) 16.03 K/uL (1.4-6.5); Lymphocytes # (manual) 0.15 K/uL (1.2-3.4); Lymphocytes % (manual) 0.9 %; Monocytes # (manual) 0.92 K/uL (0.11-0.59); Monocytes % (manual) 5.4 %; Neutrophils # (manual) 16.03 K/uL (1.4-6.5); Neutrophils % (manual) 93.7 %; RBC Morphology Unremarkable
--- NOTE | 2020-09-20 08:06 | XRay Report ---
XR chest 1V portable CLINICAL HISTORY: Respiratory failure. COMPARISON STUDY: Chest CT September 16, 2020. Chest radiograph September 19, 2020. FINDINGS: Tip of the endotracheal tube is 4.9 cm above the fernando. Left subclavian central line remai ns in place. Cardiomegaly is unchanged. Extensive interstitial thickening and bilateral opacities per sist. No pneumothorax or pleural effusion is identified. IMPRESSION: 1. Satisfactory positioning of lines and tubes. 2. No significant change in extensive bilateral airspace opacities and interstitial thickening. ACT 112: Negative or not required by law. Electronically signed by: Suresh Montes M.D. 09/20/2020 8:05 AM
--- NOTE | 2020-09-20 08:51 | Critical Care Progress Note ---
Date of Service September 20, 2020 Assessment & Plan (1) Acute respiratory failure with hypoxia: Impression: 60-year-old male with acute hypoxic respiratory failure due to COVID 19 PNA and ARDS. Intubated 09/16/20 24 Hour events: Patient has completed several cycles of proning and was returned to the supine position yesterday afternoon. He does not really augment his PaO2 with proning so we will defer additional proning procedures for now. He remains heavily sedated and paralyzed at this point time. X-ray is stable. Small improvements in his oxygenation. Recommendations: Neuro: Continue sedation with fentanyl Versed and propofol. We will discontinue paralytics at this point time and follow. Will consider daily sedation breaks once respiratory status improves. Resp: Acute hypoxic respiratory failure secondary to COVID-19 pneumonia. Continue dexamethasone. Vent AC 32/440/ 14/0.5 Pplat 30. P/F: 116, slightly worse today. Hold additional diuretics for now. Suspect his mediastinal adenopathy is reactive. No plans for additional proning at this time. May consider trachesotomy next week if fails to make significant progress. CV: Suspect supply demand mismatch resulting in elevated troponin. He is hemod ynamically stable. No indication for echocardiogram currently. Lactic acidosis has cleared. Fluids/Renal: SCr stable. Electrolytes and acid-base status are acceptable. Will give additional Lasix this AM and see how he does. ID: Empirically placed on Rocephin (D#4) but cultures are negative. White count slowly decreasing although it is unclear if this is related to steroids or not. Afebrile currently. GI/Nutrition: Ok to advance tube feeding to goal when off paralytics. Steatohepatitis noted. Follow LFTs for now. H2 yuly in place Heme: DVT prophylaxis per ACCP guidelines. Endocrine: ICU hyperglycemia protocol Hypothyroidism -Continue home Synthroid Vascular access: Left subclavian triple-lumen placed 09/16, right radial arterial line placed 09/16 Code Status: Full code Disposition: ICU Patient is critically ill with multiorgan system dysfunction. Overall prognosis is guarded. A total of 50 minutes in critical care time was spent in evaluation management and stabilization of this patient. (2) Pneumonia due to COVID-19 virus: (3) Obesity (BMI 35.0-39.9 without comorbidity): (4) AKSHAT (acute kidney injury): Admission and Anticipated Discharge Date Admission Date: September 16, 2020 Subjective intubated and sedated. Review of Systems Review of Systems: Unobtainable due to endotracheal tube Physical Exam Constitutional: + morbidly obese Neck: trachea midline, no thyromegaly Respiratory: normal respiratory effort, lungs clear to auscultation Cardiovascular: RRR, no murmur, no edema Gastrointestinal (Abdomen): normal bowel sounds, soft, nontender, no hepatosplenomegaly Musculoskeletal: Extremities: extremities normal to inspection Skin: no rashes, warm and dry Lymphatic: no cervical lymphadenopathy Results & Data Results & Data ([facility]) Vital Signs (Past 12 Hours) Vital Signs Temp Pulse Resp BP Pulse Ox 09/20/20 06:45 36.5 C 63 113/70 90 09/20/20 06:30 36.5 C 63 90 09/20/20 06:15 36.5 C 64 115/71 90 09/20/20 06:00 36.5 C 64 90 09/20/20 05:45 36.6 C 66 112/70 90 09/20/20 05:30 36.6 C 66 91 09/20/20 05:15 36.7 C 63 110/69 90 09/20/20 05:00 36.8 C 63 90 09/20/20 04:45 36.8 C 63 110/69 89 L 09/20/20 04:30 36.9 C 62 89 L 09/20/20 04:15 37.0 C 61 111/69 87 L 09/20/20 04:00 37.0 C 66 34 H 90 09/20/20 03:45 37.0 C 66 121/70 88 L 09/20/20 03:30 37.0 C 66 88 L 09/20/20 03:15 37.0 C 67 121/71 88 L 09/20/20 03:00 37.0 C 67 88 L 09/20/20 02:45 37.0 C 66 122/69 88 L 09/20/20 02:30 37.0 C 68 87 L 09/20/20 02:15 37.0 C 67 121/69 87 L 09/20/20 02:00 37.0 C 71 88 L 09/20/20 01:45 37.0 C 68 121/69 88 L 09/20/20 01:30 37.0 C 68 87 L 09/20/20 01:15 37.0 C 68 123/70 87 L 09/20/20 01:00 37.0 C 68 87 L 09/20/20 00:45 37.0 C 69 129/74 88 L 09/20/20 00:30 37.1 C 69 88 L 09/20/20 00:14 37.1 C 70 130/73 88 L 09/20/20 00:00 37.1 C 69 88 L 09/19/20 23:56 107 H 33 H 89 L 09/19/20 23:44 37.1 C 69 120/72 88 L 09/19/20 23:30 37.1 C 67 89 L 09/19/20 23:14 37.1 C 67 122/70 89 L 09/19/20 23:00 37.1 C 67 90 09/19/20 22:44 37.1 C 68 120/73 90 09/19/20 22:30 37.1 C 68 89 L 09/19/20 22:14 37.1 C 67 121/70 89 L 09/19/20 22:00 37.1 C 67 90 09/19/20 21:44 37.1 C 68 121/70 89 L 09/19/20 21:30 37.1 C 67 90 09/19/20 21:14 37.1 C 67 116/70 90 09/19/20 21:00 37.1 C 66 90 09/19/20 20:44 37.2 C 67 118/68 90 I/O: cumulative +2.8L Laboratory Results 09/20/20 05:04 09/20/20 05:04 AB.32/60/58/33 Diagnostic Findings Chest x-ray from today was independently reviewed. Well visualized but appears to be extending below the diaphragm. There are diffuse patchy bilateral infiltrates unchanged from prior. Coding Level of Care Code Critical Care 1st 30-74 mins Diagnoses Acute respiratory failure with hypoxia J96.01 Pneumonia due to COVID-19 virus U07.1; J12.82 Obesity (BMI 35.0-39.9 without comorbidity) E66.9 AKSHAT (acute kidney injury) N17.9
[2020-09-20] MEDS: MULTI VIT W/MINERALS LIQUID 15 ML UDP NG SCH (09:10)
[2020-09-20] MEDS: DOCUSATE SODIUM SYRUP 100 MG/10 ML UDC PO SCH ×2 (09:10→21:03)
[2020-09-20] MEDS: FAMOTIDINE 20 MG in SYRINGE 3 ML IV SCH ×2 (09:12→21:03)
[2020-09-20] MEDS ORDERED: FUROSEMIDE 20 MG in SYRINGE 0 ML IV ONE (09:15)
[2020-09-20] MEDS: TUBE FEEDING WATER FLUSH OG SCH ×6 (10:02→23:50)
[2020-09-20] MEDS: fentaNYL DRIP 1,250 MCG/250 ML BAG IV SCH ×2 (13:53→23:44)
[2020-09-20] MEDS: dexAMETHasone 6 MG in SYRINGE 0 ML IV SCH (13:55)
[2020-09-20] MEDS: cefTRIAXone SODIUM 2,000 MG in DEXTROSE 5% 50 ML IV SCH (15:42)
--- NOTE | 2020-09-20 22:25 | Hospitalist Progress Note ---
Date of Service September 20, 2020 Assessment & Plan (1) Pneumonia due to COVID-19 virus: Severe COVID - unknown day but reportedly between 12-14 days of illness. -Patient remains intubated. - Decadron 10mg IV for 5 days - Now on Decadron 6mg IV - on ceftriaxone - on ventillation: high peep. - Supportive Care, ARDSnet ventilation per ICU - Sedate to RASS -2 to -4 for compliance and oxygenation- when as applicable, paralysis per ICU - Rocephin 1GM IV q24 - Markedly elevated biomarkers and PCT (2) Acute respiratory failure with hypoxia: As above - CT of the chest rule out PE when stable - Will treat emperically with therapuetic Lovenox (3) Obesity (BMI 35.0-39.9 without comorbidity): No acute intervention - This will greatly impact our ability to prone and ventilate/oxygenate with his body habitus and chest wall compliance. (4) Hypothyroid: Continue levothyroxine (5) Elevated troponin: Mild elevation in the setting of hypoxia- likely demand Type II (6) SIRS (systemic inflammatory response syndrome): Multifactorial organ dysfunction likely related to COVID however can not fully rule out bacterial infection- NLR 4.5:1 - as above. (7) AKSHAT (acute kidney injury): AKSHAT stage II- as above organ dysfunction form SIRS/Sepsis/COVID - Baseline 0.79 - Avoid nephrotoxic agents if able, if needed will minimize exposure time as able to - MAPS >65 - creatinine is slowly worsening. will monitor. Admission and Anticipated Discharge Date Admission Date: September 16, 2020 Subjective 60 yo m is intubated. Review of Systems Review of Systems: All systems reviewed & are unremarkable except as noted in HPI & below Physical Exam Physical Exam: General: intubated and sedated Head: Normocephalic, atraumatic ENT: PERRLA, mucous membranes dry Neuro: Intubated and sedated with propofol and fentanyl. PEERLA as above, ( Chest: Equal rise and fall of the chest, scattered rhonchi, with very little air movement. difficult assessment secondary to body habitus. Cardiac: Regular rate and rhythm, telemetry reviewed, skin warm dry, cap refill >3 seconds GI: NABS x 4 quadrants, no erythema or bruit Results & Data Results & Data ([facility]) Vital Signs (Past 12 Hours) Vital Signs Temp Pulse Resp BP Pulse Ox 09/20/20 21:30 36.4 C L 62 94 09/20/20 21:15 36.4 C L 62 118/72 94 09/20/20 21:00 36.5 C 62 93 09/20/20 20:51 61 33 H 94 09/20/20 20:45 36.4 C L 62 118/70 94 09/20/20 20:30 36.5 C 61 93 09/20/20 20:15 36.5 C 61 116/70 93 09/20/20 20:00 36.5 C 62 94 09/20/20 19:45 36.5 C 63 123/73 94 09/20/20 19:30 36.5 C 63 94 09/20/20 19:15 36.5 C 64 123/72 94 09/20/20 19:00 36.5 C 64 94 09/20/20 17:30 36.5 C 65 94 09/20/20 17:15 36.5 C 64 122/73 94 09/20/20 17:00 36.5 C 65 94 09/20/20 16:45 36.5 C 65 124/73 94 09/20/20 16:30 36.5 C 65 94 09/20/20 16:15 36.5 C 66 123/76 94 09/20/20 16:00 36.5 C 64 94 09/20/20 15:45 36.5 C 65 122/73 93 09/20/20 15:30 36.5 C 64 92 09/20/20 15:15 36.5 C 64 104/62 81 L 09/20/20 15:08 64 34 H 91 09/20/20 15:00 36.5 C 65 93 09/20/20 14:45 36.5 C 65 117/71 93 09/20/20 14:30 36.5 C 64 93 09/20/20 14:15 36.5 C 63 116/70 91 09/20/20 14:00 36.5 C 64 91 09/20/20 13:45 36.5 C 63 120/71 90 09/20/20 13:30 36.5 C 63 93 09/20/20 13:15 36.5 C 63 118/70 93 09/20/20 13:00 36.5 C 63 92 09/20/20 12:45 36.5 C 65 117/70 92 09/20/20 12:30 36.5 C 63 93 09/20/20 12:15 36.5 C 63 113/70 92 09/20/20 12:00 36.5 C 63 92 09/20/20 11:45 36.5 C 63 117/68 92 09/20/20 11:30 36.5 C 64 92 09/20/20 11:15 36.5 C 65 122/70 91 09/20/20 11:00 36.4 C L 62 93 09/20/20 10:56 64 34 H 91 09/20/20 10:45 36.4 C L 63 124/73 91 09/20/20 10:30 36.4 C L 64 91 PG Care Time/CCT Total # of Minutes Spent Total Time Spent with Patient: Total time spent is greater than 50% in coordination of care (as documented) at patient's floor/unit and/or counseling patient: Coding Level of Care Code 87699 Subseq Hosp Care Lvl 2 Diagnoses Pneumonia due to COVID-19 virus U07.1; J12.82 Acute respiratory failure with hypoxia J96.01 Obesity (BMI 35.0-39.9 without comorbidity) E66.9 Hypothyroid E03.9 Elevated troponin R77.8 SIRS (systemic inflammatory response syndrome) R65.10 AKSHAT (acute kidney injury) N17.9 Time Spent (min) 25
[2020-09-21] MEDS: propofoL 1,000 MG/100 ML VIAL IV SCH ×9 (02:08→22:15)
[2020-09-21 04:22] LABS: iSTAT Arterial Blood Gas HCO3 31 meg/L (19-24); iSTAT Arterial Blood Gas pCO2 64 mmHg (35-46); iSTAT Arterial Blood Gas pO2 77 mmHg (80-95); iSTAT Carbon Dioxide 33 mmol/L (24-31); iSTAT Hematocrit 36 % (42-52); iSTAT Hemoglobin 12.2 g/dl (14.0-18.0); iSTAT Potassium 4.5 mmol/L (3.3-5.0); iSTAT Sodium 135 mmol/L (135-144)
[2020-09-21 05:07] LABS: Mean Corpuscular Hgb Conc 32.6 g/dL (32-36); Mean Platelet Volume 11.4 fL (7.4-10.4); Nucleated RBC # (auto) 0.09 K/uL (0-0); Nucleated RBC % (auto) 0.7 %; Platelet Count 313 K/uL (130-400)
[2020-09-21] MEDS: TUBE FEEDING WATER FLUSH OG SCH ×4 (05:25→13:10)
[2020-09-21] MEDS: HEPARIN SOD 5,000 UNIT/0.5 ML VIAL SQ SCH ×3 (05:32→20:19)
[2020-09-21 05:33] LABS: BUN Creatinine Ratio 51.5 (10-20); Creatinine Clr Calc Pharmacy 55.3 ml/min; Est GFR (African American) 39.5; Est GFR (Non-African American) 34.1; Phosphorus 5.2 mg/dl (2.5-4.9); Potassium 4.6 mmol/L (3.5-5.1)
[2020-09-21] MEDS: LEVOTHYROXINE SODIUM 150 MCG TABLET PO SCH (05:33)
[2020-09-21 05:45] LABS: Hematocrit (blood only) 35.3 % (42-52); Hemoglobin 11.5 g/dL (14.0-18.0); Mean Corpuscular Hemoglobin 30.2 pg (25-34); Mean Corpuscular Volume 92.7 fL (80-100); RDW Coefficient of Variation 17.1 % (11.5-14.5); RDW Standard Deviation 58.2 fL (36.4-46.3); Red Blood Count 3.81 M/uL (4.7-6.1); White Blood Count 12.81 K/uL (4.8-10.8)
[2020-09-21 05:56] LABS: ALC (manual) 0.83 K/uL (1.2-3.4); ANC (manual) 9.72 K/uL (1.4-6.5); Giant Platelets 1+; Lymphocytes # (manual) 0.83 K/uL (1.2-3.4); Lymphocytes % (manual) 6.5 %; Metamyelocytes # (manual) 0.12 K/uL (0-0); Metamyelocytes % (manual) 0.9 %; Monocytes # (manual) 0.83 K/uL (0.11-0.59); Monocytes % (manual) 6.5 %; Myelocytes # (manual) 1.31 K/uL (0-0); Myelocytes % (manual) 10.2 %; Neutrophils # (manual) 9.72 K/uL (1.4-6.5); Neutrophils % (manual) 75.9 %
--- NOTE | 2020-09-21 08:13 | XRay Report ---
XR chest 1V portable CLINICAL HISTORY: Respiratory failure. COMPARISON STUDY: Chest radiograph September 20, 2020. FINDINGS: Tip of the endotracheal tube is 5.9 cm above the fernando. Left subclavian central line remai ns in place. Tip of nasogastric tube is at least within the body of the stomach. No pneumothorax or p leural effusion is noted. Cardiomegaly is unchanged. Extensive bilateral airspace opacities persist. IMPRESSION: 1. Satisfactory positioning of lines and tubes. 2. No significant change in extensive bilateral airspace opacities. ACT 112: Negative or not required by law. Electronically signed by: Suresh Montes M.D. 09/21/2020 8:12 AM
--- NOTE | 2020-09-21 08:30 | Critical Care Progress Note ---
Date of Service September 21, 2020 Assessment & Plan (1) Acute respiratory failure with hypoxia: Impression: 60-year-old male with acute hypoxic respiratory failure due to COVID 19 PNA and ARDS. Intubated 09/16/20 24 Hour events: No acute over events overnight. His ventilatory requirements are stable. He remains hemodynamically stable and. Recommendations: Neuro: Continue sedation with fentanyl Versed and propofol. We'll perform daily sedation breaks to assess neurological status but the patient is not yet ready for an SBT. Check TG Resp: Acute hypoxic respiratory failure secondary to COVID-19 pneumonia. Continue dexamethasone. Vent AC 32/440/ 14/0.5 Pplat 32. P/F: Stable today. Hold additional diuretics for now. Suspect his mediastinal adenopathy is reactive. No plans for additional proning at this time. May consider trachesotomy next week if fails to make significant progress. Patient had no significant impr ovement in his oxygenation with proning so will defer additional proning at this point time. CV: Suspect supply demand mismatch resulting in elevated troponin. He is hemodynamically stable. No indication for echocardiogram currently. Lactic acidosis has cleared. Fluids/Renal: SCr stable. Electrolytes and acid-base status are acceptable. Serum creatinine slightly increased yesterday hold on additional Lasix today. ID: Empirically placed on Rocephin (D#5) but cultures are negative. White count slowly decreasing although it is unclear if this is related to steroids or not. Afebrile currently. Discontinue antibiotics at this point time and follow clinically GI/Nutrition: Ok to advance tube feeding to goal when off paralytics. Steatohepatitis noted. Follow LFTs for now. H2 yuly in place Heme: DVT prophylaxis per ACCP guidelines. Endocrine: ICU hyperglycemia protocol Hypothyroidism -Continue home Synthroid Vascular access: Left subclavian triple-lumen placed 09/16, right radial arterial line placed 09/16 Code Status: Full code Disposition: ICU Patient is critically ill with multiorgan system dysfunction. Overall prognosis is guarded. A total of 42 minutes in critical care time was spent in evaluation management and stabilization of this patient. Discussed with FURNITURE INSTALLER at bedside. (2) Pneumonia due to COVID-19 virus: (3) Obesity (BMI 35.0-39.9 without comorbidity): (4) AKSHAT (acute kidney injury): Admission and Anticipated Discharge Date Admission Date: September 16, 2020 Subjective intubated and sedated Review of Systems Review of Systems: Unobtainable due to endotracheal tube Physical Exam Constitutional: + morbidly obese Neck: trachea midline, no thyromegaly Respiratory: normal respiratory effort, lungs clear to auscultation Cardiovascular: RRR, no murmur, no edema Gastrointestinal (Abdomen): normal bowel sounds, soft, nontender, no hepatosplenomegaly Musculoskeletal: Extremities: extremities normal to inspection Skin: no rashes, warm and dry Lymphatic: no cervical lymphadenopathy Results & Data Results & Data ([facility]) Vital Signs (Past 12 Hours) Vital Signs Temp Pulse Resp BP Pulse Ox 09/21/20 06:00 36.0 C L 56 L 94 09/21/20 05:46 36.1 C L 57 L 114/71 94 09/21/20 05:30 36.1 C L 57 L 95 09/21/20 05:16 36.2 C L 57 L 114/70 95 09/21/20 05:00 36.2 C L 57 L 93 09/21/20 04:46 36.3 C L 58 L 106/63 89 L 09/21/20 04:30 36.4 C L 58 L 88 L 09/21/20 04:15 36.5 C 61 113/67 92 09/21/20 04:13 61 33 H 92 09/21/20 04:00 36.5 C 62 09/21/20 03:45 36.5 C 61 122/71 93 09/21/20 03:30 36.5 C 61 93 09/21/20 03:15 36.5 C 61 121/71 93 09/21/20 03:00 36.5 C 61 93 09/21/20 02:45 36.5 C 60 122/69 93 09/21/20 02:30 36.5 C 61 93 09/21/20 02:15 36.5 C 61 114/67 93 09/21/20 02:00 36.5 C 61 93 09/21/20 01:45 36.5 C 61 119/69 93 09/21/20 01:30 36.5 C 61 93 09/21/20 01:15 36.5 C 61 118/71 93 09/21/20 01:00 36.5 C 61 93 09/21/20 00:45 36.5 C 61 120/71 93 09/21/20 00:30 36.5 C 61 93 09/21/20 00:15 36.5 C 61 117/70 93 09/21/20 00:00 36.5 C 62 93 09/20/20 23:45 36.4 C L 61 122/70 93 09/20/20 23:32 65 31 H 94 09/20/20 23:30 36.5 C 63 94 09/20/20 23:15 36.5 C 62 117/71 94 09/20/20 23:00 36.4 C L 64 94 09/20/20 22:45 36.5 C 61 120/70 94 09/20/20 22:30 36.5 C 62 94 09/20/20 22:15 36.5 C 62 120/71 94 09/20/20 22:00 36.4 C L 62 94 09/20/20 21:45 36.4 C L 62 119/71 94 09/20/20 21:30 36.4 C L 62 94 09/20/20 21:15 36.4 C L 62 118/72 94 09/20/20 21:00 36.5 C 62 93 09/20/20 20:51 61 33 H 94 09/20/20 20:45 36.4 C L 62 118/70 94 09/20/20 20:30 36.5 C 61 93 I/O: +1162, cumulative +2548 Laboratory Results 09/21/20 04:44 09/21/20 04:44 ABG: Seven-point //31 Diagnostic Findings Chest x-ray from today independently reviewed. Endotracheal tube and subclavian line in good position. Orogastric tube extends below diaphragm. There are persistent hazy bilateral opacities not significantly changed from yesterday. Coding Level of Care Code Critical Care 1st 30-74 mins Diagnoses Acute respiratory failure with hypoxia J96.01 Pneumonia due to COVID-19 virus U07.1; J12.82 Obesity (BMI 35.0-39.9 without comorbidity) E66.9 AKSHAT (acute kidney injury) N17.9 Time Spent (min) 32
[2020-09-21] MEDS: fentaNYL DRIP 1,250 MCG/250 ML BAG IV SCH ×2 (10:21→19:49)
[2020-09-21] MEDS: DOCUSATE SODIUM SYRUP 100 MG/10 ML UDC PO SCH ×2 (10:21→20:18)
[2020-09-21] MEDS: MULTI VIT W/MINERALS LIQUID 15 ML UDP NG SCH (10:22)
[2020-09-21] MEDS: FAMOTIDINE 20 MG in SYRINGE 3 ML IV SCH ×2 (10:22→20:18)
[2020-09-21] MEDS: dexAMETHasone 6 MG in SYRINGE 0 ML IV SCH (13:10)
--- NOTE | 2020-09-21 22:38 | Hospitalist Progress Note ---
Date of Service September 21, 2020 Assessment & Plan (1) Pneumonia due to COVID-19 virus: Severe COVID - unknown day but reportedly between 12-14 days of illness. -Patient remains intubated. - Decadron 10mg IV for 5 days - Now on Decadron 6mg IV - on ceftriaxone - on ventillation: high peep. - Supportive Care, ARDSnet ventilation per ICU - Sedate to RASS -2 to -4 for compliance and oxygenation- when as applicable, paralysis per ICU - Rocephin 1GM IV q24 - Markedly elevated biomarkers and PCT -dw political analyst -no significant changes (2) Acute respiratory failure with hypoxia: As above - CT of the chest rule out PE when stable - Will treat emperically with therapuetic Lovenox (3) Obesity (BMI 35.0-39.9 without comorbidity): No acute intervention - This will greatly impact our ability to prone and ventilate/oxygenate with his body habitus and chest wall compliance. (4) Hypothyroid: Continue levothyroxine (5) Elevated troponin: Mild elevation in the setting of hypoxia- likely demand Type II (6) SIRS (systemic inflammatory response syndrome): Multifactorial organ dysfunction likely related to COVID however can not fully rule out bacterial infection- NLR 4.5:1 - as above. (7) AKSHAT (acute kidney injury): AKSHAT stage II- as above organ dysfunction form SIRS/Sepsis/COVID - Baseline 0.79 - Avoid nephrotoxic agents if able, if needed will minimize exposure time as able to - MAPS >65 - creatinine is now slowly improving.. (8) Demand ischemia: due to covid 19. Trop peaked at .133 now trending down Admission and Anticipated Discharge Date Admission Date: September 16, 2020 Subjective 60 yo male is intubated. Review of Systems Review of Systems: All systems reviewed & are unremarkable except as noted in HPI & below Physical Exam Physical Exam: General: intubated and sedated Head: Normocephalic, atraumatic ENT: PERRLA, mucous membranes dry Neuro: Intubated and sedated with propofol and fentanyl. PEERLA as above, Chest: Equal rise and fall of the chest, scattered rhonchi,difficult assessment secondary to body habitus. Cardiac: Regular rate and rhythm, telemetry reviewed, skin warm dry, cap refill >3 seconds GI: NABS x 4 quadrants, no erythema or bruit Results & Data Results & Data ([facility]) Vital Signs (Past 12 Hours) Vital Signs Temp Pulse Resp BP Pulse Ox 09/21/20 22:00 37.1 C 66 90 09/21/20 21:46 37.0 C 67 129/67 90 09/21/20 21:30 37.0 C 66 90 09/21/20 21:16 36.9 C 68 128/71 91 09/21/20 21:00 36.9 C 65 91 09/21/20 20:46 36.9 C 66 128/71 91 09/21/20 20:30 36.9 C 65 90 09/21/20 20:16 36.9 C 68 130/70 84 L 09/21/20 20:00 36.9 C 68 86 L 09/21/20 19:46 36.9 C 68 139/73 85 L 09/21/20 19:30 36.9 C 66 89 L 09/21/20 19:16 36.9 C 67 138/76 89 L 09/21/20 19:00 36.8 C 68 89 L 09/21/20 16:00 61 09/21/20 14:30 61 33 H 94 09/21/20 12:42 60 89 L 09/21/20 11:54 60 33 H 89 L PG Care Time/CCT Total # of Minutes Spent Total Time Spent with Patient: Total time spent is greater than 50% in coordination of care (as documented) at patient's floor/unit and/or counseling patient: Coding Level of Care Code 87404 Subseq Hosp Care Lvl 2 Diagnoses Pneumonia due to COVID-19 virus U07.1; J12.82 Acute respiratory failure with hypoxia J96.01 Obesity (BMI 35.0-39.9 without comorbidity) E66.9 Hypothyroid E03.9 Elevated troponin R77.8 SIRS (systemic inflammatory response syndrome) R65.10 AKSHAT (acute kidney injury) N17.9 Demand ischemia I24.8 Time Spent (min) 25
[2020-09-22] MEDS: propofoL 1,000 MG/100 ML VIAL IV SCH ×13 (00:45→15:12)
[2020-09-22 05:02] LABS: iSTAT Arterial Blood Gas HCO3 31 meg/L (19-24); iSTAT Arterial Blood Gas pCO2 55 mmHg (35-46); iSTAT Arterial Blood Gas pH 7.36 (7.35-7.45); iSTAT Arterial Blood Gas pO2 61 mmHg (80-95); iSTAT Carbon Dioxide 32 mmol/L (24-31); iSTAT Hematocrit 34 % (42-52); iSTAT Hemoglobin 11.6 g/dl (14.0-18.0); iSTAT Potassium 4.1 mmol/L (3.3-5.0); iSTAT Sodium 137 mmol/L (135-144)
[2020-09-22 05:06] LABS: Mean Corpuscular Hgb Conc 34.5 g/dL (32-36); Mean Platelet Volume 11.7 fL (7.4-10.4); Nucleated RBC # (auto) 0.12 K/uL (0-0); Nucleated RBC % (auto) 1.2 %; Platelet Count 369 K/uL (130-400)
[2020-09-22] MEDS: fentaNYL DRIP 1,250 MCG/250 ML BAG IV SCH ×7 (05:27→19:33)
[2020-09-22 05:31] LABS: BUN Creatinine Ratio 64.1 (10-20); Calcium 8.1 mg/dl (8.5-10.1); Creatinine Clr Calc Pharmacy 61.8 ml/min; Est GFR (African American) 45.2; Phosphorus 2.7 mg/dl (2.5-4.9); Potassium 4.2 mmol/L (3.5-5.1)
[2020-09-22 05:41] LABS: Hematocrit (blood only) 33.3 % (42-52); Hemoglobin 11.5 g/dL (14.0-18.0); Mean Corpuscular Hemoglobin 31.9 pg (25-34); Mean Corpuscular Volume 92.5 fL (80-100); RDW Standard Deviation 56.1 fL (36.4-46.3)
[2020-09-22 05:49] LABS: ALC (manual) 0.69 K/uL (1.2-3.4); ANC (manual) 7.02 K/uL (1.4-6.5); Lymphocytes # (manual) 0.69 K/uL (1.2-3.4); Lymphocytes % (manual) 6.8 %; Metamyelocytes % (manual) 3.9 %; Monocytes % (manual) 4.9 %; Myelocytes # (manual) 1.49 K/uL (0-0); Myelocytes % (manual) 14.6 %; Neutrophils # (manual) 7.02 K/uL (1.4-6.5); Neutrophils % (manual) 68.8 %
[2020-09-22] MEDS: HEPARIN SOD 5,000 UNIT/0.5 ML VIAL SQ SCH ×3 (06:24→22:43)
[2020-09-22] MEDS: LEVOTHYROXINE SODIUM 150 MCG TABLET PO SCH (06:24)
[2020-09-22] MEDS: TUBE FEEDING WATER FLUSH OG SCH ×7 (08:57→18:20)
--- NOTE | 2020-09-22 08:57 | XRay Report ---
XR chest 1V portable CLINICAL HISTORY: Respiratory failure. COMPARISON STUDY: Chest CT September 16, 2020. Chest radiograph September 21, 2020. FINDINGS: Tip of endotracheal tube is 5.1 cm above the fernando. Left subclavian central line is in maryann ce. Tip of nasogastric tube is not well visualized on this exam but is at least within the stomach. E xtensive bilateral airspace opacities persist. Dense right basilar consolidation has progressed. Card iomegaly is again noted. There is no pneumothorax. No definite pleural effusion is identified. IMPRESSION: 1. Satisfactory positioning of lines and tubes. 2. Extensive bilateral airspace opacities with development of dense right basilar consolidation. ACT 112: Negative or not required by law. Electronically signed by: Suresh Montes M.D. 09/22/2020 8:55 AM
[2020-09-22] MEDS: MULTI VIT W/MINERALS LIQUID 15 ML UDP NG SCH (09:09)
[2020-09-22] MEDS: FAMOTIDINE 20 MG in SYRINGE 3 ML IV SCH ×2 (09:09→22:43)
[2020-09-22] MEDS: DOCUSATE SODIUM SYRUP 100 MG/10 ML UDC PO SCH (09:09)
[2020-09-22] MEDS ORDERED: VECURONIUM BROMIDE 10 MG VIAL IV STA ×2 (10:08→22:09)
[2020-09-22] MEDS ORDERED: dexAMETHasone 20 MG in SYRINGE 0 ML IV SCH (11:15)
[2020-09-22] MEDS ORDERED: STAT IV Infusion **Titration per Protocol STA (11:19)
--- NOTE | 2020-09-22 11:25 | Critical Care Progress Note ---
Date of Service September 22, 2020 Assessment & Plan (1) Acute respiratory failure with hypoxia: Impression: 60-year-old male with acute hypoxic respiratory failure due to COVID 19 PNA and ARDS. Intubated 09/16/20 Recommendations: Neuro: We are weaning off the propofol due to elevated triglycerides. Recheck triglyceride level tomorrow morning. Continue fentanyl. We will initiate Precedex drip. Resp: Acute hypoxic respiratory failure secondary to COVID-19 pneumonia. We will repeat a CRP today. I am increasing his Decadron to 20 mg daily for 5 days followed by 10 mg daily for 5 days per the DEXA ARDS protocol. CV: Likely had demand ischemia earlier in the hospitalization. He is hemodynamically stable. No indication for echocardiogram currently. Fluids/Renal: AKSHAT is improving. We will hold on additional diuretics today. ID: We will recheck procalcitonin today. Previous cultures are negative from the urine, sputum and blood. Holding on antibiotics at this time. GI/Nutrition: Ok to advance tube feeding to goal when off paralytics. Steatohepatitis noted. Follow LFTs for now. H2 yuly in place Heme: Continue with heparin 7500 units subcu every 8 hours. No other acute issues at this time. Endocrine: ICU hyperglycemia protocol Hypothyroidism -Continue home Synthroid Vascular access: Left subclavian triple-lumen placed 09/16, right radial arterial line placed 09/16 Code Status: Full code Disposition: ICU CRITICAL CARE TIME - I have personally spent 35 minutes of critical care time in the direct management of this patient. This is a life/limb threatening event. This includes time spent evaluating patient, direct bedside care, chart review, placing orders, interpretation of diagnostic studies, discussion with consultants, patient, and family members, as well as other required patient management activities. This time is exclusive of all separately billable procedures, and teaching time and separate from and in addition to any other critical care service time. (2) Pneumonia due to COVID-19 virus: (3) Obesity (BMI 35.0-39.9 without comorbidity): (4) AKSHAT (acute kidney injury): Admission and Anticipated Discharge Date Admission Date: September 16, 2020 Subjective Patient seen and examined this morning. He continues to be intubated and heavily sedated. Unresponsive to commands. Unable to obtain review of systems. Physical Exam Constitutional: + morbidly obese Neck: trachea midline, no thyromegaly Respiratory: normal respiratory effort, lungs clear to auscultation Cardiovascular: RRR, no murmur, no edema Gastrointestinal (Abdomen): normal bowel sounds, soft, nontender, no hepatosplenomegaly Musculoskeletal: Extremities: extremities normal to inspection Skin: no rashes, warm and dry Lymphatic: no cervical lymphadenopathy Results & Data Results & Data ([facility]) Vital Signs (Past 12 Hours) Vital Signs Temp Pulse Resp BP Pulse Ox 09/22/20 09:27 82 35 H 89 L 09/22/20 04:41 71 34 H 89 L 09/22/20 01:53 69 36 H 89 L 09/22/20 00:00 99.0 F 68 89 L 09/21/20 23:46 99.0 F 67 131/69 89 L 09/21/20 23:30 99.0 F 68 89 L I reviewed the vital signs, labs and imaging Coding Level of Care Code Critical Care 1st 30-74 mins Diagnoses Acute respiratory failure with hypoxia J96.01 Pneumonia due to COVID-19 virus U07.1; J12.82 Obesity (BMI 35.0-39.9 without comorbidity) E66.9 AKSHAT (acute kidney injury) N17.9 Time Spent (min) 35
[2020-09-22] MEDS: DEXMEDETOMIDINE HCL 200 MCG in SODIUM CHLORIDE 0.9% 48 ML IV SCH ×3 (11:48→16:40)
[2020-09-22] MEDS: DEXMEDETOMIDINE HCL 1,000 MCG in SODIUM CHLORIDE 0.9% 240 ML IV SCH ×2 (18:20→22:48)
[2020-09-22] MEDS ORDERED: MIDAZOLAM HCL 1 MG/ML 2ML VIAL ONE ×2 (19:13→22:46)
[2020-09-22] MEDS: BUDESONIDE 0.5 MG/2 ML VIAL (PULMICORT) NEB SCH (19:30)
[2020-09-22] MEDS ORDERED: MIDAZOLAM HCL 5 MG/ML VIAL IV STA ×2 (19:52→22:43)
[2020-09-22] MEDS ORDERED: MIDAZOLAM HCL 5 MG/ML 1 ML VIAL IV STA (20:02)
[2020-09-22] MEDS ORDERED: MIDAZOLAM HCL 1 MG/ML 2ML VIAL IV STA (20:06)
[2020-09-22] MEDS ORDERED: VECURONIUM BROMIDE 10 MG VIAL IV ONE (22:09)
--- NOTE | 2020-09-22 23:21 | Hospitalist Progress Note ---
Date of Service September 22, 2020 Assessment & Plan (1) Pneumonia due to COVID-19 virus: Severe COVID - unknown day but reportedly between 12-14 days of illness. -Patient remains intubated. - Decadron 20mg IV daily Precedex and Fentanyl for sedation - on ventillation: high peep. - Supportive Care, ARDSnet ventilation per ICU will try to prone later today/tomorrow (2) Acute respiratory failure with hypoxia: As above due to COVID 19 requiring high PEEP Precedex and Fentanyl for sedation prone per ICU (3) Obesity (BMI 35.0-39.9 without comorbidity): No acute intervention - This will greatly impact our ability to prone and ventilate/oxygenate with his body habitus and chest wall compliance. (4) Hypothyroid: Continue levothyroxine (5) Elevated troponin: Mild elevation in the setting of hypoxia- likely demand Type II (6) SIRS (systemic inflammatory response syndrome): Multifactorial organ dysfunction likely related to COVID however can not fully rule out bacterial infection- NLR 4.5:1 - as above. (7) AKSHAT (acute kidney injury): AKSHAT stage II- as above organ dysfunction form SIRS/Sepsis/COVID - Baseline 0.79 - Avoid nephrotoxic agents if able, if needed will minimize exposure time as able to - MAPS >65 - creatinine is 1.8 today (8) Demand ischemia: due to covid 19. Trop peaked at .133 now trending down Admission and Anticipated Discharge Date Admission Date: September 16, 2020 Subjective d/w ICU, they are managing plan to prone later today/tomorrow morning reviewed chart, reviewed labs Review of Systems Review of Systems: Unobtainable due to endotracheal tube Physical Exam Constitutional: + obese and + mechanically ventilated; no acute distress Neck: trachea midline, no thyromegaly + thick neck Respiratory: symmetric chest movement Auscultation: lungs clear to auscultation bilaterally Cardiovascular: RRR, no murmur, no edema Gastrointestinal (Abdomen): normal bowel sounds, soft, nontender, no hepatosplenomegaly Musculoskeletal: no cyanosis or clubbing, extremities motor strength 5/5 Skin: no rashes, warm and dry Results & Data Results & Data ([facility]) Vital Signs (Past 12 Hours) Vital Signs Temp Pulse Resp BP Pulse Ox 09/22/20 22:31 72 32 H 89 L 09/22/20 19:30 74 34 H 88 L 09/22/20 18:17 38.0 C H 72 138/71 88 L 09/22/20 18:00 38.0 C H 72 88 L 09/22/20 17:47 38.0 C H 72 140/72 88 L 09/22/20 17:30 38.0 C H 72 89 L 09/22/20 17:17 37.9 C H 71 137/74 88 L 09/22/20 17:00 37.9 C H 71 88 L 09/22/20 16:47 37.9 C H 71 136/69 88 L 09/22/20 16:30 37.9 C H 71 88 L 09/22/20 16:17 37.8 C H 70 133/65 90 09/22/20 16:05 71 24 91 09/22/20 16:00 37.8 C H 71 91 09/22/20 15:47 37.7 C H 71 135/74 91 09/22/20 15:30 37.7 C H 71 90 09/22/20 15:17 37.6 C H 71 131/70 90 09/22/20 15:00 37.5 C 71 90 09/22/20 14:47 37.5 C 71 130/69 89 L 09/22/20 14:30 37.4 C 70 88 L 09/22/20 14:17 37.4 C 72 133/67 88 L 09/22/20 14:00 37.4 C 74 88 L 09/22/20 13:47 37.3 C 73 134/67 88 L 09/22/20 13:30 37.3 C 75 87 L 09/22/20 13:17 37.3 C 76 142/66 H 87 L 09/22/20 13:00 37.3 C 78 88 L 09/22/20 12:47 37.3 C 79 139/68 88 L 09/22/20 12:30 37.3 C 80 92 09/22/20 12:17 37.2 C 81 148/69 H 92 09/22/20 12:00 37.2 C 85 92 09/22/20 11:47 37.2 C 86 158/71 H 93 09/22/20 11:30 37.2 C 82 93 Laboratory Results Laboratory Results - last 24 hr 09/22/20 09/22/2009/22/21 04:48 04:48 04:48 WBC 10.20 RBC 3.60 L Hgb 11.5 L POC Hgb Hct 33.3 L POC Hct MCV 92.5 MCH 31.9 MCHC 34.5 RDW Std Deviation 56.1 H RDW Coeff of Royce 17.0 H Plt Count 369 MPV 11.7 H Absolute Nucleated RBC 0.12 H Nucleated RBC % (auto) 1.2 Neutrophils % (Manual) 68.8 Lymphocytes % (Manual) 6.8 Monocytes % (Manual) 4.9 Eosinophils % (Manual) 1.0 Metamyelocytes % (Man) 3.9 Myelocytes % (Man) 14.6 Neutrophils # (Manual) 7.02 H Total Absolute Neuts 7.02 H Lymphocytes # (Manual) 0.69 L Total Abs Lymphocytes 0.69 L Monocytes # (Manual) 0.50 Eosinophils # (Manual) 0.10 Metamyelocytes # (Man) 0.40 H Myelocytes # (Manual) 1.49 H POC pH POC pCO2 POC pO2 POC HCO3 POC Total CO2 POC Base Excess POC ABG O2 Sat POC Sodium Sodium 136 POC Potassium Potassium 4.2 Chloride 101 Carbon Dioxide 31 Anion Gap 4.0 BUN 119 H Creatinine 1.86 H Est Cr Clr Drug Dosing 61.8 Est GFR ( Amer) 45.2 Est GFR (Non-Af Amer) 39.0 BUN/Creatinine Ratio 64.1 H Glucose 123 H Calcium 8.1 L Phosphorus 2.7 D Magnesium 4.0 H C-Reactive Protein 12.80 H Triglycerides 736 H Procalcitonin 09/22/20 09/22/20 04:49 11:43 WBC RBC Hgb POC Hgb 11.6 L Hct POC Hct 34 L MCV MCH MCHC RDW Std Deviation RDW Coeff of Royce Plt Count MPV Absolute Nucleated RBC Nucleated RBC % (auto) Neutrophils % (Manual) Lymphocytes % (Manual) Monocytes % (Manual) Eosinophils % (Manual) Metamyelocytes % (Man) Myelocytes % (Man) Neutrophils # (Manual) Total Absolute Neuts Lymphocytes # (Manual) Total Abs Lymphocytes Monocytes # (Manual) Eosinophils # (Manual) Metamyelocytes # (Man) Myelocytes # (Manual) POC pH 7.36 POC pCO2 55 H POC pO2 61 L POC HCO3 31 H POC Total CO2 32 H POC Base Excess 5.0 H POC ABG O2 Sat 89.0 L POC Sodium 137 Sodium POC Potassium 4.1 Potassium Chloride Carbon Dioxide Anion Gap BUN Creatinine Est Cr Clr Drug Dosing Est GFR ( Amer) Est GFR (Non-Af Amer) BUN/Creatinine Ratio Glucose Calcium Phosphorus Magnesium C-Reactive Protein Triglycerides Procalcitonin 5.01 H Medications Administered Current Inpatient Medications Budesonide (Budesonide 0.5 Mg/2 Ml Vial (Pulmicort)) 0.5 mg NEB BIDR [facility] Stop: 10/22/20 18:59 Last Admin: 09/22/20 19:30 Dose: 0.5 mg Documented by: Docusate Sodium (Docusate Sodium Syrup 100 Mg/10 Ml Udc) 100 mg PO BID [facility] Stop: 10/17/20 11:59 Last Admin: 09/22/20 09:09 Dose: 100 mg Documented by: Fentanyl Citrate (Fentanyl Bolus From Bag) 50 mcg IV Q60M PRN PRN Reason: Pain or Agitation Stop: 09/30/20 13:07 Last Admin: 09/18/20 23:41 Dose: 50 mcg Documented by: Heparin Sodium (Beef Lung) (Heparin 10 Unit/Ml 5 Ml Flush) 5 ml FLUSH PRN PRN PRN Reason: Flush Stop: 10/17/20 00:02 Heparin Sodium (Porcine) (Heparin Sod 5,000 Unit/0.5 Ml Vial) 7,500 units SQ Q8 [facility] Stop: 10/20/20 05:59 Last Admin: 09/22/20 22:43 Dose: 7,500 units Documented by: Fentanyl Citrate (Fentanyl Drip) 1,250 mcg in 250 mls @ 35 mls/hr IV .Q7H9M [facility]; Protocol Stop: 09/30/20 13:14 Last Admin: 09/22/20 19:33 Dose: 175 mcg/hr, 35 mls/hr Documented by: Famotidine 20 mg/ Syringe 5 mls @ 2.5 mls/min IV Q12 [facility] Stop: 10/17/20 11:59 Last Admin: 09/22/20 22:43 Dose: 2.5 mls/min Documented by: Dexamethasone 10 mg/ Syringe 2.5 mls @ 1 mls/min IV DAILY [facility] Stop: 10/01/20 09:01 Dexamethasone 20 mg/ Dextrose 30 mls @ 120 mls/hr IV DAILY [facility] Stop: 09/26/20 09:14 Dexmedetomidine HCl 1,000 mcg/ (Sodium Chloride) 250 mls @ 54.9 mls/hr IV .Q4H34M [facility]; Protocol Stop: 09/26/20 17:59 Last Admin: 09/22/20 22:48 Dose: 1.5 mcg/kg/hr, 54.9 mls/hr Documented by: Levothyroxine Sodium (Levothyroxine Sodium 150 Mcg Tablet) 150 mcg PO DAILYBB [facility] Stop: 10/18/20 06:29 Last Admin: 09/22/20 06:24 Dose: 150 mcg Documented by: Multivitamins/Minerals (Multi Vit W/Minerals Liquid 15 Ml Udp) 15 ml NG QAM JAS[facility] Stop: 10/17/20 08:59 Last Admin: 09/22/20 09:09 Dose: 15 ml Documented by: Nutritional Formula (Peptamen Intense Vhp 1.0 Shay 1,000 Ml Bag) 1,000 ml OG UD [facility]; Protocol Stop: 10/16/20 18:14 Last Admin: 09/18/20 15:58 Dose: 1,000 ml Documented by: Sterile Water (Tube Feeding Water Flush) 30 ml OG Q4H JASEN Stop: 10/16/20 18:14 Last Admin: 09/22/20 18:20 Dose: 30 ml Documented by: PG Care Time/CCT Total # of Minutes Spent Total Time Spent with Patient: Total time spent is greater than 50% in coordination of care (as documented) at patient's floor/unit and/or counseling patient: Coding Level of Care Code 23361 Subseq Hosp Care Lvl 2 Diagnoses Pneumonia due to COVID-19 virus U07.1; J12.82 Acute respiratory failure with hypoxia J96.01 Obesity (BMI 35.0-39.9 without comorbidity) E66.9 Hypothyroid E03.9 Elevated troponin R77.8 SIRS (systemic inflammatory response syndrome) R65.10 AKSHAT (acute kidney injury) N17.9 Demand ischemia I24.8
[2020-09-23] MEDS ORDERED: VECURONIUM BROMIDE 10 MG VIAL IV STA (00:28)
[2020-09-23] MEDS ORDERED: VECURONIUM BROMIDE 10 MG VIAL IV ONE (00:31)
[2020-09-23] MEDS: CISATRACURIUM BESYLATE 40 MG in 0.9 % SODIUM CHLORIDE 80 ML IV SCH ×4 (00:52→21:54)
[2020-09-23] MEDS: DOCUSATE SODIUM SYRUP 100 MG/10 ML UDC PO SCH ×3 (01:56→20:11)
[2020-09-23] MEDS: TUBE FEEDING WATER FLUSH OG SCH ×6 (01:57→18:11)
[2020-09-23] MEDS: fentaNYL DRIP 1,250 MCG/250 ML BAG IV SCH ×5 (02:54→21:53)
[2020-09-23] MEDS: DEXMEDETOMIDINE HCL 1,000 MCG in SODIUM CHLORIDE 0.9% 240 ML IV SCH ×5 (02:59→23:19)
[2020-09-23] MEDS: DEXMEDETOMIDINE HCL 200 MCG in SODIUM CHLORIDE 0.9% 48 ML IV SCH (04:11)
[2020-09-23] MEDS ORDERED: FUROSEMIDE 40 MG in SYRINGE 0 ML IV ONE ×2 (04:55→22:06)
[2020-09-23] MEDS: HEPARIN SOD 5,000 UNIT/0.5 ML VIAL SQ SCH ×3 (05:10→20:11)
[2020-09-23] MEDS: LEVOTHYROXINE SODIUM 150 MCG TABLET PO SCH (05:11)
[2020-09-23 05:17] LABS: iSTAT Arterial Blood Gas HCO3 31 meg/L (19-24); iSTAT Arterial Blood Gas pCO2 71 mmHg (35-46); iSTAT Arterial Blood Gas pH 7.25 (7.35-7.45); iSTAT Arterial Blood Gas pO2 63 mmHg (80-95); iSTAT Carbon Dioxide 34 mmol/L (24-31); iSTAT Hematocrit 37 % (42-52); iSTAT Hemoglobin 12.6 g/dl (14.0-18.0); iSTAT Potassium 5.3 mmol/L (3.3-5.0); iSTAT Sodium 140 mmol/L (135-144)
[2020-09-23 05:37] LABS: Hematocrit (blood only) 36.3 % (42-52); Mean Corpuscular Hgb Conc 33.1 g/dL (32-36); Mean Corpuscular Volume 96.8 fL (80-100); Mean Platelet Volume 11.2 fL (7.4-10.4); Nucleated RBC # (auto) 0.07 K/uL (0-0); Nucleated RBC % (auto) 0.6 %; Platelet Count 338 K/uL (130-400); RDW Coefficient of Variation 17.3 % (11.5-14.5); RDW Standard Deviation 59.9 fL (36.4-46.3); Red Blood Count 3.75 M/uL (4.7-6.1); White Blood Count 10.84 K/uL (4.8-10.8)
[2020-09-23 06:06] LABS: BUN Creatinine Ratio 62.5 (10-20); Calcium 8.3 mg/dl (8.5-10.1); Creatinine Clr Calc Pharmacy 54.4 ml/min; Est GFR (African American) 38.8; Est GFR (Non-African American) 33.5; Magnesium 4.1 mg/dl (1.8-2.4); Phosphorus 6.3 mg/dl (2.5-4.9); Potassium 5.3 mmol/L (3.5-5.1)
[2020-09-23 06:38] LABS: ALC (manual) 1.36 K/uL (1.2-3.4); ANC (manual) 6.68 K/uL (1.4-6.5); Lymphocytes # (manual) 1.16 K/uL (1.2-3.4); Lymphocytes % (manual) 10.7 %; Metamyelocytes % (manual) 1.8 %; Monocytes # (manual) 1.16 K/uL (0.11-0.59); Monocytes % (manual) 10.7 %; Myelocytes # (manual) 1.45 K/uL (0-0); Myelocytes % (manual) 13.4 %; Neutrophils # (manual) 6.68 K/uL (1.4-6.5); Neutrophils % (manual) 61.6 %; Plasma Cells % (manual) 1.8 %; RBC Morphology Unremarkable
--- NOTE | 2020-09-23 08:15 | XRay Report ---
XR chest 1V portable HISTORY: 60 years-old Male worsening hypoxia acute hypoxia with respiratory failure COMPARISON: Chest radiograph of same day at 7:35 AM TECHNIQUE: Semierect AP view of the chest FINDINGS: Endotracheal tube overlies the midline, 4.3 cm superior to the fernando. Left subclavian central venous catheter is unchanged. Enteric tube is present with distal tip terminating outside the [id number] within the region of the gastric lumen. Cardiac silhouette is enlarged. Extensive mixed interstitial and alveolar opacities have progressed from comparison, notably within the right lung. Suggested sma ll right pleural effusion. No pneumothorax. The bones appear grossly intact. IMPRESSION: 1. Lines and tubes as above. 2. Extensive bilateral opacities with mild progression within the right lung. ACT 112: Negative or not required by law. The above report was generated using voice recognition software. It may contain grammatical, syntax o r spelling errors. Electronically signed by: Kofi Ledezma M.D. 09/23/2020 8:13 AM
[2020-09-23] MEDS: dexAMETHasone 20 MG in DEXTROSE 5% 25 ML IV SCH (08:41)
[2020-09-23] MEDS: FAMOTIDINE 20 MG in SYRINGE 3 ML IV SCH ×2 (08:41→20:11)
[2020-09-23] MEDS: MULTI VIT W/MINERALS LIQUID 15 ML UDP NG SCH (08:41)
[2020-09-23] MEDS: BUDESONIDE 0.5 MG/2 ML VIAL (PULMICORT) NEB SCH ×3 (09:29→19:59)
[2020-09-23 10:36] LABS: Base Excess ABG -0.3 mEq/L (-9-1.8); HCO3 ABG 30 mmol/L (19-24); Oxygen Saturation ABG 92.3 % (90-95); PCO2 ABG 75 mmHg (35-46); PO2 ABG 68 mmHg (80-95); pH ABG 7.22 (7.35-7.45)
[2020-09-23 10:45] LABS: Allen Test Pos (Pos)
[2020-09-23 11:15] LABS: BUN Creatinine Ratio 63.8 (10-20); Calcium 8.3 mg/dl (8.5-10.1); Creatinine Clr Calc Pharmacy 51.3 ml/min; Est GFR (African American) 36.1; Est GFR (Non-African American) 31.2; Potassium 5.7 mmol/L (3.5-5.1)
[2020-09-23 11:26] LABS: T4 Free Thyroxine 0.62 ng/dl (0.8-1.6); Thyroid Stimulating Hormone 0.425 uIu/ml (0.300-4.500)
[2020-09-23] MEDS: CEFEPIME 2,000 MG in SYRINGE 0 ML IV SCH ×2 (11:42→23:21)
--- NOTE | 2020-09-23 11:52 | Critical Care Progress Note ---
Date of Service September 23, 2020 Assessment & Plan (1) Acute respiratory failure with hypoxia: Impression: 60-year-old male with acute hypoxic respiratory failure due to COVID 19 PNA and ARDS. Intubated 09/16/20 Recommendations: Neuro: Continue Precedex, fentanyl and Nimbex drip. Propofol weaned off yesterday due to hypertriglyceridemia. Triglyceride levels improved to 329 today. Resp: Acute hypoxic respiratory failure secondary to COVID-19 pneumonia. Continue Decadron to 20 mg daily for 5 days followed by 10 mg daily for 5 days per the DEXA ARDS protocol. Initiating nebulized epoprostenol due to severe ARDS. Prognosis is extremely poor at this point. Family is updated. Patient with very elevated plateau pressures and is difficult to ventilate. Severe respiratory acidosis present. CV: Likely had demand ischemia earlier in the hospitalization. He is hemodynamically stable. No indication for echocardiogram currently. Fluids/Renal: AKSHAT worsening today. He also has evidence of hyperkalemia. We will hold on diuresis. Insulin D50 ordered for the hyperkalemia. Will recheck BMP in 4 hours. Kayexalate ordered as well. ID: Procalcitonin elevated to 5.0. CRP level 12.8. Possibly related to renal failure. Cefepime started empirically. Previous cultures are negative from the urine, sputum and blood. GI/Nutrition: Continue with tube feeds. Hold around the time of pronation and supination. Follow LFTs for now. H2 yuly in place. Triglyceride level improved to 329. Heme: Continue with heparin 5000 units subcu every 8 hours. No other acute issues at this time. Endocrine: ICU hyperglycemia protocol Hypothyroidism -Continue home Synthroid TSH within normal limits Vascular access: Left subclavian triple-lumen placed 09/16, right radial arterial line placed 09/16 Code Status: Full code Disposition: Patient's niece, Cris, was updated over the phone about the patient's grave prognosis. She would like the patient changed to a DNR. She is going to discuss with her brother with regards to her care moving forward. She notes that the patient would likely not like to be left on life support for prolonged period of time. Palliative care consultation has been placed. Again, prognosis is extremely poor given the multiorgan failure and there is a high likelihood of sudden deterioration or . CRITICAL CARE TIME - I have personally spent 60 minutes of critical care time in the direct management of this patient. This is a life/limb threatening event. This includes time spent evaluating patient, direct bedside care, chart review, placing orders, interpretation of diagnostic studies, discussion with consultants, patient, and family members, as well as other required patient management activities. This time is exclusive of all separately billable procedures, and teaching time and separate from and in addition to any other critical care service time. (2) Pneumonia due to COVID-19 virus: (3) Obesity (BMI 35.0-39.9 without comorbidity): (4) AKSHAT (acute kidney injury): (5) Hyperkalemia: (6) Morbid obesity due to excess calories: Admission and Anticipated Discharge Date Admission Date: September 16, 2020 Subjective Patient had a hypoxemic event overnight and underwent proning. He is currently 90% FiO2 and a PEEP of 14. Saturating 91%. He is also currently on Precedex, fentanyl and Nimbex drip. Review of Systems Review of Systems: Unobtainable due to endotracheal tube Physical Exam Constitutional: + morbidly obese Physical exam is somewhat limited as the patient is currently proned and paralyzed. Neck: trachea midline, no thyromegaly Respiratory: normal respiratory effort, lungs clear to auscultation Cardiovascular: RRR, no murmur, no edema Gastrointestinal (Abdomen): normal bowel sounds, soft, nontender, no hepatosplenomegaly Musculoskeletal: Extremities: extremities normal to inspection Skin: no rashes, warm and dry Neurologic: Unable to fully assess as he is currently paralyzed. Psychiatric: Unable to fully assess Lymphatic: no cervical lymphadenopathy Results & Data Results & Data ([facility]) Vital Signs (Past 12 Hours) Vital Signs Temp Pulse Resp BP Pulse Ox 09/23/20 09:30 99.7 F H 79 91 09/23/20 09:26 76 32 H 91 09/23/20 09:00 99.7 F H 74 90 09/23/20 08:48 99.7 F H 75 138/77 91 09/23/20 08:30 99.9 F H 75 90 09/23/20 08:00 99.9 F H 75 90 09/23/20 07:48 99.9 F H 77 140/79 90 09/23/20 07:30 99.9 F H 75 90 09/23/20 07:00 100.0 F H 74 89 L 09/23/20 06:48 100.0 F H 77 141/82 H 89 L 09/23/20 06:45 100.0 F H 75 89 L 09/23/20 05:30 100.0 F H 74 89 L 09/23/20 05:00 100.2 F H 74 89 L 09/23/20 04:50 73 32 H 89 L 09/23/20 04:48 100.2 F H 72 136/80 89 L 09/23/20 04:30 100.4 F H 70 89 L 09/23/20 04:00 100.4 F H 71 89 L 09/23/20 03:47 100.4 F H 69 130/80 89 L 09/23/20 03:30 100.4 F H 69 89 L 09/23/20 03:17 100.4 F H 68 130/77 89 L 09/23/20 03:00 100.4 F H 68 89 L 09/23/20 02:47 100.6 F H 69 130/78 89 L 09/23/20 02:30 100.6 F H 68 89 L 09/23/20 02:17 100.6 F H 68 129/77 92 09/23/20 02:15 68 32 H 93 09/23/20 02:00 100.6 F H 69 92 09/23/20 01:47 100.6 F H 69 131/77 92 09/23/20 01:30 100.6 F H 69 90 09/23/20 01:18 100.6 F H 68 89 L 09/23/20 01:17 100.6 F H 69 130/76 89 L 09/23/20 01:00 100.6 F H 68 87 L 09/23/20 00:47 100.8 F H 68 130/78 83 L 09/23/20 00:30 100.8 F H 68 86 L 09/23/20 00:27 100.8 F H 68 127/75 82 L 09/23/20 00:00 100.8 F H 69 89 L 09/22/20 23:48 100.9 F H 73 89 L Vital signs, labs and imaging reviewed Coding Level of Care Code Critical Care 1st 30-74 mins Diagnoses Acute respiratory failure with hypoxia J96.01 Pneumonia due to COVID-19 virus U07.1; J12.82 Obesity (BMI 35.0-39.9 without comorbidity) E66.9 AKSHAT (acute kidney injury) N17.9 Hyperkalemia E87.5 Morbid obesity due to excess calories E66.01 Time Spent (min) 60
[2020-09-23] MEDS ORDERED: SODIUM POLYSTYRENE SULFONATE 15G/60ML SUSP PO STA (12:27)
[2020-09-23] MEDS ORDERED: INSULIN HUMAN REGULAR PER UNIT 10 UNITS in SYRINGE 9.9 ML IV STA ×2 (12:33→18:40)
[2020-09-23] MEDS ORDERED: CALCIUM GLUCONATE 10% 1,000 MG in SODIUM CHLORIDE 0.9% 50 ML IV STA (12:33)
[2020-09-23] MEDS ORDERED: DEXTROSE 50% 50 ML SYRINGE IV STA ×2 (12:34→18:39)
[2020-09-23] MEDS: EPOPROSTENOL SODIUM INH PRN ×2 (12:42→17:08)
[2020-09-23 14:18] LABS: iSTAT Arterial Blood Gas HCO3 30 meg/L (19-24); iSTAT Arterial Blood Gas pCO2 103 mmHg (35-46); iSTAT Arterial Blood Gas pH 7.08 (7.35-7.45); iSTAT Arterial Blood Gas pO2 80 mmHg (80-95); iSTAT Carbon Dioxide 34 mmol/L (24-31); iSTAT Hematocrit 39 % (42-52); iSTAT Hemoglobin 13.3 g/dl (14.0-18.0); iSTAT Sodium 141 mmol/L (135-144)
[2020-09-23 15:37] LABS: iSTAT Arterial Blood Gas HCO3 31 meg/L (19-24); iSTAT Arterial Blood Gas pCO2 86 mmHg (35-46); iSTAT Arterial Blood Gas pH 7.16 (7.35-7.45); iSTAT Arterial Blood Gas pO2 78 mmHg (80-95); iSTAT Carbon Dioxide 33 mmol/L (24-31)
[2020-09-23 17:33] LABS: iSTAT Arterial Blood Gas HCO3 30 meg/L (19-24); iSTAT Arterial Blood Gas pCO2 71 mmHg (35-46); iSTAT Arterial Blood Gas pH 7.24 (7.35-7.45); iSTAT Arterial Blood Gas pO2 70 mmHg (80-95); iSTAT Carbon Dioxide 32 mmol/L (24-31)
--- NOTE | 2020-09-23 17:45 | XRay Report ---
XR chest 1V portable HISTORY: Respiratory failure. COMPARISON: Chest 09/22/2020. FINDINGS: The endotracheal tube terminates 4.7 cm from the fernando. Left subclavian central venous cat heter terminates in the SVC. Nasogastric tube terminates below the diaphragm. The tip is not included on this study. No significant change in the diffuse bilateral airspace opacities. No pneumothorax. N o pleural effusions. IMPRESSION: 1. Satisfactory support line placement. 2. No change in the extensive bilateral airspace opacities. ACT 112: Negative or not required by law. Electronically signed by: Juve Cantor M.D. 09/23/2020 5:44 PM
[2020-09-23 18:24] LABS: BUN Creatinine Ratio 56.8 (10-20); Calcium 8.6 mg/dl (8.5-10.1); Creatinine Clr Calc Pharmacy 45.6 ml/min; Est GFR (African American) 31.3; Magnesium 4.2 mg/dl (1.8-2.4); Potassium 6.3 mmol/L (3.5-5.1)
[2020-09-23] MEDS ORDERED: SODIUM BICARB 8.4% INJ 50 MEQ/50 ML SYR IV STA (18:40)
[2020-09-23 18:41] LABS: Phosphorus 8.2 mg/dl (2.5-4.9)
[2020-09-23 21:44] LABS: BUN Creatinine Ratio 59.5 (10-20); Calcium 8.8 mg/dl (8.5-10.1); Creatinine Clr Calc Pharmacy 45.7 ml/min; Est GFR (African American) 31.5; Est GFR (Non-African American) 27.1; Potassium 5.7 mmol/L (3.5-5.1)
[2020-09-23 22:16] LABS: iSTAT Arterial Blood Gas HCO3 30 meg/L (19-24); iSTAT Arterial Blood Gas pCO2 78 mmHg (35-46); iSTAT Arterial Blood Gas pH 7.19 (7.35-7.45); iSTAT Arterial Blood Gas pO2 65 mmHg (80-95); iSTAT Carbon Dioxide 32 mmol/L (24-31)
[2020-09-23] MEDS: FUROSEMIDE 100 MG in DEXTROSE 5% 90 ML IV SCH (23:11)
--- NOTE | 2020-09-23 23:23 | Hospitalist Progress Note ---
Date of Service September 23, 2020 Assessment & Plan (1) Pneumonia due to COVID-19 virus: Severe COVID -Patient remains intubated. - Decadron 20mg IV daily x 5 days then 10mg IV daily x 5 days Precedex and Fentanyl for sedation, paralyzed today for prone position - on ventillation: high peep. - Supportive Care, ARDSnet ventilation per ICU (2) Acute respiratory failure with hypoxia: As above due to COVID 19 requiring high PEEP Precedex and Fentanyl for sedation paralyze and prone today (3) AKSHAT (acute kidney injury): AKSHAT stage II- as above organ dysfunction form SIRS/Sepsis/COVID - Baseline 0.79 - Avoid nephrotoxic agents if able, if needed will minimize exposure time as able to - MAPS >65 - creatinine rising to 2.2, 2.5 today, with high K Lasix drip started to improve UO and treat hyperK (4) Hyperkalemia: improved with Lasix IV drip follow closely (5) Obesity (BMI 35.0-39.9 without comorbidity): No acute intervention - This will greatly impact our ability to prone and ventilate/oxygenate with his body habitus and chest wall compliance. (6) Hypothyroid: Continue levothyroxine (7) Elevated troponin: Mild elevation in the setting of hypoxia- likely demand Type II (8) SIRS (systemic inflammatory response syndrome): Multifactorial organ dysfunction likely related to COVID however can not fully rule out bacterial infection- NLR 4.5:1 - as above. (9) Demand ischemia: due to covid 19. Trop peaked at .133 now trending down Admission and Anticipated Discharge Date Admission Date: September 16, 2020 Subjective patient prone today reviewed labs Review of Systems Review of Systems: Unobtainable due to endotracheal tube Physical Exam Constitutional: + obese and + mechanically ventilated (prone position); no acute distress Neck: trachea midline, no thyromegaly + thick neck Respiratory: symmetric chest movement Auscultation: lungs clear to auscultation bilaterally Cardiovascular: RRR, no murmur, no edema Gastrointestinal (Abdomen): normal bowel sounds, soft, nontender, no hepatosplenomegaly Musculoskeletal: no cyanosis or clubbing, extremities motor strength 5/5 Skin: no rashes, warm and dry Results & Data Results & Data ([facility]) Vital Signs (Past 12 Hours) Vital Signs Temp Pulse Resp BP Pulse Ox 04/13/21 23:07 61 34 H 139/69 92 09/23/20 22:02 81 34 H 195/78 H 90 09/23/20 21:01 74 34 H 167/74 H 92 09/23/20 19:59 66 34 H 143/75 H 91 09/23/20 19:14 58 L 34 H 130/67 95 09/23/20 19:10 55 L 34 H 95 09/23/20 18:07 59 L 34 H 128/75 95 09/23/20 18:00 36.7 C 58 L 95 09/23/20 17:48 36.8 C 59 L 128/75 95 09/23/20 17:30 36.8 C 59 L 94 09/23/20 17:24 64 34 H 138/67 90 09/23/20 17:00 36.9 C 60 92 09/23/20 16:48 37.0 C 62 119/71 89 L 09/23/20 16:30 37.1 C 63 93 09/23/20 16:00 37.2 C 63 36 H 124/58 L 91 09/23/20 15:57 63 36 H 92 09/23/20 15:56 37.2 C 63 110/64 91 09/23/20 15:30 37.2 C 71 93 09/23/20 15:06 73 36 H 139/64 92 09/23/20 15:00 37.2 C 74 92 09/23/20 14:49 37.2 C 76 92 09/23/20 14:48 37.2 C 77 133/76 92 09/23/20 14:30 37.2 C 83 92 09/23/20 14:10 89 36 H 168/84 H 92 09/23/20 14:00 37.2 C 96 H 91 09/23/20 13:48 37.2 C 106 H 167/83 H 91 09/23/20 13:44 37.2 C 107 H 168/84 H 91 09/23/20 13:30 37.2 C 107 H 91 09/23/20 13:00 37.3 C 100 H 91 09/23/20 12:48 37.3 C 100 H 154/82 H 91 09/23/20 12:47 99 H 32 H 90 09/23/20 12:44 99 H 32 H 169/68 H 90 09/23/20 12:30 37.2 C 106 H 89 L 09/23/20 12:00 37.3 C 106 H 89 L 09/23/20 11:48 37.3 C 106 H 169/89 H 90 09/23/20 11:30 37.4 C 100 H 89 L Laboratory Results Laboratory Results - last 24 hr 09/23/20 09/23/20 09/23/20 05:04 05:07 05:07 WBC 10.84 H RBC 3.75 L Hgb 12.0 L POC Hgb 12.6 L Hct 36.3 L POC Hct 37 L MCV 96.8 MCH 32.0 MCHC 33.1 RDW Std Deviation 59.9 H RDW Coeff of Royce 17.3 H Plt Count 338 MPV 11.2 H Absolute Nucleated RBC 0.07 H Nucleated RBC % (auto) 0.6 Neutrophils % (Manual) 61.6 Lymphocytes % (Manual) 10.7 Monocytes % (Manual) 10.7 Metamyelocytes % (Man) 1.8 Myelocytes % (Man) 13.4 Plasma Cell % (Manual) 1.8 Neutrophils # (Manual) 6.68 H Total Absolute Neuts 6.68 H Lymphocytes # (Manual) 1.16 L Total Abs Lymphocytes 1.36 Monocytes # (Manual) 1.16 H Metamyelocytes # (Man) 0.20 H Myelocytes # (Manual) 1.45 H Plasma Cell # (Manual) 0.20 H RBC Morphology Unremarkable POC pH 7.25 L POC pCO2 71 H POC pO2 63 L POC HCO3 31 H POC Total CO2 34 H POC Base Excess 4.0 H ABG pH ABG pCO2 ABG pO2 ABG HCO3 POC ABG O2 Sat 86.0 L ABG O2 Saturation ABG Base Excess Reginald Test Barometric Pressure Oxygen Given POC Sodium 140 Sodium 139 POC Potassium 5.3 H Potassium 5.3 H D Chloride 105 Carbon Dioxide 29 Anion Gap 5.0 BUN 132 H Creatinine 2.11 H Est Cr Clr Drug Dosing 54.4 Est GFR ( Amer) 38.8 Est GFR (Non-Af Amer) 33.5 BUN/Creatinine Ratio 62.5 H Glucose 113 H Calcium 8.3 L Phosphorus 6.3 H D Magnesium 4.1 H Triglycerides 329 H TSH Free T4 Specimen Hemolysis 09/23/20 09/23/20 09/23/20 10:23 10:23 13:45 WBC RBC Hgb POC Hgb 13.3 L Hct POC Hct 39 L MCV MCH MCHC RDW Std Deviation RDW Coeff of Royce Plt Count MPV Absolute Nucleated RBC Nucleated RBC % (auto) Neutrophils % (Manual) Lymphocytes % (Manual) Monocytes % (Manual) Metamyelocytes % (Man) Myelocytes % (Man) Plasma Cell % (Manual) Neutrophils # (Manual) Total Absolute Neuts Lymphocytes # (Manual) Total Abs Lymphocytes Monocytes # (Manual) Metamyelocytes # (Man) Myelocytes # (Manual) Plasma Cell # (Manual) RBC Morphology POC pH 7.08 L* POC pCO2 103 H POC pO2 80 POC HCO3 30 H POC Total CO2 34 H POC Base Excess 0.0 ABG pH 7.22 L ABG pCO2 75 H ABG pO2 68 L ABG HCO3 30 H POC ABG O2 Sat 88.0 L ABG O2 Saturation 92.3 ABG Base Excess -0.3 Reginald Test Pos Barometric Pressure 734.1 Oxygen Given 77% POC Sodium 141 Sodium 138 POC Potassium 6.0 H Potassium 5.7 H Chloride 105 Carbon Dioxide 29 Anion Gap 4.0 BUN 143 H Creatinine 2.24 H Est Cr Clr Drug Dosing 51.3 Est GFR ( Amer) 36.1 Est GFR (Non-Af Amer) 31.2 BUN/Creatinine Ratio 63.8 H Glucose 140 H Calcium 8.3 L Phosphorus Magnesium Triglycerides TSH 0.425 Free T4 0.62 L Specimen Hemolysis 09/23/20 09/23/20 09/23/20 15:21 17:15 17:20 WBC RBC Hgb POC Hgb Hct POC Hct MCV MCH MCHC RDW Std Deviation RDW Coeff of Royce Plt Count MPV Absolute Nucleated RBC Nucleated RBC % (auto) Neutrophils % (Manual) Lymphocytes % (Manual) Monocytes % (Manual) Metamyelocytes % (Man) Myelocytes % (Man) Plasma Cell % (Manual) Neutrophils # (Manual) Total Absolute Neuts Lymphocytes # (Manual) Total Abs Lymphocytes Monocytes # (Manual) Metamyelocytes # (Man) Myelocytes # (Manual) Plasma Cell # (Manual) RBC Morphology POC pH 7.16 L* 7.24 L POC pCO2 86 H 71 H POC pO2 78 L 70 L POC HCO3 31 H 30 H POC Total CO2 33 H 32 H POC Base Excess 2.0 H 3.0 H ABG pH ABG pCO2 ABG pO2 ABG HCO3 POC ABG O2 Sat 90.0 90.0 ABG O2 Saturation ABG Base Excess Reginald Test Barometric Pressure Oxygen Given POC Sodium Sodium 137 POC Potassium Potassium 6.3 H* Chloride 104 Carbon Dioxide 27 Anion Gap 6.0 BUN 143 H Creatinine 2.52 H Est Cr Clr Drug Dosing 45.6 Est GFR ( Amer) 31.3 Est GFR (Non-Af Amer) 27.0 BUN/Creatinine Ratio 56.8 H Glucose 158 H Calcium 8.6 Phosphorus 8.2 H D Magnesium 4.2 H Triglycerides TSH Free T4 Specimen Hemolysis 09/23/20 09/23/20 21:22 22:03 WBC RBC Hgb POC Hgb Hct POC Hct MCV MCH MCHC RDW Std Deviation RDW Coeff of Royce Plt Count MPV Absolute Nucleated RBC Nucleated RBC % (auto) Neutrophils % (Manual) Lymphocytes % (Manual) Monocytes % (Manual) Metamyelocytes % (Man) Myelocytes % (Man) Plasma Cell % (Manual) Neutrophils # (Manual) Total Absolute Neuts Lymphocytes # (Manual) Total Abs Lymphocytes Monocytes # (Manual) Metamyelocytes # (Man) Myelocytes # (Manual) Plasma Cell # (Manual) RBC Morphology POC pH 7.19 L* POC pCO2 78 H POC pO2 65 L POC HCO3 30 H POC Total CO2 32 H POC Base Excess 1.0 ABG pH ABG pCO2 ABG pO2 ABG HCO3 POC ABG O2 Sat 86.0 L ABG O2 Saturation ABG Base Excess Reginald Test Barometric Pressure Oxygen Given POC Sodium Sodium 140 POC Potassium Potassium 5.7 H Chloride 104 Carbon Dioxide 30 Anion Gap 6.0 BUN 149 H Creatinine 2.51 H Est Cr Clr Drug Dosing 45.7 Est GFR ( Amer) 31.5 Est GFR (Non-Af Amer) 27.1 BUN/Creatinine Ratio 59.5 H Glucose 162 H Calcium 8.8 Phosphorus Magnesium Triglycerides TSH Free T4 Specimen Hemolysis Medications Administered Current Inpatient Medications Budesonide (Budesonide 0.5 Mg/2 Ml Vial (Pulmicort)) 0.5 mg NEB BIDR JASEN Stop: 10/22/20 18:59 Last Admin: 09/23/20 19:59 Dose: Not Given Documented by: Docusate Sodium (Docusate Sodium Syrup 100 Mg/10 Ml Udc) 100 mg PO BID JASEN Stop: 10/17/20 11:59 Last Admin: 09/23/20 20:11 Dose: 100 mg Documented by: Fentanyl Citrate (Fentanyl Bolus From Bag) 50 mcg IV Q60M PRN PRN Reason: Pain or Agitation Stop: 09/30/20 13:07 Last Admin: 09/18/20 23:41 Dose: 50 mcg Documented by: Heparin Sodium (Beef Lung) (Heparin 10 Unit/Ml 5 Ml Flush) 5 ml FLUSH PRN PRN PRN Reason: Flush Stop: 10/17/20 00:02 Heparin Sodium (Porcine) (Heparin Sod 5,000 Unit/0.5 Ml Vial) 7,500 units SQ Q8 JASEN Stop: 10/20/20 05:59 Last Admin: 09/23/20 20:11 Dose: 7,500 units Documented by: Fentanyl Citrate (Fentanyl Drip) 1,250 mcg in 250 mls @ 25 mls/hr IV .Q10H [facility]; Protocol Stop: 09/30/20 13:14 Last Admin: 09/23/20 21:53 Dose: 125 mcg/hr, 25 mls/hr Documented by: Famotidine 20 mg/ Syringe 5 mls @ 2.5 mls/min IV Q12 JASEN Stop: 10/17/20 11:59 Last Admin: 09/23/20 20:11 Dose: 2.5 mls/min Documented by: Dexamethasone 10 mg/ Syringe 2.5 mls @ 1 mls/min IV DAILY JASEN Stop: 10/01/20 09:01 Dexamethasone 20 mg/ Dextrose 30 mls @ 120 mls/hr IV DAILY [facility] Stop: 09/26/20 09:14 Last Infusion: 09/23/20 08:59 Dose: Infused Documented by: Dexmedetomidine HCl 1,000 mcg/ (Sodium Chloride) 250 mls @ 36.6 mls/hr IV .Q6H50M JASEN; Protocol Stop: 09/26/20 17:59 Last Admin: 09/23/20 23:19 Dose: 1 mcg/kg/hr, 36.6 mls/hr Documented by: Cisatracurium Besylate 40 mg/ (Sodium Chloride) 100 mls @ 10.605 mls/hr IV .Q9H26M JASEN; Protocol Stop: 10/23/20 00:29 Last Admin: 09/23/20 21:54 Dose: 1 mcg/kg/min, 10.6 mls/hr Documented by: Epoprostenol Sodium 1.5 mg/ (Syringe) 50 mls @ 7 mls/hr INH .CONTINUOUS NEB PRN; Protocol PRN Reason: continuous neb titrated by RT Stop: 10/23/20 11:59 Last Admin: 09/23/20 17:08 Dose: 7 mls/hr Documented by: Cefepime HCl 2,000 mg/ Syringe 20 mls @ 5 mls/min IV Q12H JASEN Stop: 09/25/20 11:29 Last Admin: 09/23/20 11:42 Dose: 5 mls/min Documented by: Furosemide 100 mg/ Dextrose 100 mls @ 10 mls/hr IV .Q10H JASEN Stop: 10/23/20 22:29 Last Admin: 09/23/20 23:11 Dose: 10 mg/hr, 10 mls/hr Documented by: Levothyroxine Sodium (Levothyroxine Sodium 150 Mcg Tablet) 150 mcg PO DAILYBB [facility] Stop: 10/18/20 06:29 Last Admin: 09/23/20 05:11 Dose: 150 mcg Documented by: Multivitamins/Minerals (Multi Vit W/Minerals Liquid 15 Ml Udp) 15 ml NG QAM JASEN Stop: 10/17/20 08:59 Last Admin: 09/23/20 08:41 Dose: 15 ml Documented by: Nutritional Formula (Peptamen Intense Vhp 1.0 Shay 1,000 Ml Bag) 1,000 ml OG UD [facility]; Protocol Stop: 10/16/20 18:14 Last Admin: 09/18/20 15:58 Dose: 1,000 ml Documented by: Sterile Water (Tube Feeding Water Flush) 30 ml OG Q4H JASEN Stop: 10/16/20 18:14 Last Admin: 09/23/20 18:11 Dose: 30 ml Documented by: PG Care Time/CCT Total # of Minutes Spent Total Time Spent with Patient: Total time spent is greater than 50% in coordination of care (as documented) at patient's floor/unit and/or counseling patient: Coding Level of Care Code 20973 Subseq Hosp Care Lvl 2 Diagnoses Pneumonia due to COVID-19 virus U07.1; J12.82 Acute respiratory failure with hypoxia J96.01 AKSHAT (acute kidney injury) N17.9 Hyperkalemia E87.5 Obesity (BMI 35.0-39.9 without comorbidity) E66.9 Hypothyroid E03.9 Elevated troponin R77.8 SIRS (systemic inflammatory response syndrome) R65.10 Demand ischemia I24.8
[2020-09-24] MEDS: PEPTAMEN INTENSE VHP 1.0 CAL 1,000 ML BAG OG SCH (03:12)
[2020-09-24 04:13] LABS: iSTAT Arterial Blood Gas HCO3 32 meg/L (19-24); iSTAT Arterial Blood Gas pCO2 75 mmHg (35-46); iSTAT Arterial Blood Gas pH 7.23 (7.35-7.45); iSTAT Arterial Blood Gas pO2 71 mmHg (80-95); iSTAT Carbon Dioxide 34 mmol/L (24-31)
[2020-09-24] MEDS: EPOPROSTENOL SODIUM INH PRN (05:02)
[2020-09-24] MEDS: DEXMEDETOMIDINE HCL 1,000 MCG in SODIUM CHLORIDE 0.9% 240 ML IV SCH ×5 (05:10→11:32)
[2020-09-24] MEDS: fentaNYL DRIP 1,250 MCG/250 ML BAG IV SCH ×3 (05:11→08:04)
[2020-09-24] MEDS: CISATRACURIUM BESYLATE 40 MG in 0.9 % SODIUM CHLORIDE 80 ML IV SCH ×5 (05:11→11:36)
[2020-09-24 05:28] LABS: Mean Platelet Volume 11.1 fL (7.4-10.4); Nucleated RBC # (auto) 0.05 K/uL (0-0); Nucleated RBC % (auto) 0.6 %; Platelet Count 337 K/uL (130-400)
[2020-09-24 05:54] LABS: Est GFR (Non-African American) 25.9; Phosphorus 7.8 mg/dl (2.5-4.9); Potassium 5.9 mmol/L (3.5-5.1)
[2020-09-24 05:58] LABS: ALC (manual) 1.04 K/uL (1.2-3.4); ANC (manual) 5.98 K/uL (1.4-6.5); Basophilic Stippling 1+; Hematocrit (blood only) 34.4 % (42-52); Lymphocytes # (manual) 1.04 K/uL (1.2-3.4); Lymphocytes % (manual) 11.8 %; Mean Corpuscular Hemoglobin 31.2 pg (25-34); Mean Corpuscular Volume 97.5 fL (80-100); Metamyelocytes # (manual) 0.11 K/uL (0-0); Metamyelocytes % (manual) 1.3 %; Monocytes # (manual) 1.12 K/uL (0.11-0.59); Monocytes % (manual) 12.7 %; Myelocytes # (manual) 0.58 K/uL (0-0); Myelocytes % (manual) 6.6 %; Neutrophils # (manual) 5.98 K/uL (1.4-6.5); Neutrophils % (manual) 67.6 %; Polychromasia 1+; RDW Standard Deviation 61.9 fL (36.4-46.3); Red Blood Count 3.53 M/uL (4.7-6.1); White Blood Count 8.84 K/uL (4.8-10.8)
[2020-09-24] MEDS ORDERED: INSULIN HUMAN REGULAR PER UNIT 10 UNITS in SYRINGE 0 ML IV STA (06:14)
[2020-09-24] MEDS ORDERED: DEXTROSE 50% 50 ML SYRINGE IV ONE (06:14)
[2020-09-24] MEDS ORDERED: SODIUM POLYSTYRENE SULFONATE 15G/60ML SUSP PO STA (06:14)
[2020-09-24] MEDS ORDERED: INSULIN HUMAN REGULAR PER UNIT 10 UNITS in SYRINGE 9.9 ML IV STA (06:21)
[2020-09-24 06:24] LABS: BUN Creatinine Ratio 60.5 (10-20)
[2020-09-24] MEDS: HEPARIN SOD 5,000 UNIT/0.5 ML VIAL SQ SCH (06:25)
[2020-09-24] MEDS: LEVOTHYROXINE SODIUM 150 MCG TABLET PO SCH (06:26)
[2020-09-24] MEDS: MULTI VIT W/MINERALS LIQUID 15 ML UDP NG SCH (07:51)
[2020-09-24] MEDS: DOCUSATE SODIUM SYRUP 100 MG/10 ML UDC PO SCH (07:51)
[2020-09-24] MEDS: FAMOTIDINE 20 MG in SYRINGE 3 ML IV SCH (07:55)
[2020-09-24] MEDS: dexAMETHasone 20 MG in DEXTROSE 5% 25 ML IV SCH (07:55)
[2020-09-24] MEDS: TUBE FEEDING WATER FLUSH OG SCH ×3 (08:03→10:44)
[2020-09-24] MEDS: BUDESONIDE 0.5 MG/2 ML VIAL (PULMICORT) NEB SCH (08:06)
--- NOTE | 2020-09-24 08:42 | Critical Care Progress Note ---
Date of Service September 24, 2020 Assessment & Plan (1) Acute respiratory failure with hypoxia: Impression: 60-year-old male with acute hypoxic respiratory failure due to COVID 19 PNA and ARDS. Intubated 09/16/20 Recommendations: Neuro: Continue Precedex, fentanyl and Nimbex drip. Propofol weaned off yesterday due to hypertriglyceridemia. Triglyceride levels improved to 329 today. Resp: Acute hypoxic respiratory failure secondary to COVID-19 pneumonia. Continue Nimbex drip to promote ventilator synchrony. Continue Decadron to 20 mg daily for 5 days followed by 10 mg daily for 5 days per the DEXA ARDS protocol. Continue inhaled epoprostenol. Continues with severe ARDS. Prognosis is extremely poor at this point. He seems to be worse with proning. Patient with very elevated plateau pressures and is difficult to ventilate. Severe respirato ry acidosis present. CV: Likely had demand ischemia earlier in the hospitalization. He is hemodynamically stable. No indication for echocardiogram currently. Fluids/Renal: Patient with worsening renal failure and uremia. Continues to have hyperkalemia that is being treated with D50, insulin and Lasix drip. He is very volume overloaded. Renal is consulted and will need to address dialysis with the family. ID: Procalcitonin elevated to 5.0. CRP level 12.8. Possibly related to renal failure. Continue empiric cefepime. Previous cultures are negative from the urine, sputum and blood. GI/Nutrition: Continue with tube feeds. Hold around the time of pronation and supination. Follow LFTs for now. H2 yuly in place. Triglyceride level improved to 329. Heme: Continue with heparin 5000 units subcu every 8 hours. No other acute issues at this time. Endocrine: ICU hyperglycemia protocol Hypothyroidism -Continue home Synthroid TSH within normal limits Vascular access: Left subclavian triple-lumen placed 09/16, right radial arterial line placed 09/16 Code Status: Full code Disposition: Palliative care consult was placed. Remain the ICU. CRITICAL CARE TIME - I have personally spent 45 minutes of critical care time in the direct management of this patient. This is a life/limb threatening event. This includes time spent evaluating patient, direct bedside care, chart review, placing orders, interpretation of diagnostic studies, discussion with consultants, patient, and family members, as well as other required patient management activities. This time is exclusive of all separately billable procedures, and teaching time and separate from and in addition to any other critical care service time. (2) Pneumonia due to COVID-19 virus: (3) Obesity (BMI 35.0-39.9 without comorbidity): (4) AKSHAT (acute kidney injury): (5) Hyperkalemia: (6) Morbid obesity due to excess calories: Admission and Anticipated Discharge Date Admission Date: September 16, 2020 Subjective Patient seen and examined. He is currently supine. He is requiring very high amounts of ventilatory support with PEEP of 20 and an FiO2 of 70%. He is currently on inhaled Flolan. He is also on Lasix drip at 20 mg an hour, Precedex, fentanyl and Nimbex drip. Review of Systems Review of Systems: Unobtainable due to cognitive status Physical Exam Constitutional: + morbidly obese Patient continues to be heavily sedated and paralyzed Eyes: PERRL, conjunctivae normal, anicteric sclerae ENMT: external ear and nose normal, oropharynx normal Neck: trachea midline, no thyromegaly Respiratory: normal respiratory effort, lungs clear to auscultation Cardiovascular: RRR, no murmur, no edema Gastrointestinal (Abdomen): normal bowel sounds, soft, nontender, no hepatosplenomegaly Musculoskeletal: Extremities: extremities normal to inspection Skin: no rashes, warm and dry Neurologic: Unable to fully assess as he is currently paralyzed. Psychiatric: Unable to fully assess Lymphatic: no cervical lymphadenopathy Results & Data Results & Data ([facility]) Vital Signs (Past 12 Hours) Vital Signs Temp Pulse Resp BP Pulse Ox 09/24/20 07:10 88 34 H 136/64 91 09/24/20 05:54 63 34 H 134/64 91 09/24/20 05:05 68 34 H 148/72 H 90 09/24/20 04:00 67 34 H 144/70 H 92 09/24/20 03:53 67 34 H 92 09/24/20 03:05 71 34 H 175/75 H 92 09/24/20 02:30 98.8 F 69 93 09/24/20 02:00 98.6 F 67 92 09/24/20 01:57 66 34 H 93 09/24/20 01:56 66 34 H 149/71 H 93 09/24/20 01:48 98.6 F 65 143/79 H 93 09/24/20 01:30 98.6 F 64 93 09/24/20 01:03 64 34 H 146/71 H 93 09/24/20 01:00 98.4 F 64 93 09/24/20 00:48 98.2 F 64 141/77 H 93 09/24/20 00:30 98.2 F 64 93 09/24/20 00:02 64 34 H 140/69 92 09/24/20 00:00 98.1 F 64 92 09/23/20 23:48 98.1 F 63 138/75 92 09/23/20 23:30 98.1 F 63 92 09/23/20 23:07 61 34 H 139/69 92 09/23/20 23:00 97.9 F 63 92 09/23/20 22:48 97.9 F 64 135/77 93 09/23/20 22:30 97.7 F 66 92 09/23/20 22:05 34 H 09/23/20 22:02 81 34 H 195/78 H 90 09/23/20 22:00 97.7 F 85 89 L 09/23/20 21:55 81 34 H 90 09/23/20 21:48 97.7 F 79 172/86 H 90 09/23/20 21:30 97.5 F L 70 89 L 09/23/20 21:01 74 34 H 167/74 H 92 09/23/20 21:00 97.5 F L 72 92 09/23/20 20:48 97.5 F L 74 156/89 H 91 reviewed the vital signs, labs and imaging Coding Level of Care Code Critical Care 1st 30-74 mins Diagnoses Acute respiratory failure with hypoxia J96.01 Pneumonia due to COVID-19 virus U07.1; J12.82 Obesity (BMI 35.0-39.9 without comorbidity) E66.9 AKSHAT (acute kidney injury) N17.9 Hyperkalemia E87.5 Morbid obesity due to excess calories E66.01 Time Spent (min) 45
--- NOTE | 2020-09-24 08:56 | XRay Report ---
XR chest 1V portable HISTORY: 60 years-old Male resp failure acute respiratory failure COMPARISON: Chest radiograph 09/23/2020 TECHNIQUE: Portable AP view of the chest FINDINGS: Endotracheal tube overlies the midline, 4.9 cm superior to the fernando. Enteric tube courses below the diaphragm with distal tip projected over the stomach. Left subclavian central venous catheter distal tip projects over the mid SVC. Enlarged cardiac silhouette. No pneumothorax. Suggested small right pleural effusion. Extensive bilat eral airspace opacities redemonstrated and have mildly progressed within the right lung base. Bones a ppear grossly intact. IMPRESSION: 1. Lines and tubes as above. 2. Extensive bilateral airspace opacities redemonstrated, mildly progressed within the right lung bas e. ACT 112: Negative or not required by law. The above report was generated using voice recognition software. It may contain grammatical, syntax o r spelling errors. Electronically signed by: Kofi Ledezma M.D. 09/24/2020 8:54 AM
[2020-09-24] MEDS: FUROSEMIDE 100 MG in DEXTROSE 5% 90 ML IV SCH (09:13)
--- NOTE | 2020-09-24 10:22 | Palliative Care Consultation ---
Date of Consultation September 24, 2020 Assessment & Plan (1) Palliative care encounter: Discussed with team in ICU rounds. He has multiorgan failure with ARDS and covid pneumonia. I spoke with his niece, Cris, to review her understanding of his condition. We discussed developments today and progressive renal failure. She has known Hay her whole life and she and his brother, Garth, are his closest family members. She tells me that Hay talked with them about not wanting any kind of feeding tube or artificial nutrition as eating was very important to him. He has said in the past that if he was not able to return to be the person he was before, he would not want to live. She is certain that he would not want dialysis. Considering the wishes that Hay has expressed in the past, Cris and her brother have decided not to pursue further aggressive interventions and shift focus of care to comfort. She is agreeable to withdrawing supportive care and understands that he will . We discussed her and Garth coming in for window visit to see their uncle. She declines, saying that she would prefer to remember him without tubes and would not want to see him if she couldn't hold his hand. Discussed with RN and Dr. Moulton. Dr. Saeed aware. (2) Acute respiratory failure with hypoxia: (3) Pneumonia due to COVID-19 virus: (4) AKSHAT (acute kidney injury): (5) Hyperkalemia: History of Present Illness Reason for Consultation: goals of care Requesting Physician: Dr. Saeed Attending Physician: Ward Saeed, History of Present Illness 60 yo gentleman who lived alone and was independent prior to admission. He was found to be minimally responsive at home and was hypoxic with SPO2 of 55. He has been intubated for one week. He is covid positive and is being treated for covid pneumonia with subsequent ARDS. He has elevated plateau pressures. PEEP has been increased to 20 today. Despite increased oxygen concentrations, he has been hypoxic in the 80s. Due to his body habitus, he is not able to be proned. He has also unfortunately developed acute on chronic renal failure with uremia and BUN of 158 today. He is followed by nephrology who has recommended dialysis. Allergies Allergy/AdvReac Type Severity Reaction Status Date / Time No Known Allergies Allergy Unverified 05/24/16 12:21 Home Medications Medication Instructions Recorded Confirmed Type FUROSEMIDE (LASIX) 40 mg PO BID #0 05/13/16 History LEVOTHYROXINE SODIUM (SYNTHROID) 150 mcg PO QAM #0 05/13/16 History Potassium Chloride (Micro-K Ext 10 meq PO BID #0 05/13/16 History Rel) amoxicillin-pot clavulanate 1 tab PO UD 09/16/20 09/16/20 History furosemide 40 mg PO BID 09/16/20 09/16/20 History levothyroxine 175 mcg PO UD 09/16/20 09/16/20 History potassium chloride 10 meq PO BID 09/16/20 09/16/20 History Patient History Medical History Hyperkalemia Morbid obesity due to excess calories Family History Unknown No significant family history Social History Smoking Status: Never smoker Preferred Language: Nepali Communication Ability: Unable Current Living Situation: Alone Feels Safe at Home: Yes Assistive Devices: Oxygen - Continuous Review of Systems Review of Systems: Unobtainable due to endotracheal tube and Unobtainable due to reduced consciousness Palliative Performance Score 10% Physical Exam Constitutional: + mechanically ventilated deeply sedated on paralytics ENMT: ET tube Respiratory: SPO2 89 on 80% FiO2 Cardiovascular: Rate/Rhythm: regular rate and regular rhythm Gastrointestinal (Abdomen): Inspection/Auscultation: + significant pannus Neurologic: + obtunded Results & Data ([facility]) Vital Signs (Past 12 Hours) Vital Signs Temp Pulse Resp BP Pulse Ox 09/24/20 08:37 109 H 34 H 156/71 H 88 L 09/24/20 07:10 88 34 H 136/64 91 09/24/20 05:54 63 34 H 134/64 91 09/24/20 05:05 68 34 H 148/72 H 90 09/24/20 04:00 67 34 H 144/70 H 92 09/24/20 03:53 67 34 H 92 09/24/20 03:05 71 34 H 175/75 H 92 09/24/20 02:30 98.8 F 69 93 09/24/20 02:00 98.6 F 67 92 09/24/20 01:57 66 34 H 93 09/24/20 01:56 66 34 H 149/71 H 93 09/24/20 01:48 98.6 F 65 143/79 H 93 09/24/20 01:30 98.6 F 64 93 09/24/20 01:03 64 34 H 146/71 H 93 09/24/20 01:00 98.4 F 64 93 09/24/20 00:48 98.2 F 64 141/77 H 93 09/24/20 00:30 98.2 F 64 93 09/24/20 00:02 64 34 H 140/69 92 09/24/20 00:00 98.1 F 64 92 09/23/20 23:48 98.1 F 63 138/75 92 09/23/20 23:30 98.1 F 63 92 09/23/20 23:07 61 34 H 139/69 92 09/23/20 23:00 97.9 F 63 92 09/23/20 22:48 97.9 F 64 135/77 93 09/23/20 22:30 97.7 F 66 92 PG Care Time/CCT Total # of Minutes Spent Total Time Spent with Patient: Total time spent is greater than 50% in coordination of care (as documented) at patient's floor/unit and/or counseling patient: total time spent 70 minutes with more than 50% of time spent on goals of care, family communication and support, coordination of care. Coding Level of Care Code 81912 Inpt Consult Level 4 Diagnoses Palliative care encounter Z51.5 Acute respiratory failure with hypoxia J96.01 Pneumonia due to COVID-19 virus U07.1; J12.82 AKSHAT (acute kidney injury) N17.9 Hyperkalemia E87.5 Time Spent (min) 70
[2020-09-24] MEDS ORDERED: NOVASOURCE RENAL 2.0 CAL 1000ML BAG OG SCH (10:30)
[2020-09-24] MEDS ORDERED: ONDANSETRON 4 MG OD TAB SL PRN (10:32)
[2020-09-24] MEDS ORDERED: ONDANSETRON INJ 2 MG/ML 2 ML VIAL IV PRN (10:32)
[2020-09-24] MEDS ORDERED: MoRPHine SULFATE 2 MG/ML CARP IV PRN (10:32)
[2020-09-24] MEDS ORDERED: LORazepam 0.5 MG/1 ML VIAL IV PRN (10:32)
[2020-09-24] MEDS ORDERED: ACETAMINOPHEN 325 MG TAB PO PRN (10:32)
[2020-09-24] MEDS ORDERED: LORazepam 0.5 MG TAB PO PRN (10:32)
--- NOTE | 2020-09-24 10:42 | Nephrology Consultation ---
Date of Consultation September 24, 2020 Assessment & Plan (1) AKSHAT (acute kidney injury): Mr. Garcia was admitted with acute respiratory failure secondary to COVID pneumonia and intubated on admission. Has been clinically declining since admission. Currently intubated and on paralytics. No known history of chronic kidney disease, on admission creatinine was 1.2 which progressively discussed decline over last few days and creatinine currently 2.6 and BUN 58 with persistent hyperkalemia. Urine output has been decent, net more than 7 L positive, blood pressure has been acceptable without any pressor. --as potassium remained elevated, may need to consider dialysis for correction of electrolyte and azotemia. Overall prognosis remains extremely poor, currently intensive care team is planning to discuss with family about goals of care. If family decides to continue aggressive care, will plan for dialysis this afternoon. --dose meds for GFR less than 10 Will follow Thank you for allowing me to participate in your patient's care. It was a pleasure to see Mr. Garcia (2) Hyperkalemia: (3) Acute respiratory failure with hypoxia: (4) Pneumonia due to COVID-19 virus: History of Present Illness Reason for Consultation: Acute kidney injury, hyperkalemia, azotemia. Attending Physician: Ward Saeed, History of Present Illness Mr. Garcia is a 60-year-old gentlemen admitted to the hospital with COVID pneumonia and respiratory failure. Nephrology consult requested for management of acute kidney injury hyperkalemia and azotemia. EMR records are reviewed in detail in patient's visit. Most of the informations were retrieved from EMR review and discussion with intensive care team as patient is currently intubated and sedated. Deshaun was admitted on 09/16/2020 with hypoxic respiratory failure and diagnosed with COVID pneumonia. He has been having respiratory symptoms more than a week prior to the admission and was treated outpatient with amoxicillin. His niece found him at home with decreased responsiveness and oxygen saturation in 50s and brought to the hospital by EMS. He was intubated on arrival because of hypoxic respiratory failure. Overall he has been declining clinically, has been on paralytic. Blood pressure has been acceptable. Has been having decent urine output. No known history of CKD, baseline creatinine seems to be around 0.8- 0.9. On admission creatinine was 1.2 which progressively worsened over last few days, this morning creatinine was 2.6 and BUN 158. Has been having hyperkalemia with potassium 6.3 slightly improved to 5.9. Currently he remained intubated, sedated. Allergies Allergy/AdvReac Type Severity Reaction Status Date / Time No Known Allergies Allergy Unverified 05/24/16 12:21 Home Medications Medication Instructions Recorded Confirmed Type FUROSEMIDE (LASIX) 40 mg PO BID #0 05/13/16 History LEVOTHYROXINE SODIUM (SYNTHROID) 150 mcg PO QAM #0 05/13/16 History Potassium Chloride (Micro-K Ext 10 meq PO BID #0 05/13/16 History Rel) amoxicillin-pot clavulanate 1 tab PO UD 09/16/20 09/16/20 History furosemide 40 mg PO BID 09/16/20 09/16/20 History levothyroxine 175 mcg PO UD 09/16/20 09/16/20 History potassium chloride 10 meq PO BID 09/16/20 09/16/20 History Patient History Medical History Hyperkalemia Morbid obesity due to excess calories Family History Unknown No significant family history Social History Smoking Status: Never smoker Preferred Language: Bahraini Communication Ability: Unable Current Living Situation: Alone Feels Safe at Home: Yes Assistive Devices: Oxygen - Continuous Review of Systems Review of Systems: Unobtainable due to endotracheal tube and Unobtainable due to reduced consciousness Physical Exam Constitutional: + mechanically ventilated; no acute distress Eyes: + anicteric sclerae Neck: normal visual inspection Respiratory: Auscultation: + diminished lung sounds and + crackles Cardiovascular: RRR, no murmur, no edema Gastrointestinal (Abdomen): Inspection/Auscultation: abdomen normal to inspection and normal bowel sounds Percussion/Palpation: abdomen soft Musculoskeletal: Extremities: extremities normal to inspection Skin: no rashes, warm and dry Neurologic: on paralytic Results & Data (MN) Vital Signs (Past 12 Hours) Vital Signs Temp Pulse Resp BP Pulse Ox 09/24/20 09:32 115 H 34 H 146/69 H 88 L 09/24/20 08:37 109 H 34 H 156/71 H 88 L 09/24/20 07:10 88 34 H 136/64 91 09/24/20 05:54 63 34 H 134/64 91 09/24/20 05:05 68 34 H 148/72 H 90 09/24/20 04:00 67 34 H 144/70 H 92 09/24/20 03:53 67 34 H 92 09/24/20 03:05 71 34 H 175/75 H 92 09/24/20 02:30 37.1 C 69 93 09/24/20 02:00 37.0 C 67 92 09/24/20 01:57 66 34 H 93 09/24/20 01:56 66 34 H 149/71 H 93 09/24/20 01:48 37.0 C 65 143/79 H 93 09/24/20 01:30 37.0 C 64 93 09/24/20 01:03 64 34 H 146/71 H 93 09/24/20 01:00 36.9 C 64 93 09/24/20 00:48 36.8 C 64 141/77 H 93 09/24/20 00:30 36.8 C 64 93 09/24/20 00:02 64 34 H 140/69 92 09/24/20 00:00 36.7 C 64 92 09/23/20 23:48 36.7 C 63 138/75 92 09/23/20 23:30 36.7 C 63 92 09/23/20 23:07 61 34 H 139/69 92 09/23/20 23:00 36.6 C 63 92 09/23/20 22:48 36.6 C 64 135/77 93 PG Care Time/CCT Total # of Minutes Spent Total Time Spent with Patient: Total time spent is greater than 50% in coordination of care (as documented) at patient's floor/unit and/or counseling patient: Coding Level of Care Code 18806 Initial Inpt Care Lvl 3 Diagnoses AKSHAT (acute kidney injury) N17.9 Hyperkalemia E87.5 Acute respiratory failure with hypoxia J96.01 Pneumonia due to COVID-19 virus U07.1; J12.82
[2020-09-24] MEDS ORDERED: MoRPHine SULF/NSS 250 MG/250 ML BTL IV SCH (10:45)
[2020-09-24] MEDS ORDERED: ATROPINE SULFATE 1% OP SOLN 5 ML BTL SL PRN (10:45)
[2020-09-24 11:13] LABS: Calcium 8.5 mg/dl (8.5-10.1); Creatinine Clr Calc Pharmacy 41.9 ml/min; Est GFR (African American) 28.3; Est GFR (Non-African American) 24.4; Magnesium 3.7 mg/dl (1.8-2.4); Phosphorus 7.9 mg/dl (2.5-4.9)
[2020-09-24 11:19] LABS: BUN Creatinine Ratio 60.8 (10-20)
--- NOTE | 2020-09-24 13:30 | Death Pronouncement Note ---
Date of Service September 24, 2020 Pronouncement Note Admission Date Admission Date: September 16, 2020 Date and Time of Date of : 09/24/20 Time of : 13:00 PCOD Preliminary cause of : COVID-19 Contributing Factors (1) AKSHAT (acute kidney injury): (2) Hyperkalemia: (3) Acute respiratory failure with hypoxia: (4) Pneumonia due to COVID-19 virus: Hospital Course Hospital Course: see discharge summary Additional Data Confirmation of : no pulse, no respirations, no heart sounds and pupils fixed and dilated Family: contacted Attending/PCP notified?: Yes Attending physician: Ward Saeed, DO Was code activated?: No Autopsy requested?: No cigarette package examiner notified?: No Organ bank notified?: Yes Advance directives: No Coding Level of Care Code None Diagnoses AKSHAT (acute kidney injury) N17.9 Hyperkalemia E87.5 Acute respiratory failure with hypoxia J96.01 Pneumonia due to COVID-19 virus U07.1; J12.82
--- NOTE | 2020-09-24 13:38 | Discharge Summary ---
Date of Service September 24, 2020 Admission HPI Per Admitting Provider 60 YOM with no notes in our system. He is a patient of Luís Mccoy, attempted to records to review. All information in H&P is from EMS report and EMD Physician report. The patient was brought in by EMS after being found down by his niece this morning. Reportedly his SPO2 via EMS was 55, he was able to provide a brief amount of medication history and that he wanted to be full code. The patient was then subsequently intubated in the EMD. Upon my review the patient SPO2 was 84-88% on 14 of PEEP and 100% FiO2, BP 80's/40, and sedated with Propofol 45mcg/kg/min. Patient was placed on Levophed drip for MAPS and notified the ICU Attending. ICU Attending Dr. Beckwith met me at the bedside, where we emergently placed Left subclavian central line and a Right radial arterial line. SPO2 increased to 90-94 with increase in PEEP to 20 as well as MAPS increased to 70 on 0.5mcg/kg/min of Levophed. He was hemodynamically stable and respiratory stable for transport to the ICU. His status is tenuous at this time, we are unable to reach any family with the records we have. Will continue to attempt to find any other information for contact. Appreciate EMD and ICU assistance with this patient. Principal Diagnosis COVID 19 pneumonia, acute hypoxic respiratory failure Discharge Exam no pulse, no respirations, no heart tones, no breath sounds, pupils fixed Discharge Data Allergies Allergy/AdvReac Type Severity Reaction Status Date / Time No Known Allergies Allergy Unverified 05/24/16 12:21 Consultations 09/16/20 12:04 ED Decision to Admit Stat 09/16/20 14:59 Consult Pit Inspector Routine 09/23/20 12:39 Consult Palliative Care Routine 09/23/20 21:13 Consult Nephrology Routine 09/24/20 10:32 Consult Palliative Care Routine Ordered Studies 09/16/20 11:51 CT angio chest PE protocol Stat 09/16/20 14:50 CT head/brain wo con Routine Hospital Course (1) Pneumonia due to COVID-19 virus: Severe COVID -Patient remains intubated. - Decadron 20mg IV daily x 5 days then 10mg IV daily x 5 days Precedex and Fentanyl for sedation, paralyzed today for prone position - on ventillation: high peep. - Supportive Care, ARDSnet ventilation per ICU patient not improving, developing worsening renal failure palliative care discussed with family, niece Cris, she said her uncle would not want feeding tubes, would not want dialysis he would not want further life sustaining measures if he could not return to person he used to be decision made by family to withdraw care and make patient comfortable extubated at 1250 and patient at 1300 family notified over the phone (2) Acute respiratory failure with hypoxia: As above due to COVID 19 requiring high PEEP Precedex and Fentanyl for sedation paralyze and prone unfortunately no improvement in ventilation, unlikely to get better and would need tracheostomy family would not want this he was made comfort care, terminal extubation on 09/24 (3) AKSHAT (acute kidney injury): AKSHAT stage II- as above organ dysfunction form SIRS/Sepsis/COVID - Baseline 0.79 - Avoid nephrotoxic agents if able, if needed will minimize exposure time as able to - MAPS >65 - creatinine rising to 2.2, 2.5 on 09/23, with high K Lasix drip started to improve UO and treat hyperK further worsening of Cr to 2.7 today, poor UO per family, he would not want dialysis (4) Hyperkalemia: improved with Lasix IV drip follow closely (5) Morbid obesity due to excess calories: (6) Palliative care encounter: Total Time Total Time Spent Total Time Spent (In Minutes): 20 Total Time Includes: Examination of the Patient Discharge Plan Discharge Items Reason For Visit: COVID,RESPIRATORY FAILURE Condition on Discharge: Critical Follow-up/Referrals: Luís Hooper MD [Primary Care Provider] - Addtl Manufacturing Technician Provider Instructions: Follow up with your PCP for a repeat CT scan of the chest in approximately 3 months. Medications and DC Order Prescriptions: No Action FUROSEMIDE (LASIX) 40 MG tablet 40 mg PO BID Qty: 0 RF: 0 LEVOTHYROXINE SODIUM (SYNTHROID) 150 MCG tablet 150 mcg PO QAM Qty: 0 RF: 0 Potassium Chloride (Micro-K Ext Rel) 10 MEQ CONTR REL CAP 10 meq PO BID Qty: 0 RF: 0 furosemide 40 mg tablet 40 mg PO BID RF: 0 levothyroxine 175 mcg tablet 175 mcg PO UD RF: 0 potassium chloride 10 mEq tablet,ER particles/crystals 10 meq PO BID RF: 0 amoxicillin-pot clavulanate 500-125 mg tablet 1 tab PO UD RF: 0 Admission Data Admit Date/Time: 09/16/20 12:46 Attending Provider: Ward Saeed Admit Provider: Conor Morrison Primary Care Provider: Luís Hooper Other Providers: Conor Morrison ; Nasir Beckwith ; Jennifer Rodriguez ; Vale Do Coding Level of Care Code D/C Day Management <30 mins Diagnoses Pneumonia due to COVID-19 virus U07.1; J12.82 Acute respiratory failure with hypoxia J96.01 AKSHAT (acute kidney injury) N17.9 Hyperkalemia E87.5 Morbid obesity due to excess calories E66.01 Palliative care encounter Z51.5
--- NOTE | 2020-09-25 06:10 | Electrocardiogram Report ---
Test Reason : Blood Pressure : / mmHG Vent. Rate : 114 BPM Atrial Rate : 114 BPM P-R Int : 136 ms QRS Dur : 096 ms QT Int : 294 ms P-R-T Axes : 056 016 042 degrees QTc Int : 405 ms Sinus tachycardia Low voltage QRS Borderline ECG When compared with ECG of 16-SEP-2020 10:23, Incomplete right bundle branch block is no longer Present Minimal criteria for Anterior infarct are no longer Present Confirmed by Simon Clayton ([id number]) on 09/25/2020 6:09:56 AM Referred By: REFERRED SELF Confirmed By:Simon Clayton
[2020-09-27] MEDS ORDERED: dexAMETHasone 10 MG in SYRINGE 0 ML IV SCH (09:00)
== END 2020-09-24 14:30 | disposition expired | DRG 870 ==
LOC: ED 10:09 → SUATTDRO 12:46 → 1E 12:46